=== PATIENT | female | born 1940 | race Caucasian/White ===

== ENCOUNTER 2021-05-27 11:37 | Outpatient (REF) | payer MEDICARE, SELFPAY ==
[2021-05-27 13:51] LABS: MANUAL DIFF FLAG NO
[2021-05-27 14:07] LABS: Basophils Absolute Auto 0.1 X10*3/uL (0.0-0.2); Basophils Percent Auto 0.6 % (0-2); Eosinophils Absolute Auto 0.8 X10*3/uL (0.0-0.4); Hematocrit 38.9 % (37-47); Hemoglobin 12.8 g/dl (12.0-16.0); Imm Gran Abs Auto 0.03 X10*3/uL (0.00-0.03); Imm Gran Pct Auto 0.4 % (0.0-0.4); Lymphocytes Absolute Auto 1.3 X10*3/uL (1.2-4.9); Lymphocytes Percent Auto 15.3 % (20-40); Mean Corpuscular HGB Conc 32.9 g/dl (31.0-35.0); Mean Corpuscular Hemoglobin 31.1 pg (27.0-33.0); Mean Corpuscular Volume 94.6 fL (80-98); Mean Platelet Volume 9.4 fL (9.4-12.3); Monocytes Absolute Auto 0.6 X10*3/uL (0.1-1.2); Monocytes Percent Auto 7.5 % (2-11); Neutrophils Absolute Auto 5.6 X10*3/uL (2.0-8.3); Neutrophils Percent Auto 66.2 % (45-73); Platelet Count 299 X10*3/uL (160-400); Red Blood Count 4.11 X10*6/uL (4.20-5.50); Red Cell Distribution Width 13.6 % (11.0-16.0); White Blood Count 8.4 X10*3/uL (4.8-10.8)
[2021-05-27 14:23] LABS: Anion Gap 17 (12-20); Blood Urea Nitrogen 15 mg/dL (9-16); Calcium 9.6 mg/dL (8.4-10.2); Carbon Dioxide 24 mmol/L (22-29); Chloride 104 mmol/L (96-108); Estimated Glomerular Filt Rate > 60; Glucose Random 114 mg/dL (60-115); Potassium 4.5 mmol/L (3.3-5.1); Sodium 140 mmol/L (135-145)
== END 2021-05-27 11:38 | disposition home or self-care (01) ==
LOC: HO.HMGCLDS 11:37
PROVIDERS: PCP Internal Medicine; Visit Provider Internal Medicine
DX: R60.9 Edema, unspecified (principal); I10 Essential (primary) hypertension
CPT/HCPCS: 36415; 80048; 85025

== ENCOUNTER 2021-07-28 11:17 | Outpatient (REF) | payer MEDICARE, SELFPAY ==
--- NOTE | ~2021-07-28 | MM_ITS ---
EXAMINATION: MM SCREENING DIGITAL BREAST TOMOSYNTHESIS, BILATERAL CLINICAL INFORMATION: Screening. Asymptomatic. The lifetime risk of breast cancer based on the Tyrer-Cuzick Model is under 2%. COMPARISON: Mammography: 07/22/2020, 04/04/2019, 02/02/2010 TECHNIQUE: Digital breast tomosynthesis is performed in both the craniocaudal and mediolateral oblique views along with computer-aided detection (CAD). Synthesized 2D images are generated from the tomosynthesis. FINDINGS: There are scattered areas of fibroglandular density (ACR BI-RADS breast composition Category b). There are no significant masses, abnormal calcifications, or other abnormalities. Parenchymal pattern is similar to prior studies. The axillary nodes are stable. Again, there are bilateral vascular calcifications and mild bilateral chronic nipple retraction. No significant changes from prior exams. MM/MM tomosynthesis screening BI IMPRESSION: No significant changes from prior studies. ASSESSMENT: BI-RADS 2: Benign RECOMMENDATION: Routine annual mammography screening. This patient's information was entered into a reminder system with a target due date for their next mammogram.
== END 2021-07-28 11:18 | disposition home or self-care (01) ==
LOC: HO.MAMMO 11:17
PROVIDERS: Visit Provider Internal Medicine
DX: Z12.31 Encounter for screening mammogram for malignant neoplasm of breast (principal)
CPT/HCPCS: 77063; 77067

== ENCOUNTER 2022-01-26 11:27 | Outpatient (REF) | payer MEDICARE, SELFPAY ==
[2022-01-26 13:39] LABS: MANUAL DIFF FLAG NO
[2022-01-26 13:47] LABS: Basophils Absolute Auto 0.1 X10*3/uL (0.0-0.2); Basophils Percent Auto 0.7 % (0-2); Eosinophils Absolute Auto 0.5 X10*3/uL (0.0-0.4); Eosinophils Percent Auto 6.1 % (0-4); Hematocrit 39.9 % (37.0-47.0); Imm Gran Abs Auto 0.03 X10*3/uL (0.00-0.03); Imm Gran Pct Auto 0.3 % (0.0-0.4); Lymphocytes Absolute Auto 1.4 X10*3/uL (1.2-4.9); Lymphocytes Percent Auto 15.4 % (20-40); Mean Corpuscular HGB Conc 32.6 g/dl (31.0-35.0); Mean Corpuscular Hemoglobin 30.5 pg (27.0-33.0); Mean Corpuscular Volume 93.7 fL (80.0-98.0); Mean Platelet Volume 9.7 fL (9.4-12.3); Monocytes Absolute Auto 0.6 X10*3/uL (0.1-1.2); Monocytes Percent Auto 7.1 % (2-11); Neutrophils Absolute Auto 6.3 x10*3/uL (2.0-8.3); Neutrophils Percent Auto 70.4 % (45-73); Platelet Count 329 X10*3/uL (160-400); Red Blood Count 4.26 X10*6/uL (4.20-5.50); Red Cell Distribution Width 13.4 % (11.0-16.0); White Blood Count 8.9 X10*3/uL (4.8-10.8)
[2022-01-26 13:59] LABS: Alanine Aminotransferase 27 U/L (0-31); Albumin Level 4.6 g/dL (3.5-5.0); Alkaline Phosphatase 65 U/L (39-117); Anion Gap 15 (12-20); Aspartate Amino Transferase 26 U/L (5-31); Bilirubin Total 2.2 mg/dL (0.0-1.0); Blood Urea Nitrogen 16 mg/dL (9-16); C Reactive Protein 0.12 mg/dL (< or = 0.50); Calcium 9.8 mg/dL (8.4-10.2); Carbon Dioxide 26 mmol/L (22-29); Chloride 105 mmol/L (96-108); Estimated Glomerular Filt Rate > 60; Glucose Random 111 mg/dL (60-115); Potassium 4.5 mmol/L (3.3-5.1); Sodium 141 mmol/L (135-145); Total Protein 7.5 g/dL (6.5-8.0)
[2022-01-26 14:20] LABS: Free T4 (Free Thyroxine) 0.94 ng/dL (0.71-1.85); Thyroid Stimulating Hormone 1.94 uIU/mL (0.32-4.0); Vitamin D 25-OH Total 20.9 ng/mL (>30)
[2022-01-26 14:24] LABS: Vitamin B12 437 pg/mL (200-900)
== END 2022-01-26 11:28 | disposition home or self-care (01) ==
LOC: HO.10HDL 11:27
PROVIDERS: Visit Provider Internal Medicine
DX: R53.83 Other fatigue (principal); I10 Essential (primary) hypertension; M19.90 Unspecified osteoarthritis, unspecified site; E78.00 Pure hypercholesterolemia, unspecified
CPT/HCPCS: 36415; 80053; 82306; 82607; 84439; 84443; 85025; 86140

== ENCOUNTER → 2022-03-11 09:22 | Outpatient (REF) | payer MEDICARE, SELFPAY ==
--- NOTE | 2022-03-11 09:27 | CA_ITS ---
Transthoracic Echocardiogram Patient (Last, First, Middle): Julita Pimentel, Gender: Female Date of : 1940 Age: 81 Procedure Date: 03/11/2022 Procedure Type: Transthoracic Echocardiogram Location: OP Height: 152.4 cm Weight: 81.65 kg BSA: 1.78 m2 Heart Rate: bpm BP: 144 / 76 mmHg Mirror Framer: SUSAN Referring MD: Maximo Vines MD Symptoms: R53.83 FATIGUE Study Quality: Fair Conclusions: - Normal left ventricular size and systolic function. There is mildly increased left ventricular wall thickness. The visually estimated ejection fraction is between 55-60%. - The basal inferior segment is akinetic. - Normal right ventricular cavity size and systolic function. - There is mild dilatation of the ascending aorta measuring 3.40 cm. Findings Left Ventricle Normal left ventricular size and systolic function. There is mildly increased left ventricular wall thickness. The visually estimated ejection fraction is between 55-60%. There is evidence of regional wall motion abnormalities. Abnormal diastolic function is noted. Spectral Doppler is indicative of an impaired relaxation filling pattern. E/E prime ratio is between 8 and 15 consistent with indeterminate filling pressures. Evidence suggests grade III (severe) diastolic dysfunction. Wall Motion Rest Echo Findings The basal inferior segment is akinetic. Right Ventricle Normal right ventricular cavity size and systolic function. Atria The left atrium is mildly dilated. Aortic Valve There is mild calcification of the aortic valve. There is moderate thickening of the aortic valve. There is no aortic valve stenosis. There is no aortic valve regurgitation. Mitral Valve There is moderate mitral annular calcification. There is mild to moderate mitral valve regurgitation. There is no mitral valve stenosis. Pulmonic Valve The pulmonic valve is likely normal. Tricuspid Valve Normal tricuspid valve structure and function. There is no tricuspid valve regurgitation. Normal right atrial pressure. There is no evidence of pulmonary hypertension. Great Vessels There is mild dilatation of the ascending aorta measuring 3.40 cm. The visualized portions of the pulmonary artery and branches are normal. Venous The inferior vena cava is normal in size and collapses greater than 50% with inspiration. Pericardium/Pleural There is no evidence of pericardial effusion. Measurements 2D Linear Measurements IVSd: 1.37 0.6-0.9/0.6-1.0 cm LVIDd: 4.03 3.9-5.3/4.2-5.9 cm LVIDd Index: 2.26 2.4-3.2/2.2-3.1 cm/m2 LVIDs: 2.91 2.0-3.6 cm LVPWd: 1.13 0.7-1.1 cm LA Diam: 4.10 2.7-3.8/3.0-4.0 cm LAIDs Index: 2.30 1.5-2.3 cm/m2 LV Mass: 221.51 67-162/88-224 g LV Mass Index: 124.45 43-95/49-115 g/m2 LVOT Diam: 1.90 3.0+(-)1.3 cm 2D Systolic Function EF 4C: 53.60 >55% EF 2C: 59.60 >55% EF BiP: 56.40 >55% Mitral Valve MV Pk E: 0.93 MV PK A: 1.00 MV Decel Time: 268.00 E/A: 0.90 E'Lateral: 9.25 E'Medial: 7.62 E/E' Med: 12.20 E/E' Lat: 10.10 PHT: 78.00 MVA PHT: 2.82 Decel Cotton: 3.48 Aortic Valve AoV Pk Henri: 1.30 AoV Mn Henri: 0.92 AoV VTI: 0.32 AoV Pk Grad: 7.00 Aov Mn Grad: 4.00 NELDA Cont.VTI: 2.08 LVOT LVOT Pk Ehnri: 1.10 LVOT Mn Henri: 0.73 LVOT VTI: 0.23 LVOT Pk Grad: 5.00 LVOT Mn Grad: 2.00 LVOT Diam: 1.90 LVOT Area: 2.84 Diastolic Function MV Pk E: 0.93 MV Pk A: 1.00 E/A: 0.90 E'Medial: 7.62 E/E' Med: 12.20 E' Laterial: 9.25 E/E' Lat: 10.10 Right Ventricle TAPSE (mm): 24.30 TVS' Henri: 13.30 Tricuspid Valve TR Pk Henri: 2.13 TR Pk Grad: 18.00 RA Press: 3.00 RVSP: 21.00 Great Vessels Aorta Sinus of Valsalva: 3.32 2.0-3.[address] Ridge: 2.66 1.7-3.4 cm Ao Asc: 3.40 2.1-3.4 cm Ao Arch: 3.00 Updated in Other Vendor System with Status of Final Norman Coffman MD electronically signed on 03/12/2022 11:03:56 PM with status of Final
== END ==
LOC: HO.CARD 09:22
PROVIDERS: PCP Internal Medicine; Visit Provider Internal Medicine
DX: R53.83 Other fatigue (principal)
CPT/HCPCS: 93306

== ENCOUNTER 2022-05-12 13:37 | Outpatient (REF) | payer MEDICARE, SELFPAY ==
[2022-05-12 16:52] LABS: MANUAL DIFF FLAG NO
[2022-05-12 16:54] LABS: Basophils Absolute Auto 0.1 X10*3/uL (0.0-0.2); Basophils Percent Auto 0.8 % (0-2); Eosinophils Absolute Auto 0.4 X10*3/uL (0.0-0.4); Eosinophils Percent Auto 5.9 % (0-4); Hematocrit 38.2 % (37.0-47.0); Hemoglobin 12.5 g/dl (12.0-16.0); Imm Gran Abs Auto 0.03 X10*3/uL (0.00-0.03); Imm Gran Pct Auto 0.4 % (0.0-0.4); Lymphocytes Absolute Auto 1.7 X10*3/uL (1.2-4.9); Lymphocytes Percent Auto 23.2 % (20-40); Mean Corpuscular HGB Conc 32.7 g/dl (31.0-35.0); Mean Corpuscular Hemoglobin 30.8 pg (27.0-33.0); Mean Corpuscular Volume 94.1 fL (80.0-98.0); Mean Platelet Volume 10.1 fL (9.4-12.3); Monocytes Absolute Auto 0.5 X10*3/uL (0.1-1.2); Monocytes Percent Auto 7.2 % (2-11); Neutrophils Absolute Auto 4.6 x10*3/uL (2.0-8.3); Neutrophils Percent Auto 62.5 % (45-73); Platelet Count 310 X10*3/uL (160-400); Red Blood Count 4.06 X10*6/uL (4.20-5.50); Red Cell Distribution Width 13.4 % (11.0-16.0); White Blood Count 7.3 X10*3/uL (4.8-10.8)
[2022-05-12 16:59] LABS: INTERNATIONAL NORM RATIO 1.1 (0.9-1.1); Prothrombin Time 12.4 SEC (9.9-13.0)
[2022-05-12 17:03] LABS: Anion Gap 12 (12-20); Blood Urea Nitrogen 17 mg/dL (9-16); Calcium 9.2 mg/dL (8.4-10.2); Carbon Dioxide 27 mmol/L (22-29); Chloride 104 mmol/L (96-108); Estimated Glomerular Filt Rate > 60; Glucose Random 158 mg/dL (60-115); Potassium 4.2 mmol/L (3.3-5.1); Sodium 139 mmol/L (135-145)
== END 2022-05-12 13:38 | disposition home or self-care (01) ==
LOC: HO.HMGCLDS 13:37
PROVIDERS: Visit Provider Internal Medicine Cardiovascular Disease
DX: I21.19 ST elevation (STEMI) myocardial infarction involving other coronary artery of inferior wall (principal)
CPT/HCPCS: 36415; 80048; 85025; 85610

== ENCOUNTER 2022-06-01 10:02 | Outpatient (REF) | payer MEDICARE, SELFPAY ==
--- NOTE | 2022-06-01 11:31 | MHC.AU.ANO ---
Adult Audiological Evaluation Date of Visit: 06/01/22 Reason for Appointment: Patient reports that her family has been expressing concerns about her hearing. She feels she hears well one-on-one and in quiet settings. When she is in a large group setting or in background noise, she needs to ask for repetition. Does patient feel they have a hearing loss?: Yes If Yes, Which Ear?: Both Ears Has hearing been tested previously?: No Hearing Handicap Inventory: HHIE SCORE: 16 Based on HHIE score, patient has: Mild to moderate perceived hearing handicap Ear History: Ear Deformity: None Reported Recent Ear Drainage: None Reported Recent Ear Pain: None Reported Recent Ear Infections: None Reported Ear Infections in Childhood: None Reported History of Ear Wax Buildup: None Reported Previous Ear Surgery: None Reported Bothersome Tinnitus/Ringing/Noises in Ears: None Reported Ear used on the phone: Right Ear Blocked/Full Sensation in Ear(s): None Reported History of occupational noise exposure?: No History: No Medical History: Medical History: Heart Problems, High Blood Pressure Medication List: Aspirin, Losartan, Atorvastatin, Metoprolol, Isosorbide mononitrate Otoscopy: Right Ear: Unremarkable Left Ear: Unremarkable Tympanometry: Tympanometry performed due to: To assess integrity of the middle ear system Right Ear: Normal Middle Ear System (Type A) Left Ear: Normal Middle Ear System (Type A) Hearing Evaluation: Transducer(s) Used: Insert Earphones Method: Conventional Audiometry Stimuli Used: Pure Tones Right Ear: Description of Hearing: Overall mild sensorineural hearing loss Left Ear: Description of Hearing: Overall mild sensorineural hearing loss Speech Recognition Threshold (SRT): Method Used: Monitored Live Voice Stimuli Used: Spondee Words Right Ear: 35 dBHL Left Ear: 30 dBHL Word Discrimination: Method: Monitored Live Voice Word Lists Used: W-22 Right Ear: 84% at 65 dBHL Left Ear: 100% at 65 dBHL Most Comfortable Level (MCL): Right Ear: 65 dBHL Left Ear: 65 dBHL Interpretation of Results: Patient presents with mild sensorineural hearing loss. With this degree of hearing loss, she is likely still hearing well in quiet settings. Difficulty hearing in noisier places can be expected, as well as difficulty if the person talking is not [id number] or close by. Recommendations: Audiological re-evaluation in one year. Patient does not feel the hearing loss is significantly impacting day-to-day life at this time. Hearing aids may not yet be warranted. If she was interested in trying hearing aids, she would be a candidate for [id number] (OTC) hearing aids, such as the [employer] Sound[employer]. Diagnosis: Primary Diagnosis: H90.3 Bilateral Sensorineural Hearing Loss Signature: Provider: Vasiliy Lawton, CCC-A
== END 2022-06-01 10:03 | disposition home or self-care (01) ==
LOC: HO.SH 10:02
PROVIDERS: Visit Provider Internal Medicine
DX: Z01.118 Encounter for examination of ears and hearing with other abnormal findings (principal); H90.3 Sensorineural hearing loss, bilateral
CPT/HCPCS: 92557; 92567

== ENCOUNTER 2022-06-22 08:47 | Outpatient (REF) | payer MEDICARE, SELFPAY ==
[2022-06-22 11:48] LABS: Cholesterol 198 mg/dL; HDL Cholesterol 36 mg/dL; LDL Cholesterol Calculated 114 mg/dl; Triglycerides 244 mg/dL
== END 2022-06-22 08:48 | disposition home or self-care (01) ==
LOC: HO.HMGCLDS 08:47
PROVIDERS: PCP Internal Medicine; Visit Provider Nurse Practitioner
DX: I25.10 Atherosclerotic heart disease of native coronary artery without angina pectoris (principal)
CPT/HCPCS: 36415; 80061

== ENCOUNTER 2022-10-27 10:58 | Outpatient (REF) | payer MEDICARE, SELFPAY ==
--- NOTE | ~2022-10-27 | MM_ITS ---
EXAMINATION: MM SCREENING DIGITAL BREAST TOMOSYNTHESIS, BILATERAL CLINICAL INFORMATION: Screening. Asymptomatic. The lifetime risk of breast cancer based on the Tyrer-Cuzick Model is 1.2%. COMPARISON: Mammography: December 28, 2020 and studies dating back to February 02, 2010 TECHNIQUE: Digital breast tomosynthesis is performed in both the craniocaudal and mediolateral oblique views along with computer-aided detection (CAD). Synthesized 2D images are generated from the tomosynthesis. Right breast exaggerated craniocaudal view also performed FINDINGS: There are scattered areas of fibroglandular density (ACR BI-RADS breast composition Category b). There are no significant masses, abnormal calcifications, or other abnormalities. MM/MM tomosynthesis screening BI IMPRESSION: No significant change from ASSESSMENT: BI-RADS 1: Negative RECOMMENDATION: Routine annual mammography screening. This patient's information was entered into a reminder system with a target due date for their next mammogram.
== END 2022-10-27 10:59 | disposition home or self-care (01) ==
LOC: HO.MAMMO 10:58
PROVIDERS: PCP Internal Medicine; Visit Provider Internal Medicine
DX: Z12.31 Encounter for screening mammogram for malignant neoplasm of breast (principal)
CPT/HCPCS: 77063; 77067

== ENCOUNTER 2023-01-11 08:36 | Outpatient (REF) | payer MEDICARE, SELFPAY ==
[2023-01-11 12:10] LABS: Alanine Aminotransferase 24 U/L (0-31); Albumin Level 4.4 g/dL (3.5-5.0); Alkaline Phosphatase 65 U/L (39-117); Anion Gap 15 (12-20); Aspartate Amino Transferase 22 U/L (5-31); Bilirubin Total 2.2 mg/dL (0.0-1.0); Blood Urea Nitrogen 14 mg/dL (9-16); Calcium 9.5 mg/dL (8.4-10.2); Carbon Dioxide 25 mmol/L (22-29); Chloride 107 mmol/L (96-108); Cholesterol 204 mg/dL; Estimated Glomerular Filt Rate > 60; Glucose Random 123 mg/dL (60-115); HDL Cholesterol 41 mg/dL; LDL Cholesterol Calculated 121 mg/dl; Potassium 4.5 mmol/L (3.3-5.1); Sodium 142 mmol/L (135-145); Total Protein 7.1 g/dL (6.5-8.0); Triglycerides 213 mg/dL
== END 2023-01-11 08:37 | disposition home or self-care (01) ==
LOC: HO.HMGCLDS 08:36
PROVIDERS: Visit Provider Nurse Practitioner
DX: I25.10 Atherosclerotic heart disease of native coronary artery without angina pectoris (principal)
CPT/HCPCS: 36415; 80053; 80061; 83735

== ENCOUNTER 2023-06-07 15:18 | Outpatient (REF) | payer MEDICARE, SELFPAY ==
--- NOTE | ~2023-06-07 | XR_ITS ---
EXAMINATION: XR CHEST CLINICAL INFORMATION: Cough COMPARISON: 09/27/2019 TECHNIQUE: 2 views of the chest were obtained. FINDINGS: No significant abnormality is noted involving the heart, lungs, mediastinum, bony thorax or soft tissues. XR/XR chest 2V IMPRESSION: Unremarkable examination.
[2023-06-07 15:54] LABS: Basophils Absolute Auto 0.1 X10*3/uL (0.0-0.2); Basophils Percent Auto 0.8 % (0-2); Eosinophils Absolute Auto 0.4 X10*3/uL (0.0-0.4); Hematocrit 39.5 % (37.0-47.0); Hemoglobin 13.1 g/dl (12.0-16.0); Imm Gran Abs Auto 0.03 X10*3/uL (0.00-0.03); Imm Gran Pct Auto 0.3 % (0.0-0.4); Lymphocytes Absolute Auto 2.1 X10*3/uL (1.2-4.9); Lymphocytes Percent Auto 19.9 % (20-40); MANUAL DIFF FLAG NO; Mean Corpuscular HGB Conc 33.2 g/dl (31.0-35.0); Mean Corpuscular Hemoglobin 30.4 pg (27.0-33.0); Mean Corpuscular Volume 91.6 fL (80.0-98.0); Mean Platelet Volume 8.7 fL (9.4-12.3); Monocytes Absolute Auto 0.7 X10*3/uL (0.1-1.2); Monocytes Percent Auto 6.5 % (2-11); Neutrophils Absolute Auto 7.2 x10*3/uL (2.0-8.3); Neutrophils Percent Auto 68.5 % (45-73); Platelet Count 311 X10*3/uL (160-400); Red Blood Count 4.31 X10*6/uL (4.20-5.50); Red Cell Distribution Width 13.2 % (11.0-16.0); White Blood Count 10.5 X10*3/uL (4.8-10.8)
[2023-06-07 17:35] LABS: D Dimer High Sensitivity 443 NG/ML
[2023-06-07 21:36] LABS: Alanine Aminotransferase 18 U/L (0-31); Albumin Level 4.6 g/dL (3.5-5.0); Alkaline Phosphatase 72 U/L (39-117); Anion Gap 17 (12-20); Aspartate Amino Transferase 18 U/L (5-31); Bilirubin Total 2.7 mg/dL (0.0-1.0); Blood Urea Nitrogen 13 mg/dL (9-16); C Reactive Protein 0.84 mg/dL (< or = 0.50); Calcium 10.3 mg/dL (8.4-10.2); Carbon Dioxide 24 mmol/L (22-29); Chloride 103 mmol/L (96-108); Estimated Glomerular Filt Rate > 60; Glucose Random 108 mg/dL (60-115); Potassium 4.3 mmol/L (3.3-5.1); Sodium 140 mmol/L (135-145); Total Protein 7.8 g/dL (6.5-8.0)
== END 2023-06-07 15:19 | disposition home or self-care (01) ==
LOC: HO.LAB 15:18
PROVIDERS: PCP Internal Medicine; Visit Provider Internal Medicine
DX: Z13.89 Encounter for screening for other disorder (principal)
CPT/HCPCS: 36415; 71046; 80053; 85025; 85379; 86140

== ENCOUNTER 2023-06-07 18:14 | Emergency (ER) | payer MEDICARE, SELFPAY ==
--- NOTE | ~2023-06-07 | CT_ITS ---
EXAMINATION: CT ANGIOGRAM OF THE CHEST WITH AND WITHOUT CONTRAST (CT PULMONARY ANGIOGRAM FOR PE) CLINICAL INFORMATION: Reason for Exam elevated d dimer COMPARISON: Chest x-ray from the same day TECHNIQUE: Prior to contrast administration, noncontrast localization images were obtained. Subsequently, multidetector volumetric imaging was performed from the thoracic inlet to below the diaphragms following the administration of 65 mL Omnipaque 350 intravenous contrast. No contrast reaction reported Sagittal, coronal, and MIP oblique sagittal reformatted images were obtained on the CT workstation, uploaded to PACS, and reviewed. This CT examination was performed using dose optimization techniques as appropriate, variously including the following: *Automated exposure control *Adjustment of mA and/or kV according to patient size (this includes techniques or standardized protocols for targeted exams where dose is matched to indication/reason for exam; i.e. extremities or head) *Use of iterative reconstruction technique Total exam dose-length product 378 mGy-cm FINDINGS: QUALITY OF STUDY/CONTRAST BOLUS: Satisfactory. PULMONARY ARTERIES: No central or proximal segmental pulmonary embolus is seen. However, there is significantly limited evaluation of the more distal vasculature due to respiratory motion artifact. THORACIC AORTA: No aneurysm. Moderate atherosclerotic calcification. LUNG: Limited detailed evaluation due to respiratory motion artifact. No regions of consolidation. There is a 4 mm superior left lower lobe nodule on image 119/509. PLEURA: No pneumothorax or pleural effusion. MEDIASTINUM: Visualized thyroid gland is grossly unremarkable. Small hiatal hernia is present. There are subcentimeter mediastinal lymph nodes within the range of normal variation. Cardiac size is within normal limits; no pericardial effusion. CORONARY ARTERY CALCIFICATION: Present CHEST WALL/AXILLA: No axillary or internal mammary lymphadenopathy. OSSEOUS STRUCTURES: Degenerative changes are noted in the spine. UPPER ABDOMEN: Unremarkable. No reflux of contrast into the hepatic veins to suggest elevated right heart pressures. CT/CT angio chest PE protocol IMPRESSION: 1. No central or proximal segmental pulmonary embolus identified. However, evaluation of the more distal vasculature is significantly limited due to respiratory motion artifact. 2. Left lower lobe 4 mm lung nodule, nonspecific. According to the UPDATED 2017 Fleischner Society recommendations, the advised follow-up imaging for solid nodules < 6 mm is: LOW RISK PATIENT: No routine follow-up. HIGH RISK PATIENT: Optional CT at 12 months. VTE: negative.
[2023-06-07 19:17] VITALS: BP 175/83; PULSE 88; RESP 18; TEMP 36.6; O2SAT 95; BMI 36.2
--- NOTE | 2023-06-07 19:18 | ED_ITS ---
[facility] - General Adult General Chief complaint: Upper Respiratory Symptoms Stated complaint: Sent by Dr. Vines for a procedure? Time Seen by Provider: 06/07/23 21:47 Source: patient Mode of arrival: ambulatory History of Present Illness [facility] narrative: 83-year-old female who is had 3-4 months of dry cough without fever, chills, chest pain/palpitations, increase shortness of breath from baseline. Patient states that she was initially instructed to try Benadryl which she has used intermittently and then states that her cough last night increased significantly and she followed up with her primary care provider today who performed a chest x-ray as well as a D-dimer. Patient herself denies any lower extremity swelling or edema, she denies any remote history of smoking and no history of asthma but states that she has been congested. Related Data Home Medications Medication Instructions Recorded Confirmed aspirin 81 mg tablet,delayed 81 mg PO DAILY 02/01/23 release isosorbide mononitrate 60 mg 60 mg PO DAILY 02/01/23 tablet,extended release 24 hr losartan 50 mg tablet 50 mg PO DAILY 02/01/23 metoprolol tartrate 25 mg tablet 25 mg PO BID 02/01/23 atorvastatin 20 mg tablet 40 mg PO DAILY 05/31/23 Previous Rx's Medication Instructions Recorded cephalexin 250 mg capsule 250 mg PO Q12H 7 days #14 caps 02/01/23 azithromycin 250 mg tablet See Rx Instructions PO .COMPLEX #6 05/31/23 tabs Allergies Allergy/AdvReac Type Severity Reaction Status Date / Time latex [LATEX] Allergy Unknown UNSURE Verified 06/07/23 19:22 Review of Systems Review of Systems: Pertinent positives and negatives as stated in [facility] Past Medical History Source: nursing notes reviewed Social History Social History Patient Tobacco Use Status: Never used Tobacco Smoked in Last 30 Days: No Use of substances other than those prescribed or required for medical reasons: No Advance Directives: No Advance Directives Information Provided: Yes Physical Exam ED Vital Signs: Vital Signs - 24 hr 06/07/23 19:17 06/07/23 21:58 06/07/23 22:17 Temperature 97.8 F 98.9 F Pulse Rate 88 86 Respiratory Rate 18 17 Blood Pressure 175/83 H 174/85 H Pulse Oximetry 95 96 97 Oxygen Delivery Method Room Air Room Air Room Air 06/07/23 22:17 06/07/23 22:29 Temperature 98.7 F Pulse Rate 88 84 Respiratory Rate 22 H 16 Blood Pressure 174/85 H 148/83 H Pulse Oximetry 97 98 Oxygen Delivery Method Room Air Room Air BMI result Body Mass Index 36.2 VITAL SIGNS: Reviewed. GENERAL: Well developed, well nourished, in no acute distress. HEAD: Normocephalic/atraumatic EYES: PERRLA, EOMI EARS: Ext canals without abnormality NOSE: Nares patent bilateral OROPHARYNX: no oral lesions noted, posterior pharynx clear but has noted cobblestoning NECK: Supple, no adenopathy LUNGS: Normal breath sounds. No adventitious sounds or accessory muscle use. SpO2<98> CARDIOVASCULAR: Regular rate and rhythm without noted murmurs, no JVD or lower extremity edema. ABDOMEN: Soft, non-tender, non-distended with bowel sounds. MUSCULOSKELETAL: No tenderness, deformities, or effusions noted on gross inspection. EXTREMITIES: No cyanosis, clubbing or edema. SKIN: Inspection of the skin reveals no rashes NEUROLOGIC: Alert and oriented x 4. Strength and sensation to light touch were grossly intact x 4. Course Course Course Narrative: This is a rapid medical exam: Additional HPI, ROS, PE not included below will be deferred to primary provider. Patient sent to ED by Dr. Miranda for rule out PE, as she had elevated D-dimer on labs drawn this afternoon. Patient reports cough for the past 3 months. States cough is occasionally productive of clear or yellow sputum. Denies fevers. Denies chest pain. Plan: CTA chest Medications Administered Discontinued Medications Generic Name Dose Route Start Last Admin Trade Name Freq PRN Reason Stop Dose Admin Fluticasone Propionate 2 spray 06/07/23 22:42 06/07/23 23:37 Fluticasone Propionate Nasal 16 Gm [place] NOSTRIL-B 06/07/23 22:43 Not Given ONCE ONE Iohexol 100 ml 06/07/23 22:47 06/07/23 22:48 Iohexol 350 Mg/Ml 100 Ml Infus..Btl IV 06/07/23 22:48 65 ml ONCE ONE Administration Loratadine 10 mg 06/07/23 22:42 06/07/23 23:37 Loratadine 10 Mg Tablet PO 06/07/23 22:43 10 mg ONCE ONE Administration Medical Decision Making Medical Decision Making [facility] Narrative: 83-year-old female with history and clinical presentation not consistent with pneumonia/COPD/asthma, DDX: CHF, Seasonal allergies given congestion/cobblestoning/dry cough, acid reflux, less likely felt to be VTE, brief overview of chest x-ray is negative for evidence to suggest a pneumonia, although the D-dimer is elevated when age adjusted it is only a mild elevation as age adjusted value is 405. However, patient was referred into the emergency room for the elevated D-dimer and will proceed with CT angio with PE protocol. Patient is hemodynamically stable with good oxygenation and no tachypnea. There is no evidence of lower extremity swelling erythema. I reviewed all investigations, BNP is within normal limits, CT angio does not demonstrate any VTE. She is otherwise discharged home in stable condition. Hematology and chemistry indices are without gross abnormalities. Differential Diagnosis Differential Diagnoses: The differential diagnosis associated with the presentation includes Please see the discussion above Admission/Observation Consideration of admission/observation: Escalation of care including admission/observation considered Lab Data [facility] Lab Attestation statement: I reviewed the patient's lab results. Please see the discussion above Labs: Lab Results 06/07/23 Range/Units 22:24 B-Natriuretic Peptide 57 (<100) pg/mL Radiology Impression Radiologist Impression: No VTE, otherwise my interpretation is in agreement with radiology's impression. External Record Review External record reviewed: Outpatient record and Prior outpatient labs Discharge Plan Discharge Clinical Impression: Seasonal allergic rhinitis Patient Disposition: Home, Self-Care Instructions: Loratadine (By mouth), Fluticasone (Into the nose), Allergic Rhinitis (ED), Allergies (ED), How to Use Nasal [place] (ED) Additional Instructions: 1. Recommend initiation of loratadine (Claritin) and fluticasone (Flonase) to help reduce the allergen load that you are experiencing currently. 2. Please follow-up with your primary care doctor, you do not have any demonstrated clot within your lung. Return to the ER for any worsening symptoms. Prescriptions: No Action aspirin 81 mg tablet,delayed release (DR/EC) 81 mg PO DAILY metoprolol tartrate 25 mg tablet 25 mg PO BID isosorbide mononitrate 60 mg tablet extended release 24 hr 60 mg PO DAILY losartan 50 mg tablet 50 mg PO DAILY cephalexin 250 mg capsule 250 mg PO Q12H 7 Days Qty: 14 0RF atorvastatin 20 mg tablet 40 mg PO DAILY azithromycin 250 mg tablet See Rx Instructions PO .COMPLEX Qty: 6 0RF Rx Instructions: For 250 mg dose pack: take 500 mg today (day 1), then 250 mg for 4 days (days 2-5) PO Referrals: Maximo Vines MD [Primary Care Provider] -
[2023-06-07 21:58] VITALS: BP 174/85; PULSE 86; RESP 17; TEMP 37.2; O2SAT 96
[2023-06-07 22:17] VITALS: BP 174/85; PULSE 87; PULSE 88; RESP 22; O2SAT 97
[2023-06-07 22:29] VITALS: BP 148/83; PULSE 84; RESP 16; TEMP 37.1; O2SAT 98
--- NOTE | 2023-06-07 22:30 | PC.NURSE ---
20g piv to right ac placed. md mendez at bedside. pt to ct scan. talking w/o issue. cough, dry. bp down to 148/83. no cp. reports french baseline due to uri sx.
[2023-06-07] MEDS: iohexoL 350 MG/ML 100 ML INFUS..BTL IV (22:48)
[2023-06-07 23:24] LABS: B Type Natriuretic Peptide 57 pg/mL (<100)
[2023-06-07] MEDS: Loratadine 10 MG TABLET PO (23:37)
--- NOTE | 2023-06-08 00:26 | PC.NURSE ---
Reviewed discharge instructions with pt, pt verbalized understanding. no sign of distress. Will continue to monitor.
== END 2023-06-08 00:27 | disposition home or self-care (01) ==
PROVIDERS: Emergency Provider Student in an Organized Health Care Education/Training Program; PCP Internal Medicine
DX: J30.2 Other seasonal allergic rhinitis (principal); R06.02 Shortness of breath; Z79.82 Long term (current) use of aspirin; Z79.899 Other long term (current) drug therapy
CPT/HCPCS: 36415; 71046; 71275; 80053; 83880; 85025; 85379; 86140; 99284; 99285; Q9967

== ENCOUNTER 2023-06-21 08:55 | Outpatient (REF) | payer MEDICARE, SELFPAY ==
[2023-06-21 11:16] LABS: MANUAL DIFF FLAG NO
[2023-06-21 11:37] LABS: Basophils Absolute Auto 0.1 X10*3/uL (0.0-0.2); Basophils Percent Auto 1.1 % (0-2); Eosinophils Absolute Auto 0.4 X10*3/uL (0.0-0.4); Eosinophils Percent Auto 5.8 % (0-4); Hematocrit 39.3 % (37.0-47.0); Hemoglobin 12.6 g/dl (12.0-16.0); Imm Gran Abs Auto 0.03 X10*3/uL (0.00-0.03); Imm Gran Pct Auto 0.5 % (0.0-0.4); Lymphocytes Absolute Auto 1.5 X10*3/uL (1.2-4.9); Lymphocytes Percent Auto 22.9 % (20-40); Mean Corpuscular HGB Conc 32.1 g/dl (31.0-35.0); Mean Corpuscular Hemoglobin 30.6 pg (27.0-33.0); Mean Corpuscular Volume 95.4 fL (80.0-98.0); Mean Platelet Volume 9.6 fL (9.4-12.3); Monocytes Absolute Auto 0.4 X10*3/uL (0.1-1.2); Monocytes Percent Auto 6.6 % (2-11); Neutrophils Absolute Auto 4.1 x10*3/uL (2.0-8.3); Neutrophils Percent Auto 63.1 % (45-73); Platelet Count 296 X10*3/uL (160-400); Red Blood Count 4.12 X10*6/uL (4.20-5.50); Red Cell Distribution Width 13.4 % (11.0-16.0); White Blood Count 6.5 X10*3/uL (4.8-10.8)
[2023-06-21 11:57] LABS: Magnesium 2.2 mg/dL (1.6-2.6)
[2023-06-21 12:00] LABS: Alanine Aminotransferase 32 U/L (0-31); Albumin Level 4.2 g/dL (3.5-5.0); Alkaline Phosphatase 61 U/L (39-117); Anion Gap 10 (12-20); Aspartate Amino Transferase 22 U/L (5-31); Bilirubin Total 1.7 mg/dL (0.0-1.0); Blood Urea Nitrogen 15 mg/dL (9-16); Calcium 9.5 mg/dL (8.4-10.2); Carbon Dioxide 29 mmol/L (22-29); Chloride 105 mmol/L (96-108); Cholesterol 178 mg/dL; Estimated Glomerular Filt Rate > 60; Glucose Fasting 117 mg/dL (60-99); HDL Cholesterol 37 mg/dL; LDL Cholesterol Calculated 93 mg/dl; Potassium 4.3 mmol/L (3.3-5.1); Sodium 140 mmol/L (135-145); Total Protein 7.1 g/dL (6.5-8.0); Triglycerides 240 mg/dL
[2023-06-21 12:20] LABS: Vitamin D 25-OH Total 43.1 ng/mL (>30)
== END 2023-06-21 08:56 | disposition home or self-care (01) ==
LOC: HO.HMGCLDS 08:55
PROVIDERS: Nurse Practitioner; PCP Internal Medicine; Visit Provider Internal Medicine
DX: I25.10 Atherosclerotic heart disease of native coronary artery without angina pectoris (principal); I10 Essential (primary) hypertension; E78.00 Pure hypercholesterolemia, unspecified; E55.9 Vitamin D deficiency, unspecified
CPT/HCPCS: 36415; 80053; 80061; 82306; 83735; 85025

== ENCOUNTER 2023-10-06 10:32 | Outpatient (REF) | payer MEDICARE, SELFPAY ==
[2023-10-06 11:47] LABS: MANUAL DIFF FLAG NO
[2023-10-06 12:05] LABS: Basophils Absolute Auto 0.1 X10*3/uL (0.0-0.2); Eosinophils Absolute Auto 0.6 X10*3/uL (0.0-0.4); Eosinophils Percent Auto 8.2 % (0-4); Hematocrit 38.1 % (37.0-47.0); Hemoglobin 12.8 g/dl (12.0-16.0); Imm Gran Abs Auto 0.03 X10*3/uL (0.00-0.03); Imm Gran Pct Auto 0.4 % (0.0-0.4); Lymphocytes Absolute Auto 1.5 X10*3/uL (1.2-4.9); Lymphocytes Percent Auto 19.6 % (20-40); Mean Corpuscular HGB Conc 33.6 g/dl (31.0-35.0); Mean Corpuscular Hemoglobin 31.4 pg (27.0-33.0); Mean Corpuscular Volume 93.4 fL (80.0-98.0); Mean Platelet Volume 9.2 fL (9.4-12.3); Monocytes Absolute Auto 0.6 X10*3/uL (0.1-1.2); Monocytes Percent Auto 7.6 % (2-11); Neutrophils Absolute Auto 4.9 x10*3/uL (2.0-8.3); Neutrophils Percent Auto 63.2 % (45-73); Platelet Count 314 X10*3/uL (160-400); Red Blood Count 4.08 X10*6/uL (4.20-5.50); Red Cell Distribution Width 13.4 % (11.0-16.0); White Blood Count 7.8 X10*3/uL (4.8-10.8)
[2023-10-06 12:34] LABS: Anion Gap 11 (12-20); Blood Urea Nitrogen 13 mg/dL (9-16); Calcium 9.6 mg/dL (8.4-10.2); Carbon Dioxide 29 mmol/L (22-29); Chloride 107 mmol/L (96-108); Estimated Glomerular Filt Rate > 60; Glucose Random 113 mg/dL (60-115); Sodium 143 mmol/L (135-145)
[2023-10-06 12:56] LABS: Erythrocyte Sedimentation Rate 14 MM/HR (0-20)
[2023-10-09 16:19] LABS: Immunoglobulin E 3246 kU/L (<OR=114)
== END 2023-10-06 10:33 | disposition home or self-care (01) ==
LOC: HO.LAB 10:32
PROVIDERS: PCP Internal Medicine; Visit Provider Hospitalist
DX: L30.9 Dermatitis, unspecified (principal); T78.40XA Allergy, unspecified, initial encounter; R05.3 Chronic cough; K44.9 Diaphragmatic hernia without obstruction or gangrene; J45.40 Moderate persistent asthma, uncomplicated; R91.1 Solitary pulmonary nodule
CPT/HCPCS: 36415; 80048; 82785; 85025; 85652; 86003; 99202

== ENCOUNTER 2023-10-06 10:32 | Outpatient (AMB) | payer MEDICARE, SELFPAY ==
[2023-10-06 10:56] VITALS: PULSE 78; O2SAT 98; BMI 35.2
--- NOTE | 2023-10-06 10:56 | A.OFFVIS_ITS ---
Intake Vital Signs 10/06/23 10:56 Height 5 ft Weight 180 lb BMI 35.2 Pulse 78 Pulse Source Pulse Oximeter Pulse Oximetry (%) 98 Oxygen Delivery Method Room Air Intake Visit Reasons: Pulm Nodule Bread Panner Required: No Allergies latex [LATEX] Allergy (Unknown, Verified 10/06/23 10:57) UNSURE HPI HPI Comments History of Present Illness Details The patient is here for a pulmonary evaluation. The patient is an 83 year woman with unremarkable past medical history until back in the spring when she was exposed to sick contacts. After that she started having a cough. She has been evaluated for the cough since then. The cough varies usually nonproductive in nature. Moderate severity. She did take a course of prednisone that partially helped the symptoms. In addition to that she has been on albuterol with again partial resolution of the symptoms. As far as her sym ptoms she had blood work done her D-dimer was elevated back in May and the patient did undergo a CTA. I personally reviewed the CT scan with the patient. She has evidence of bronchitis and also mosaic pattern suggesting air trapping in small airways disease. The patient also had a small pulmonary nodule which of does not appear to be concerning but will need follow-up. In addition to that the patient did have a small to moderate-sized hiatal hernia. On examination the patient does have a prolonged expiratory phase and also post exhalation cough. Definitely has a component of obstructive airway disease. She does have an elevation in the eosinophils suggesting an allergic component as well. Therefore she has multiple reasons to have a cough including a component of asthmatic bronchitis and also has the hiatal hernia. We did talk about reflux diet and will perform a barium swallow. The patient will also get allergy testing and we will optimize her respiratory therapy. COUNT INCLUDES THE [facility] Medical History (Updated 10/06/23 @ 13:14 by Indra Joseph MD) Pulmonary nodule Eczema Allergies Asthma Hiatal hernia Chronic cough Social History Patient Tobacco Use Status: Never used Tobacco Physical Exam Vital Signs: Last Vital Signs Pulse 78 10/06/23 10:56 Pulse Ox 98 10/06/23 10:56 Oxygen Delivery Method Room Air 10/06/23 10:56 BMI result Body Mass Index 35.2 Assessment & Plan Assessment & Plan (1) Chronic cough: Code(s): R05.3 - Chronic cough (2) Hiatal hernia: Code(s): K44.9 - Diaphragmatic hernia without obstruction or gangrene (3) Asthma: Code(s): J45.909 - Unspecified asthma, uncomplicated Qualifiers: Asthma complication type: uncomplicated Asthma persistence: persistent Asthma severity: moderate Qualified Code(s): J45.40 - Moderate persistent asthma, uncomplicated (4) Pulmonary nodule: Code(s): R91.1 - Solitary pulmonary nodule Plan start Trelegy stop Flovenet SERGIO as needed Allergy/bloodwork PFTs Barium swallow reflux diet sleep elevated CT chest 05/2024 F/U 8-10 weeks Orders: Orders Rast Allergen Today J45.909 - Unspecified asthma, uncomplicated, L30.9 - Dermatitis, unspecified, T78.40XA - Allergy, unspecified, initial encounter Complete Blood Count Auto Diff Today J.90 - Unspecified asthma, uncomplicated, L30.9 - Dermatitis, unspecified, T78.40XA - Allergy, unspecified, initial encounter Basic Metabolic Panel Today [facility].90 - Unspecified asthma, uncomplicated, L30.9 - Dermatitis, unspecified, T78.40XA - Allergy, unspecified, initial encounter Immunoglobulin E Today J.909 - Unspecified asthma, uncomplicated, L30.9 - Dermatitis, unspecified, T78.40XA - Allergy, unspecified, initial encounter Erythrocyte Sedimentation Rate Today [facility].909 - Unspecified asthma, uncomplica bennett, L30.9 - Dermatitis, unspecified, T78.40XA - Allergy, unspecified, initial encounter [place] barium swallow Today J.909 - Unspecified asthma, uncomplicated, K21.9 - Gastro-esophageal reflux disease without esophagitis, L30.9 - Dermatitis, unspecified, T78.40XA - Allergy, unspecified, initial encounter PFT pulmonary function test Today J45.909 - Unspecified asthma, uncomplicated Medications: New azithromycin 500 mg PO DAILY 5 days 5 tabs 0RF gizcbxxhvwy-ebfvqoetw-lhiedslf 200-62.5-25 mcg (Trelegy Ellipta) 1 inh inhalation DAILY 30 days 60 ea 12RF albuterol sulfate 90 mcg/actuation 2 inhalations inhalation Q6H 30 days PRN 18 grams 12RF shortness of breath or wheezing J44.9 - Chronic obstructive pulmonary disease, unspecified Coding Level of Care Code New Pt Level 4 (53426) Diagnoses Chronic cough R05.3 Hiatal hernia K44.9 Moderate persistent asthma without complication J45.40 Asthma complication type: uncomplicated Asthma persistence: persistent Asthma severity: moderate Pulmonary nodule R91.1 Time Spent (min) 45
== END 2023-10-06 11:33 | disposition home or self-care (01) ==
PROVIDERS: PCP Internal Medicine; Visit Provider Hospitalist
DX: R05.3 Chronic cough (principal); K44.9 Diaphragmatic hernia without obstruction or gangrene; J45.40 Moderate persistent asthma, uncomplicated; R91.1 Solitary pulmonary nodule
CPT/HCPCS: 99204

== ENCOUNTER 2023-11-01 10:47 | Outpatient (REF) | payer MEDICARE, SELFPAY | END 2023-11-01 10:48 | disposition home or self-care (01) | LOC: HO.MAMMO 10:47 | PROVIDERS: PCP Internal Medicine; Visit Provider Internal Medicine | DX: Z12.31 Encounter for screening mammogram for malignant neoplasm of breast (principal) | CPT/HCPCS: 77063; 77067 ==

== ENCOUNTER → 2023-11-01 11:00 | Outpatient (BNV) | payer MEDICARE, SELFPAY | PROVIDERS: PCP Internal Medicine; Visit Provider Radiology Diagnostic Radiology | DX: Z12.31 Encounter for screening mammogram for malignant neoplasm of breast (principal) | CPT/HCPCS: 77063; 77067 ==

== ENCOUNTER 2023-11-16 12:53 | Outpatient (REF) | payer MEDICARE, SELFPAY ==
--- NOTE | 2023-11-16 13:21 | PFT_ITS ---
Spirometry [] FVC 91 %, FEV1 94%, FEV1/FVC RATIO 79 [id number] 104% , AND MVV IS 65% POST BRONCHODILATOR THERAPY NO SIGNIFICANT CHANGES NOTED Lung Volumes [] TOTAL LUNG CAPACITY 93% RESIDUAL VOLUME 104% Diffusion Capacity [] DLCO 60% DL/VA IS 93% Methacholine Challenge [] Flow Volume Loops [] NORMAL PATTERN MVV [] MIP/MEP(Max inspiratory pressure/Max expiratory pressure) [] 6 Minute Walk Test [] ABG [] Interpretation [] NORMAL PULMONARY FUNCTION TEST, NO EVIDENCE OF OBSTRUCTIVE OR RESTRICTIVE PULMONARY DISORDER. MILD TO MODERATE DECREASE IN DLCO IS NOTED BUT DL/VA IS NORMAL . MTDD
== END 2023-11-16 12:54 | disposition home or self-care (01) ==
LOC: HO.RESP 12:53
PROVIDERS: PCP Internal Medicine; Visit Provider Hospitalist
DX: J45.909 Unspecified asthma, uncomplicated (principal)
CPT/HCPCS: 94010; 94727; 94729

== ENCOUNTER → 2023-11-16 13:21 | Outpatient (BNV) | payer MEDICARE, SELFPAY | PROVIDERS: PCP Internal Medicine; Visit Provider Internal Medicine | DX: J45.909 Unspecified asthma, uncomplicated (principal) | CPT/HCPCS: 94060; 94727; 94729 ==

== ENCOUNTER 2023-12-12 10:29 | Outpatient (AMB) | payer MEDICARE, SELFPAY ==
--- NOTE | 2023-12-12 10:35 | A.OFFVIS_ITS ---
Intake Vital Signs 12/12/23 10:37 Height 5 ft Weight 194 lb 0.108 oz BMI 37.9 BP 142/74 H Blood Pressure Location Lt brachial Position Sitting Pulse 67 Pulse Source Pulse Oximeter Pulse Oximetry (%) 97 Oxygen Delivery Method Room Air Intake Visit Reasons: Pulm Nodule Allergies latex [LATEX] Allergy (Unknown, Verified 12/12/23 10:41) UNSURE HPI HPI Comments History of Present Illness Details The patient is an 83 year woman with unremarkable past medical history until back in the spring when she was exposed to sick contacts. After that she started having a cough. She has been evaluated for the cough since . The cough varies usually nonproductive in nature. Moderate severity. She did take a course of prednisone that partially helped the symptoms. In addition to that she has been on albuterol with again partial resolution of the symptoms. As far as her symptoms she had blood work done her D-dimer was elevated back in May and the patient did undergo a CTA. I personally reviewed the CT scan with the patient. She has evidence of bronchitis and also mosaic pattern suggesting air trapping in small airways disease. The patient also had a small pulmonary nodule which of does not appear to be concerning but will need follow-up. In addition to that the patient did have a small to moderate-sized hiatal hernia. On examination the patient does have a prolonged expiratory phase and also post exhalation cough. Definitely has a component of obstructive airway disease. She does have an elevation in the eosinophils suggesting an allergic component as well. Therefore she has multiple reasons to have a cough including a component of asthmatic bronchitis and also has the hiatal hernia. We did talk about reflux diet and will perform a barium swallow. The patient will also get allergy testing and we will optimize her respiratory therapy. 12/12/2023 the patient is here for pulmon nia follow-up visit. Overall the patient is feeling better. She responded very well to the Trelegy inhaler. Although now is about 6 dollars because of her deductible. The patient is waiting to paid off her deductible before she renew use it. She is using her albuterol right now twice a day to help her with her symptoms. She does have episodes of chest tightness and wheezing. Bptz-hd-lvaejtph severity. In addition to that she does have nasal congestion and eczema. The patient did have pulmonary function studies. We personally review the PFTs together. She has no evidence of any obstruction or restriction. Her diffusing capacity slightly decreased. In addition to that she had blood work. 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 The patient also has significant allergies to mold which I am worried about. In addition to that 2 dogs. She has allergies to everything else but just less in degree. She is going to work on minimizing exposures in order to minimize symptoms. In addition to that while she can not afford the Trelegy she can go ahead and start AirDuo through the good Rx program. She knows that she needs to have an inhaled steroid at all times. The patient also complains of the runny nose therefore will send her prescription for ipratropium nasal spray. We did talk about biologic therapy. She was offered Dupixent by her head bookkeeper in the past for her eczema. All those very expensive for her. Will hold off on biologics at this time specially since she is doing better. Will consider biologics if her symptoms worsen and she does not respond to optimal therapy. [facility] Medical History (Updated 10/06/23 @ 13:14 by Indra Joseph MD) Pulmonary nodule Eczema Allergies Asthma Hiatal hernia Chronic cough Social History Patient Tobacco Use Status: Never used Tobacco Review of Systems Const Denies fever(s) Eyes Reports no additional complaints ENT Reports nasal congestion, Reports nasal discharge and Reports post nasal drip Card Reports chest pain Resp Reports cough and Reports wheezing GI Reports no additional complaints Musc Reports no additional complaints Skin/Breast Reports rash Neuro Reports no additional complaints Mike/Lymph Denies easy bruising Aller/Immun Reports wheezing Physical Exam Vital Signs: Last Vital Signs Pulse 67 12/12/23 10:37 BP 142/74 H 12/12/23 10:37 Pulse Ox 97 12/12/23 10:37 Oxygen Delivery Method Room Air 12/12/23 10:37 BMI result Body Mass Index 37.9 Const General: comfortable HEENT Head: Yes normocephalic Neck Neck: Yes supple Chest Chest palpation & inspection: normal inspection of the chest Resp Effort & Inspection: normal respiratory effort Cardio Heart sounds: S1 normal heart sound present and S2 normal heart sound present GI Palpation (GI): Soft to palpation Skin General skin exam: no rashes or lesions noted Extrem General: Yes no clubbing, cyanosis or edema Assessment & Plan Assessment & Plan (1) Chronic cough: Code(s): R05.3 - Chronic cough (2) Hiatal hernia: Code(s): K44.9 - Diaphragmatic hernia without obstruction or gangrene (3) Asthma: Code(s): J45.909 - Unspecified asthma, uncomplicated Qualifiers: Asthma complication type: uncomplicated Asthma persistence: persistent Asthma severity: moderate Qualified Code(s): J45.40 - Moderate persistent asthma, uncomplicated (4) Pulmonary nodule: Code(s): R91.1 - Solitary pulmonary nodule Plan continue [facility], hi to use Airduo in the meantime SERGIO as needed Avoidance of allergens (mold, dogs) Barium swallow reflux diet sleep elevated ipratropium nasal spray as needed CT chest 05/2024 F/U 6 months Medications: New fluticasone propion-salmeterol 232-14 mcg/actuation (AirDuo RespiClick) 1 inh inhalation Q12H 30 days 1 ea 11RF ipratropium bromide administer into each nostril 2 sprays intranasal TID PRN 15 mL 6RF allergy symptoms Coding Level of Care Code Est Pt Level 4 (36218) Diagnoses Chronic cough R05.3 Hiatal hernia K44.9 Moderate persistent asthma without complication J45.40 Asthma complication type: uncomplicated Asthma persistence: persistent Asthma severity: moderate Pulmonary nodule R91.1 Time Spent (min) 18
[2023-12-12 10:37] VITALS: BP 142/74; PULSE 67; O2SAT 97; BMI 37.9
== END 2023-12-12 11:09 | disposition home or self-care (01) ==
PROVIDERS: PCP Internal Medicine; Visit Provider Hospitalist
DX: R05.3 Chronic cough (principal); K44.9 Diaphragmatic hernia without obstruction or gangrene; J45.40 Moderate persistent asthma, uncomplicated; R91.1 Solitary pulmonary nodule
CPT/HCPCS: 99214

== ENCOUNTER → 2023-12-12 10:29 | Outpatient (BNVA) | payer MEDICARE, SELFPAY | PROVIDERS: PCP Internal Medicine; Visit Provider Hospitalist | DX: R91.1 Solitary pulmonary nodule (principal); J45.40 Moderate persistent asthma, uncomplicated; R05.3 Chronic cough; K44.9 Diaphragmatic hernia without obstruction or gangrene; Z79.899 Other long term (current) drug therapy | CPT/HCPCS: 99212 ==

== ENCOUNTER 2024-02-07 09:00 | Outpatient (REF) | payer MEDICARE, SELFPAY ==
[2024-02-07 11:25] LABS: MANUAL DIFF FLAG NO
[2024-02-07 11:36] LABS: Basophils Absolute Auto 0.1 X10*3/uL (0.0-0.2); Basophils Percent Auto 0.8 % (0-2); Eosinophils Absolute Auto 0.4 X10*3/uL (0.0-0.4); Eosinophils Percent Auto 5.9 % (0-4); Hematocrit 35.4 % (37.0-47.0); Hemoglobin 11.6 g/dl (12.0-16.0); Imm Gran Abs Auto 0.05 X10*3/uL (0.00-0.03); Imm Gran Pct Auto 0.8 % (0.0-0.4); Lymphocytes Absolute Auto 1.9 X10*3/uL (1.2-4.9); Lymphocytes Percent Auto 29.1 % (20-40); Mean Corpuscular HGB Conc 32.8 g/dl (31.0-35.0); Mean Corpuscular Hemoglobin 30.1 pg (27.0-33.0); Mean Corpuscular Volume 91.7 fL (80.0-98.0); Mean Platelet Volume 9.6 fL (9.4-12.3); Monocytes Absolute Auto 0.5 X10*3/uL (0.1-1.2); Monocytes Percent Auto 6.8 % (2-11); Neutrophils Absolute Auto 3.8 x10*3/uL (2.0-8.3); Neutrophils Percent Auto 56.6 % (45-73); Platelet Count 296 X10*3/uL (160-400); Red Blood Count 3.86 X10*6/uL (4.20-5.50); Red Cell Distribution Width 14.3 % (11.0-16.0); White Blood Count 6.6 X10*3/uL (4.8-10.8)
[2024-02-07 11:49] LABS: Cholesterol 120 mg/dL (<200); HDL Cholesterol 27 mg/dL (>40); LDL Cholesterol Calculated 63 mg/dL (<100); Triglycerides 153 mg/dL (<150)
[2024-02-07 11:50] LABS: Alanine Aminotransferase 21 U/L (0-31); Albumin Level 4.1 g/dL (3.5-5.0); Alkaline Phosphatase 65 U/L (39-117); Anion Gap 11 (12-20); Aspartate Amino Transferase 23 U/L (5-31); Bilirubin Total 1.1 mg/dL (0.0-1.0); Blood Urea Nitrogen 12 mg/dL (9-16); Carbon Dioxide 25 mmol/L (22-29); Chloride 111 mmol/L (96-108); Estimated Glomerular Filt Rate > 60; Glucose Random 128 mg/dL (60-115); Sodium 143 mmol/L (135-145); Total Protein 6.8 g/dL (6.5-8.0)
== END 2024-02-07 09:01 | disposition home or self-care (01) ==
LOC: HO.HMGCLDS 09:00
PROVIDERS: PCP Internal Medicine; Referring Provider Nurse Practitioner; Visit Provider Internal Medicine
DX: I10 Essential (primary) hypertension (principal); K21.9 Gastro-esophageal reflux disease without esophagitis; R79.89 Other specified abnormal findings of blood chemistry
CPT/HCPCS: 36415; 80053; 80061; 85025

== ENCOUNTER 2024-03-01 10:29 | Outpatient (REF) | payer MEDICARE, SELFPAY ==
[2024-03-01 14:09] LABS: Anion Gap 13 (12-20); Blood Urea Nitrogen 16 mg/dL (9-16); Calcium 9.5 mg/dL (8.4-10.2); Carbon Dioxide 26 mmol/L (22-29); Chloride 107 mmol/L (96-108); Estimated Glomerular Filt Rate > 60; Glucose Random 121 mg/dL (60-115); Potassium 4.1 mmol/L (3.3-5.1); Sodium 142 mmol/L (135-145)
== END 2024-03-01 10:30 | disposition home or self-care (01) ==
LOC: HO.HMGCLDS 10:29
PROVIDERS: PCP Internal Medicine; Visit Provider Nurse Practitioner
DX: I25.10 Atherosclerotic heart disease of native coronary artery without angina pectoris (principal)
CPT/HCPCS: 36415; 80048

== ENCOUNTER 2024-06-12 11:12 | Outpatient (AMB) | payer MEDICARE, SELFPAY ==
--- NOTE | 2024-06-12 11:32 | A.OFFVIS_ITS ---
Vital Signs 06/12/24 11:33 Height 5 ft Weight 194 lb 0.108 oz BMI 37.9 Pulse 78 Pulse Source Pulse Oximeter Pulse Oximetry (%) 98 Oxygen Delivery Method Room Air Intake Visit Reasons: Pulm Nodule Equipment Operator Warehouse Required: No Allergies latex [LATEX] Allergy (Unknown, Verified 06/12/24 11:35) UNSURE HPI Comments Details: The patient is an 84 year woman with unremarkable past medical history until back in the spring when she was exposed to sick contacts. After that she started having a cough. She has been evaluated for the cough since then. The cough varies usually nonproductive in nature. Moderate severity. She did take a course of prednisone that partially helped the symptoms. In addition to that she has been on albuterol with again partial resolution of the symptoms. As far as her symptoms she had blood work done her D-dimer was elevated back in May and the patient did undergo a CTA. I personally reviewed the CT scan with the patient. She has evidence of bronchitis and also mosaic pattern suggesting air trapping in small airways disease. The patient also had a small pulmonary nodule which of does not appear to be concerning but will need follow-up. In addition to that the patient did have a small to moderate-sized hiatal hernia. On examination the patient does have a prolonged expiratory phase and also post exhalation cough. Definitely has a component of obstructive airway disease. She does have an elevation in the eosinophils suggesting an allergic component as well. Therefore she has multiple reasons to have a cough including a comp onent of asthmatic bronchitis and also has the hiatal hernia. We did talk about reflux diet and will perform a barium swallow. The patient will also get allergy testing and we will optimize her respiratory therapy. 12/12/2023 the patient is here for pulmonary follow-up visit. Overall the patient is feeling better. She responded very well to the Trelegy inhaler. Although now is about 6 dollars because of her deductible. The patient is waiting to paid off her deductible before she renew use it. She is using her albuterol right now twice a day to help her with her symptoms. She does have episodes of chest tightness and wheezing. Owcy-hf-nfkpolbx severity. In addition to that she does have nasal congestion and eczema. The patient did have pulmonary function studies. We personally review the PFTs together. She has no evidence of any obstruction or restriction. Her diffusing capacity slightly decreased. In addition to that she had blood work. 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 The patient also has significant allergies to mold which I am worried about. In addition to that 2 dogs. She has allergies to everything else but just less in degree. She is going to work on minimizing exposures in order to minimize symptoms. In addition to that while she can not afford the Trelegy she can go ahead and start AirDuo through the good Rx program. She knows that she needs to have an inhaled steroid at all times. The patient also complains of the runny nose therefore will send her prescription for ipratropium nasal spray. We did talk about biologic therapy. She was offered Dupixent by her sheep sticker in the past for her eczema. All those very expensive for her. Will hold off on biologics at this time specially since she is doing better. Will consider biologics if her symptoms worsen and she does not respond to optimal therapy. 06/12/2024 the patient is here for a pulmonary follow-up visit. Overall the patient has not feeling better. She is using the AirDuo as prescribed. It is a lot more financially reasonable for her and is also affecting beneficial. She does use it twice a day. She knows to rinse her mouth. She has not had to use her rescue inhaler. She is monitoring closely her diet. The patient needs to continue reflux diet. We did review her CT scan of the chest demonstrating a moderate large hiatal hernia. She was call to have a barium swallow she has not had it as of yet. She understands that barium swallow helpful least to look at the mucosa make sure no abnormalities. Otherwise she can talk to her primary care doctor about a GI referral. The patient also had a pulmonary nodule. 4 mm in size. She should have a follow-up CT scan. Although currently she is reluctant to have any test. The patient does have a knee surgery in the near future. Therefore, will postpone her CT scan till next year. If however she develops any worsening respiratory symptoms or any concerning constitutional symptoms she can always call and we can readdress this at earlier time. [facility] Medical History (Updated 10/06/23 @ 13:14 by Indra Joseph MD) Pulmonary nodule Eczema Allergies Asthma Hiatal hernia Chronic cough Social History Patient Tobacco Use Status: Never used Tobacco Review of Systems Const Denies fever(s) Eyes Reports no additional complaints ENT Reports nasal congestion, Reports nasal discharge and Reports post nasal drip Card Denies chest pain Resp Reports cough and Reports wheezing GI Reports dyspepsia and Reports heartburn Musc Reports no additional complaints Skin/Breast Reports rash Neuro Reports no additional complaints Mike/Lymph Denies easy bruising Aller/Immun Reports wheezing Physical Exam Vital Signs: Last Vital Signs Pulse 78 06/12/24 11:33 Pulse Ox 98 06/12/24 11:33 Oxygen Delivery Method Room Air 06/12/24 11:33 BMI result Body Mass Index 37.9 Const General: comfortable HEENT Head: Yes normocephalic Neck Neck: Yes supple Chest Chest palpation & inspection: normal inspection of the chest Resp Effort & Inspection: normal respiratory effort Auscultation: diminished lung sounds Cardio Heart sounds: S1 normal heart sound present and S2 normal heart sound present GI Palpation (GI): Soft to palpation Skin General skin exam: no rashes or lesions noted Extrem General: Yes no clubbing, cyanosis or edema Results Reviewed Results Reviewed: [address] [address] [address] Scan Report Signed Patient: Julita Pimentel MR#: [id number] : 1940 Acct:[id number] Age/Sex: 83 / F ADM Date: 06/07/23 Loc: .ED Attending Dr: Ordering Physician: Iliana Hall NP Date of Service: 06/07/23 Procedure(s): CT angio chest PE protocol Accession Number(s): [id number] cc: Iliana Hall NP~ EXAMINATION: CT ANGIOGRAM OF THE CHEST WITH AND WITHOUT CONTRAST (CT PULMONARY ANGIOGRAM FOR PE) CLINICAL INFORMATION: Reason for Exam elevated d dimer COMPARISON: Chest x-ray from the same day TECHNIQUE: Prior to contrast administration, noncontrast localization images were obtained. Subsequently, multidetector volumetric imaging was performed from the thoracic inlet to below the diaphragms following the administration of 65 mL Omnipaque 350 intravenous contrast. No contrast reaction reported Sagittal, coronal, and MIP oblique sagittal reformatted images were obtained on the CT workstation, uploaded to PACS, and reviewed. This CT examination was performed using dose optimization techniques as appropriate, variously including the following: *Automated exposure control *Adjustment of mA and/or kV according to patient size (this includes techniques or standardized protocols for targeted exams where dose is matched to indication/reason for exam; i.e. extremities or head) *Use of iterative reconstruction technique Total exam dose-length product 378 mGy-cm FINDINGS: QUALITY OF STUDY/CONTRAST BOLUS: Satisfactory. PULMONARY ARTERIES: No central or proximal segmental pulmonary embolus is seen. However, there is significantly limited evaluation of the more distal vasculature due to respiratory motion artifact. THORACIC AORTA: No aneurysm. Moderate atherosclerotic calcification. LUNG: Limited detailed evaluation due to respiratory motion artifact. No regions of consolidation. There is a 4 mm superior left lower lobe nodule on image 119/509. PLEURA: No pneumothorax or pleural effusion. MEDIASTINUM: Visualized thyroid gland is grossly unremarkable. Small hiatal hernia is present. There are subcentimeter mediastinal lymph nodes within the range of normal variation. Cardiac size is within normal limits; no pericardial effusion. CORONARY ARTERY CALCIFICATION: Present CHEST WALL/AXILLA: No axillary or internal mammary lymphadenopathy. OSSEOUS STRUCTURES: Degenerative changes are noted in the spine. UPPER ABDOMEN: Unremarkable. No reflux of contrast into the hepatic veins to suggest elevated right heart pressures. CT/CT angio chest PE protocol IMPRESSION: 1. No central or proximal segmental pulmonary embolus identified. However, evaluation of the more distal vasculature is significantly limited due to respiratory motion artifact. 2. Left lower lobe 4 mm lung nodule, nonspecific. According to the UPDATED 2017 Fleischner Society recommendations, the advised follow-up imaging for solid nodules < 6 mm is: LOW RISK PATIENT: No routine follow-up. HIGH RISK PATIENT: Optional CT at 12 months. VTE: negative. Dictated By: Trae Gordon MD Signed By: <Electronically signed by Trae Gordon MD in OV> 06/07/23 4762 DD/ 283 TD/TT: Cloth Piecer: JOSE Assessment & Plan Assessment & Plan (1) Asthma: Code(s): J45.909 - Unspecified asthma, uncomplicated Category: Medical Qualifiers: Asthma complication type: uncomplicated Asthma persistence: persistent Asthma severity: moderate Qualified Code(s): J45.40 - Moderate persistent asthma, uncomplicated (2) Chronic cough: Code(s): R05.3 - Chronic cough Category: Medical (3) Hiatal hernia: Code(s): K44.9 - Diaphragmatic hernia without obstruction or gangrene Category: Medical (4) Pulmonary nodule: Code(s): R91.1 - Solitary pulmonary nodule Category: Medical Plan continue Trelegy, ok to use Airduo in the meantime SERGIO as needed Avoidance of allergens (mold, dogs) Barium swallow reflux diet sleep elevated ipratropium nasal spray as needed CT chest 04/2025 F/U 10-12 months Orders: Orders CT chest wo IV con 04/28/25 R91.1 - Solitary pulmonary nodule Coding Level of Care Code Est Pt Level 4 (20793) Diagnoses Moderate persistent asthma without complication J45.40 Asthma complication type: uncomplicated Asthma persistence: persistent Asthma severity: moderate Chronic cough R05.3 Hiatal hernia K44.9 Pulmonary nodule R91.1 Time Spent (min) 17
[2024-06-12 11:33] VITALS: PULSE 78; O2SAT 98; BMI 37.9
== END 2024-06-12 11:52 | disposition home or self-care (01) ==
PROVIDERS: PCP Internal Medicine; Visit Provider Hospitalist
DX: J45.40 Moderate persistent asthma, uncomplicated (principal); R05.3 Chronic cough; K44.9 Diaphragmatic hernia without obstruction or gangrene; R91.1 Solitary pulmonary nodule
CPT/HCPCS: 99214

== ENCOUNTER → 2024-06-12 11:12 | Outpatient (BNVA) | payer MEDICARE, SELFPAY | PROVIDERS: PCP Internal Medicine; Visit Provider Hospitalist | DX: J45.40 Moderate persistent asthma, uncomplicated (principal); R05.3 Chronic cough; K44.9 Diaphragmatic hernia without obstruction or gangrene; R91.1 Solitary pulmonary nodule | CPT/HCPCS: 99212 ==

== ENCOUNTER 2024-08-30 08:56 | Outpatient (AMB) | payer MEDICARE, SELFPAY ==
[2024-08-30 09:09] VITALS: BP 142/70; PULSE 87; O2SAT 98; BMI 37.2
--- NOTE | 2024-08-30 09:09 | A.OFFVIS_ITS ---
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 After that she started having a cough. She has been evaluated for the cough since then. The cough varies usually nonproductive in nature. Moderate severity. She did take a course of prednisone that partially helped the symptoms. In addition to that she has been on albuterol with again partial resolution of the symptoms. As far as her symptoms she had blood work done her D-dimer was elevated back in May and the patient did undergo a CTA. I personally reviewed the CT scan with the patient. She has evidence of bronchitis and also mosaic pattern suggesting air trapping in small airways disease. The patient also had a small pulmonary nodule which of does not appear to be concerning but will need follow-up. In addition to that the patient did have a small to moderate-sized hiatal hernia. On examination the patient does have a prolonged expiratory phase and also post exhalation cough. Definitely has a component of obstructive airway disease. S he does have an elevation in the eosinophils suggesting an allergic component as well. Therefore she has multiple reasons to have a cough including a component of asthmatic bronchitis and also has the hiatal hernia. We did talk about reflux diet and will perform a barium swallow. The patient will also get allergy testing and we will optimize her respiratory therapy. 12/12/2023 the patient is here for pulmonary follow-up visit. Overall the patient is feeling better. She responded very well to the Trelegy inhaler. Although now is about 6 dollars because of her deductible. The patient is w aiting to paid off her deductible before she renew use it. She is using her albuterol right now twice a day to help her with her symptoms. She does have episodes of chest tightness and wheezing. Sxcu-ek-hcdwxyzj severity. In addition to that she does have nasal congestion and eczema. The patient did have pulmonary function studies. We personally review the PFTs together. She has no evidence of any obstruction or restriction. Her diffusing capacity slightly decreased. In addition to that she had blood work. 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 The patient also has significant allergies to mold which I am worried about. In addition to that 2 dogs. She has allergies to everything else but just less in degree. She is going to work on minimizing exposures in order to minimize symptoms. In addition to that while she can not afford the Trelegy she can go ahead and start AirDuo through the good Rx program. She knows that she needs to have an inhaled steroid at all times. The patient also complains of the runny nose therefore will send her prescription for ipratropium nasal spray. We did talk about biologic therapy. She was offered Dupixent by her belt maker in the past for her eczema. All those very expensive for her. Will hold off on biologics at this time specially since she is doing better. Will consider biologics if her symptoms worsen and she does not respond to optimal therapy. 06/12/2024 the patient is here for a pulmonary follow-up visit. Overall the patient has not feeling better. She is using the AirDuo as prescribed. It is a lot more financially reasonable for her and is also affecting beneficial. She does use it twice a day. She knows to rinse her mouth. She has not had to use her rescue inhaler. She is monitoring closely her diet. The patient needs to continue reflux diet. We did review her CT scan of the chest demonstrating a moderate large hiatal hernia. She was call to have a barium swallow she has not had it as of yet. She understands that barium swallow helpful least to look at the mucosa make sure no abnormalities. Otherwise she can talk to her primary care doctor about a GI referral. The patient also had a pulmonary nodule. 4 mm in size. She should have a follow-up CT scan. Although currently she is reluctant to have any test. The patient does have a knee surgery in the near future. Therefore, will postpone her CT scan till next year. If however she develops any worsening respiratory symptoms or any concerning constitutional symptoms she can always call and we can readdress this at earlier time. 08/30/2024 the patient is here for sick visit. The patient has had worsening respiratory symptoms. She has had chest congestion and wheezing now for about 3-4 weeks. She tested negative for COVID. She has not seen significant improvement with her inhaler therapy. In addition to that we did look at her blood work. She has significant allergies with an elevated IgE level and an elevated eosinophil level. The patient likely has severe persistent asthmatic bronchitis. Therefore, based on the fact that she has failed maximum respiratory therapy she will benefit from biologic therapy with Dupixent. We will give her some information start the process to see about getting it approved. In the meantime we are going to treat her for an asthma exacerbation with antibiotics. She does have some crackles at the left base therefore, need to consider bronchopneumonia. [facility] Medical History (Updated 08/30/24 @ 09:24 by Indra Joseph MD) Bronchopneumonia Pulmonary nodule Eczema Allergies Asthma Hiatal hernia Chronic cough Social History Patient Tobacco Use Status: Never used Tobacco Review of Systems Const Denies fever(s) Eyes Reports no additional complaints ENT Reports nasal congestion, Reports nasal discharge and Reports post nasal drip Card Denies chest pain Resp Reports cough and Reports wheezing GI Reports dyspepsia and Reports heartburn Musc Reports no additional complaints Skin/Breast Reports rash Neuro Reports no additional complaints Mike/Lymph Denies easy bruising Aller/Immun Reports wheezing Physical Exam Vital Signs: Last Vital Signs Pulse 87 08/30/24 09:09 BP 142/70 H 08/30/24 09:09 Pulse Ox 98 08/30/24 09:09 Oxygen Delivery Method Room Air 08/30/24 09:09 BMI result Body Mass Index 37.2 Const General: comfortable HEENT Head: Yes normocephalic Neck Neck: Yes supple Chest Chest palpation & inspection: normal inspection of the chest Resp Effort & Inspection: normal respiratory effort Auscultation: diminished lung sounds Cardio Heart sounds: S1 normal heart sound present and S2 normal heart sound present GI Palpation (GI): Soft to palpation Skin General skin exam: no rashes or lesions noted Extrem General: Yes no clubbing, cyanosis or edema Assessment & Plan Assessment & Plan (1) Asthma: Code(s): J45.909 - Unspecified asthma, uncomplicated Category: Medical Qualifiers: Asthma complication type: uncomplicated Asthma persistence: persistent Asthma severity: moderate Qualified Code(s): J45.40 - Moderate persistent asthma, uncomplicated (2) Chronic cough: Code(s): R05.3 - Chronic cough Category: Medical (3) Hiatal hernia: Code(s): K44.9 - Diaphragmatic hernia without obstruction or gangrene Category: Medical (4) Pulmonary nodule: Code(s): R91.1 - Solitary pulmonary nodule Category: Medical (5) Bronchopneumonia: Code(s): J18.0 - Bronchopneumonia, unspecified organism Category: Medical Plan start Prednisone taper start Augmentin continue Trelegy SERGIO as needed Avoidance of allergens (mold, dogs) start Dupixent for severe asthma Barium swallow reflux diet sleep elevated ipratropium nasal spray as needed CT chest 04/2025 F/U 2-3 months, should call if worsens Medications: New qxxyurtlyto-zbklkfmtm-pqxsxwgj 200-62.5-25 mcg (Trelegy Ellipta) 1 inh inhalation DAILY 60 ea 12RF 30 days amoxicillin-pot clavulanate 875-125 mg 1 tab PO BID 20 tabs 0RF 10 days prednisone PO daily; Take 3 tabs x 3 days, then 2 tabs daily x 3 days, then 1 tab x 3 days to complete. 18 tabs 0RF 9 days codeine-guaifenesin 10-100 mg/5 mL 10 mL PO Q6H PRN 300 mL 0RF cough 10 days Coding Level of Care Code Est Pt Level 4 (43110) Diagnoses Moderate persistent asthma without complication J45.40 Asthma complication type: uncomplicated Asthma persistence: persistent Asthma severity: moderate Chronic cough R05.3 Hiatal hernia K44.9 Pulmonary nodule R91.1 Bronchopneumonia J18.0 Time Spent (min) 17
== END 2024-08-30 09:55 | disposition home or self-care (01) ==
PROVIDERS: PCP Internal Medicine; Visit Provider Hospitalist
DX: J45.40 Moderate persistent asthma, uncomplicated (principal); R05.3 Chronic cough; K44.9 Diaphragmatic hernia without obstruction or gangrene; R91.1 Solitary pulmonary nodule; J18.0 Bronchopneumonia, unspecified organism
CPT/HCPCS: 99214

== ENCOUNTER → 2024-08-30 08:56 | Outpatient (BNVA) | payer MEDICARE, SELFPAY | PROVIDERS: PCP Internal Medicine; Visit Provider Hospitalist | DX: J45.40 Moderate persistent asthma, uncomplicated (principal); J18.0 Bronchopneumonia, unspecified organism; R05.3 Chronic cough; K44.9 Diaphragmatic hernia without obstruction or gangrene; R91.1 Solitary pulmonary nodule | CPT/HCPCS: 99212 ==

== ENCOUNTER 2024-10-16 09:55 | Outpatient (REF) | payer MEDICARE, SELFPAY ==
[2024-10-16 13:17] LABS: Appearance Urine Clear; Color Urine Yellow; Glucose Urine UA Negative (Negative); Leukocyte Esterase Urine Moderate (2+) (Negative); MANUAL DIFF FLAG NO; Nitrite Urine Negative (Negative); PH 5.5 (5.0-9.0); UMIC TRIGGER UA YES; Urine Blood Negative (Negative); Urine Ketones Negative (Negative); Urine Protein Negative (Neg-Trace)
[2024-10-16 13:29] LABS: Basophils Absolute Auto 0.1 X10*3/uL (0.0-0.2); Basophils Percent Auto 1.2 % (0-2); Eosinophils Absolute Auto 1.1 X10*3/uL (0.0-0.4); Eosinophils Percent Auto 14.2 % (0-4); Hematocrit 36.6 % (37.0-47.0); Hemoglobin 12.1 g/dl (12.0-16.0); Imm Gran Abs Auto 0.02 X10*3/uL (0.00-0.03); Imm Gran Pct Auto 0.3 % (0.0-0.4); Lymphocytes Absolute Auto 1.7 X10*3/uL (1.2-4.9); Lymphocytes Percent Auto 22.6 % (20-40); Mean Corpuscular HGB Conc 33.1 g/dl (31.0-35.0); Mean Corpuscular Hemoglobin 30.2 pg (27.0-33.0); Mean Corpuscular Volume 91.3 fL (80.0-98.0); Mean Platelet Volume 9.4 fL (9.4-12.3); Monocytes Absolute Auto 0.5 X10*3/uL (0.1-1.2); Monocytes Percent Auto 6.8 % (2-11); Neutrophils Absolute Auto 4.1 x10*3/uL (2.0-8.3); Neutrophils Percent Auto 54.9 % (45-73); Platelet Count 293 X10*3/uL (160-400); Red Blood Count 4.01 X10*6/uL (4.20-5.50); Red Cell Distribution Width 13.5 % (11.0-16.0); White Blood Count 7.4 X10*3/uL (4.8-10.8)
[2024-10-16 13:33] LABS: Bacteria Urine Trace (None Seen); Hyaline Casts Urine 0-2 /LPF (0-2); RBC Urine 0-2 /HPF (0-2)
[2024-10-16 13:41] LABS: Estimated Average Glucose 137 mg/dL; Hemoglobin A1C 150.8574 umol/L; Hemoglobin A1c % 6.4 % (<6.0); Total Hemoglobin (HGBA1C) 3262.5765 umol/L
[2024-10-16 13:57] LABS: Creatinine Urine 67.56 mg/dL; Microalbum/Creatinine Ratio Ur 17.7 ug/mg cr (<30)
[2024-10-16 13:58] LABS: Alanine Aminotransferase 29 U/L (0-31); Albumin Level 4.4 g/dL (3.5-5.0); Alkaline Phosphatase 68 U/L (39-117); Anion Gap 10 (12-20); Aspartate Amino Transferase 32 U/L (5-31); Bilirubin Total 1.8 mg/dL (0.0-1.0); Blood Urea Nitrogen 14 mg/dL (9-16); Calcium 9.2 mg/dL (8.4-10.2); Carbon Dioxide 27 mmol/L (22-29); Chloride 108 mmol/L (96-108); Cholesterol 166 mg/dL (<200); Estimated Glomerular Filt Rate > 60; Glucose Fasting 123 mg/dL (60-99); HDL Cholesterol 40 mg/dL (>40); Iron 69 mcg/dL (30-160); LDL Cholesterol Calculated 90 mg/dL (<100); Percent Iron Saturation 17 % (15-50); Sodium 141 mmol/L (135-145); Total Iron Binding Capacity 407 mcg/dL (228-428); Total Protein 7.2 g/dL (6.5-8.0); Triglycerides 180 mg/dL (<150); Unsaturated Iron Binding 338 ug/dL
[2024-10-16 14:27] LABS: Vitamin D 25-OH Total 29.1 ng/mL (>30)
== END 2024-10-16 09:56 | disposition home or self-care (01) ==
LOC: HO.HMGCLDS 09:55
PROVIDERS: PCP Internal Medicine; Visit Provider Internal Medicine
DX: Z13.89 Encounter for screening for other disorder (principal)
CPT/HCPCS: 36415; 80053; 80061; 81001; 82043; 82306; 82570; 83036; 83540; 85025

== ENCOUNTER 2024-12-10 10:43 | Outpatient (AMB) | payer MEDICARE, SELFPAY ==
[2024-12-10 10:46] VITALS: BP 148/72; PULSE 83; O2SAT 98; BMI 37.7
--- NOTE | 2024-12-10 10:46 | A.OFFVIS_ITS ---
Vital Signs 12/10/24 10:46 Height 5 ft Weight 192 lb 14.472 oz BMI 37.7 BP 148/72 H Blood Pressure Location Rt brachial Position Sitting Pulse 83 Pulse Source Pulse Oximeter Pulse Oximetry (%) 98 Oxygen Delivery Method Room Air Intake Visit Reasons: Asthma Allergies latex [LATEX] Allergy (Unknown, Verified 12/10/24 10:51) UNSURE HPI Comments Details: The patient is an 84 year woman with unremarkable past medical history until back in the spring when she was exposed to sick contacts. After that she started having a cough. She has been evaluated for the cough since then. The cough varies usually nonproductive in nature. Moderate severity. She did take a course of prednisone that partially helped the symptoms. In addition to that she has been on albuterol with again partial resolution of the symptoms. As far as her symptoms she had blood work done her D-dimer was elevated back in May and the patient did undergo a CTA. I personally reviewed the CT scan with the patient. She has evidence of bronchitis and also mosaic pattern suggesting air trapping in small airways disease. The patient also had a small pulmonary nodule which of does not appear to be concerning but will need follow-up. In addition to that the patient did have a small to moderate-sized hiatal hernia. On examination the patient does have a prolonged expiratory phase and also post exhalation cough. Definitely has a component of obstructive airway disease. She does have an elevation in the eosinophils suggesting an allergic component as well. Therefore she has multiple reasons to have a cough including a component of asthmatic bronchitis and also has the hiatal hernia. We did talk about reflux diet and will perform a barium swallow. The patient will also get allergy testing and we will optimize her respiratory therapy. 12/12/2023 the patient is here for pulmonary follow-up visit. Overall the patient is feeling better. She responded very well to the Trelegy inhaler. Although now is about 6 dollars because of her deductible. The patient is waiting to paid off her deductible before she renew use it. She is using her albuterol right now twice a day to help her with her symptoms. She does have episodes of chest tightness and wheezing. Nrze-cn-noayrlza severity. In addition to that she does have nasal congestion and eczema. The patient did have pulmonary function studies. We personally review the PFTs together. She has no evidence of any obstruction or restriction. Her diffusing capacity slightly decreased. In addition to that she had blood work. 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 The patient also has significant allergies to mold which I am worried about. In addition to that 2 dogs. She has allergies to everything else but just less in degree. She is going to work on minimizing exposures in order to minimize symptoms. In addition to that while she can not afford the Trelegy she can go ahead and start AirDuo through the good Rx program. She knows that she needs to have an inhaled steroid at all times. The patient also complains of the runny nose therefore will send her prescription for ipratropium nasal spray. We did talk about biologic therapy. 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 All those very expensive for her. Will hold off on biologics at this time specially since she is doing better. Will consider biologics if her symptoms worsen and she does not respond to optimal therapy. 06/12/2024 the patient is here for a pulmonary follow-up visit. Overall the patient has not feeling better. She is using the AirDuo as prescribed. It is a lot more financially reasonable for her and is also affecting beneficial. She does use it twice a day. She knows to rinse her mouth. She has not had to use her rescue inhaler. She is monitoring closely her diet. The patient needs to continue reflux diet. We did review her CT scan of the chest demonstrating a moderate large hiatal hernia. She was call to have a barium swallow she has not had it as of yet. She understands that barium swallow helpful least to look at the mucosa make sure no abnormalities. Otherwise she can talk to her primary care doctor about a GI referral. The patient also had a pulmonary nodule. 4 mm in size. She should have a follow-up CT scan. Although currently she is reluctant to have any test. The patient does have a knee surgery in the near future. Therefore, will postpone her CT scan till next year. If however she develops any worsening respiratory symptoms or any concerning constitutional symptoms she can always call and we can readdress this at earlier time. 08/30/2024 the patient is here for sick visit. The patient has had worsening respiratory symptoms. She has had chest congestion and wheezing now for about 3-4 weeks. She tested negative for COVID. She has not seen significant improvement with her inhaler therapy. In addition to that we did look at her blood work. She has significant allergies with an elevated IgE level and an elevated eosinophil level. The patient likely has severe persistent asthmatic bronchitis. Therefore, based on the fact that she has failed maximum respiratory therapy she will benefit from biologic therapy with Dupixent. We will give her some information start the process to see about getting it approved. In the meantime we are going to treat her for an asthma exacerbation with antibiotics. She does have some crackles at the left base therefore, need to consider bronchopneumonia. 12/10/2024 the patient is here for pulmonary follow-up visit. Overall she is better. She was sick back in August. She did get prednisone Augmentin. Her symptoms improved after 3 days. She has significant allergies. We did review imaging study. She did have a CT scan back in 2022 demonstrating a 4 mm pulmonary nodule. Positive family history of lung cancer in the family. Will go ahead and request a repeat CT scan to make sure the nodule is not progressing size. The patient does have significant allergies. Specially to mold. Right now clinically she is doing well we can hold off on biologics. I did give her the allergy testing that she had in the past so she can try to avoid her s ignificant allergies. She will follow-up in the fall. She has not issues prior to that she will call for an earlier assessment. [facility] Medical History (Updated 12/10/24 @ 22:24 by Indra Joseph MD) Bronchopneumonia Pulmonary nodule Eczema Allergies Asthma Hiatal hernia Chronic cough Social History Patient Tobacco Use Status: Never used Tobacco Review of Systems Const Denies fever(s) Eyes Reports no additional complaints ENT Reports nasal congestion, Reports nasal discharge and Reports post nasal drip Card Denies chest pain Resp Reports cough and Reports wheezing GI Reports dyspepsia and Reports heartburn Musc Reports no additional complaints Skin/Breast Reports rash Neuro Reports no additional complaints Mike/Lymph Denies easy bruising Aller/Immun Reports wheezing Physical Exam Vital Signs: Last Vital Signs Pulse 83 12/10/24 10:46 BP 148/72 H 12/10/24 10:46 Pulse Ox 98 12/10/24 10:46 Oxygen Delivery Method Room Air 12/10/24 10:46 BMI result Body Mass Index 37.7 Const General: comfortable HEENT Head: Yes normocephalic Neck Neck: Yes supple Chest Chest palpation & inspection: normal inspection of the chest Resp Effort & Inspection: normal respiratory effort Auscultation: diminished lung sounds Cardio Heart sounds: S1 normal heart sound present and S2 normal heart sound present GI Palpation (GI): Soft to palpation Skin General skin exam: no rashes or lesions noted Extrem General: Yes no clubbing, cyanosis or edema Assessment & Plan Assessment & Plan (1) Asthma: Code(s): J45.909 - Unspecified asthma, uncomplicated Category: Medical Qualifiers: Asthma complication type: uncomplicated Asthma persistence: persistent Asthma severity: severe Qualified Code(s): J45.50 - Severe persistent asthma, uncomplicated (2) Chronic cough: Code(s): R05.3 - Chronic cough Category: Medical (3) Hiatal hernia: Code(s): K44.9 - Diaphragmatic hernia without obstruction or gangrene Category: Medical (4) Pulmonary nodule: Code(s): R91.1 - Solitary pulmonary nodule Category: Medical Plan continue Trelegy SERGIO as needed Avoidance of allergens (mold, dogs) Dupixent for severe asthma Barium swallow reflux diet sleep elevated ipratropium nasal spray as needed CT chest F/U 6-8 months, should call if worsens Orders: Orders CT chest wo IV con Today R91.1 - Solitary pulmonary nodule Coding Level of Care Code Est Pt Level 4 (77150) Diagnoses Severe persistent asthma without complication J45.50 Asthma complication type: uncomplicated Asthma persistence: persistent Asthma severity: severe Chronic cough R05.3 Hiatal hernia K44.9 Pulmonary nodule R91.1 Time Spent (min) 16
--- OUTSIDE RECORDS SUMMARY | 2024-12-10 12:32 | XMS_ITS ---
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 Name Role Phone Maximo Vines MD Primary Care Provider Yanely Dyer [phone] REASON FOR VISIT Red, painful toe Medications Medication SIG (Take, Route, Fr equency, Duration) Notes Start Date End Date Status Augmentin 500-125 MG 1 tablet Orally Twi ce a day for 7 days 02/12/2019 Active Encounters Encounter Location Date Provider Diagnosis [facility] [address] [address] 09/20/2024 Yanely Saúlfausto Cellulitis of right toe L03.031 Assessments Encounter Date Diagnosis (ICD Code) Assessment Notes Treatment Notes Treatment Clinical Notes Section Notes 09/20/2024 Cellulitis of right toe (ICD-10 - L03.031) Plan Of Treatment Medication Medication Name Sig Start Date Stop Date Notes Augmentin 500-125 MG 1 tablet Orally Twi ce a day for 7 days 02/12/2019 Next Appt Details Provider Name:Yanely Castillo Peric a, 01/24/2025 10:00:00 AM, [address] [place] [address], [phone], Provider Name:Yanely Castillo Peric a, 04/01/2025 11:30:00 AM, [address] [place] [address], [phone], Progress Notes * Julita PIMENTEL MDOB:[birth year] (84 yo F)Acc No.[id number]:09/20/2024 Patient:?Julita Pimentel :1940???Age:84 Y???Sex:Female Address:[address] [place] [address], [place] [address] * Refills? Refill Augmentin Tablet, 500-125 MG, Orally, 14 Tablet, 1 tablet, Twice a day, 7 days, Refills=0 * true * Date:? Generated for Terry garcia/Mini/eTransmitting on:?12/10/2024 12:31 PM EST
--- OUTSIDE RECORDS SUMMARY | 2024-12-10 12:32 | XMS_ITS | Data Portability ---
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 She was scheduled for total knee arthroplasty. Surgery was canceled I believe associated with elevated blood pressure. Reports she has been back to cardiology. They did not alter her medications. Patient apparently has some fairly profound whitecoat hypertension. Patient has had a positive stress test in the past. She was not stented at that time. She has not been stented in the last year. There was some discussion about her undergoing a repeat nuclear stress test. Previous corticosteroid has not been helpful. She is not walking with a cane or assistive device. She reports increased functional limitation. She is dissatisfied with her overall level of pain control. Past family, medical, social history and review of systems has been reviewed, updated and is located in the patient's chart. Examination: Patient has mild valgus deformity. She has no evidence of steroid atrophy. No significant effusion. Left knee range of motion 0 to 110 degrees. Imaging: Previously obtained X-rays reviewed in the office today on [facility] PACS: Weight bearing AP of Both knees, Steinberg view of Both Knees, Coolidge View of Both Knees, and Lateral of the Left knee; demonstrate Severe end-stage osteoarthritis of the Left knee. There is [id number] articulation laterally, subchondral sclerosis, osteophyte formation. There is valgus deformity and there is Moderate patellofemoral involvement. There is Kellgren Gage grade 4 osteoarthritis. There is appropriate position of the contralateral knee replacement Impression: Left knee end-stage osteoarthritis and cardiac issues Plan: The patient returns the office today requesting total knee arthroplasty. We attempted to review the medical record and I am unsure exactly why patient's surgery was canceled for cardiac issues. Although I I am suspicious of hypertension on the date of surgery. Because the patient surgery was previously canceled I recommended that she follow-up with her body component engineer at [facility] cardiology she obtained provisional medical clearance. Once she has been medically cleared for surgical intervention she will call us and we will proceed with skin doing for total knee arthroplasty. I attempted to answer all of her questions today in the office. [email or web address] Not available 06/21/2024 16:48:49 Plan of Treatment Reminders Order Date Submit Date Provider Last Modified By Organization Details Last Modified Time Details Appointments None recorde d. Lab None recorde d. Referral None recorde d. Procedures None recorde d. Surgeries None recorde d. Imaging XR, knee, 4 or more view - rm 206 R knee pain, wants sx 024 06/21/20 24 [email or web address] [facility] Office, [address] [facility], [facility] [address], [place], [address], 4 09:37:34 Medication Orders None recorde d. Patient TargetsNo targets recorded. Patient InstructionsNo instructions recorded. Reason for Referral None Reported. Problems Name Problem SNOMED Code Status Onset Date Resolution Date Notes Provider Name and Address Organization Details Recorded Time No complaints [id number] Active Status : 'I'; Not Available [facility] 4 09:12:53 Problem Notes None recorded. Medical Equipment None Reported. Allergies Allergen ID Allergen Name Allergen Category Reaction Reaction Severity Criticality Documentation Date Start Date Code Code System Note Provider Name and Address Organization Details Recorded Time 79892 latex environme nt,medica tion Not available Not available Not available 01/29/20242016 60218 91 RxNorm Not Available [facility] 4 13:10:48 Medications Name Sig Start Date Stop Date Status Note LastModified by Organization Details LastModified Time losartan 50 mg tablet TAKE 1 TABLET BY MOUTH EVERY DAY active Not Available Not Available No t Available amoxicillin 500 mg capsule TAKE 4 CAPSULES BY MOUTH ONE HOUR PRIOR TO DENTAL WORK active Not Available Not Available No t Available atorvastatin 40 mg tablet TAKE 1 TABLET BY MOUTH EVERY DAY active Not Available Not Available No t Available amlodipine 2.5 mg tablet TAKE 1 TABLET BY MOUTH EVERY DAY active Not Available Not Available No t Available aspirin 81 mg tablet,delaye d release TAKE 1 TABLET BY MOUTH EVERY DAY active Not Available Not Available No t Available triamcinolone acetonide 0.1 % topical cream APPLY TOPICALLY TO ECZEMA ON BODY TWICE DAILY NEEDED UNTIL CLEAR. active Not Available Not Available No t Available isosorbide mononitrate ER 60 mg tablet,extend ed release 24 hr TAKE 1 TABLET BY MOUTH EVERY DAY active Not Available Not Available No t Available metronidazole 0.75 % topical cream APPLY TO FACE 1-2 TIMES DAILY FOR ROSACEA active Not Available Not Available No t Available mupirocin 2 % topical ointment APPLY TO SURGICAL SITE TWICE A DAY FOR 10-14 DAYS DAYS OR UNTIL FULLY HEALED active Not Available Not Available No t Available albuterol sulfate HFA 90 mcg/actuation aerosol inhaler INHALE 2 PUFFS EVERY 6 HOURS NEEDED FOR SHORTNESS OF BREATH OR WHEEZING FOR 30 DAYS active Not Available Not Available No t Available ipratropium bromide 42 mcg (0.06 %) nasal spray INSTILL 2 SPRAYS INTO EACH NOSTRIL 3 TIMES A DAY NEEDED FOR ALLERGY SYMPTOMS active Not Available Not Available No t Available losartan 100 mg tablet TAKE 1 TABLET BY MOUTH EVERY DAY active Not Available Not Available No t Available azithromycin 500 mg tablet TAKE 1 TABLET BY MOUTH EVERY DAY FOR 5 DAYS active Not Available Not Available N ot Available metoprolol tartrate 25 mg tablet TAKE 1 TABLET BY MOUTH TWICE A DAY active Not Available Not Available No t Available Flovent HFA 110 mcg/actuation aerosol inhaler INHALE 1 PUFF INTO THE LUNGS TWICE A DAY active Not Available Not Available No t Available calcium Calcium 1500MG Tablet 2012 active Statu s: 'Curr ent'; Not Available Not Available Not Available fluticasone 232 mcg-salmetero l 14 mcg/actuation breath activated powdr INHALE 1 PUFF EVERY 12 HOURS active Not Available Not Available No t Available Trelegy Ellipta 200 mcg-62.5 mcg-25 mcg powder for inhalation INHALE 1 PUFF BY MOUTH DAILY active Not Available Not Available No t Available Vitals Date Recorded Body height Body mass index (BMI) Body weight Provider Name and Address Organization Details Last Updated DateTime 06/21/2024 152.4 cm 37.1 kg/m2 00769.55 g NANCY HILLIARD [place] - [facility] 06/21/2024 13:50:15 Social History None recorded. Functional Status None recorded. Mental Status None recorded. Family History Nothing Reported. Medical History No medical history recorded. Gynecological HistoryNo gynecological history recorded. Obstetrics History GPAL:G 0 P 0 0 0 0 Past Encounters Encounter ID Performer Location Encounter Start Date Encounter Closed Date Diagnosis/Indication Diagnosis SNOMED-CT Code Diagnosis ICD10 Code Diagnosis Note [id number] [facility] [address] [place] [address] 06/21/2024 13:35:03 07/11/2024 09:37:33 Pain of right knee joint [id number] 54657 M25.561 Health Concerns Section Related Observation LastModified by Organization Detai ls LastModified Time None Recorded Concern Status LastModified by Organization Details LastModified Time None Recorded Advance Directives Directive None Recorded Payers Encounter Date Sequence Insurance Name Policy Number Policy Negron Covered Member ID Negron Member ID Guarantor Name 06/21/2024 1 [place] [employer] Julita Pimentel [id number] Julita Pimentel 06/21/2024 2 [place] [id number] Julita Pimentel [id number] Julita Pimentel OBGyn Episode No OBEpisode recorded.
--- OUTSIDE RECORDS SUMMARY | 2024-12-10 12:32 | XMS_ITS | Patient Health Record ---
Author Organization [facility] Address [address] [place] [address] Care Team Providers Care Australian Rules Footballer Name Role Phone Maximo Vines MD Primary Care Provider Yanely Dyer Unavailable [phone] Allergies No Known Allergies Reason For Referral No Information Medications Medication SIG (Take, Route, Frequency, Duration) Notes Start Date End Date Status Metoprolol Tartrate 25 MG 1 tablet with food Orally Twice a day Active Losartan Potassium 50 MG 1 tablet Orally Once a day Active Ammonium Lactate 12 % 1 application Externally Twice a day for 30 days Active Augmentin 500-125 MG 1 tablet Orally Twi ce a day for 7 days 02/12/2019 Active Physical Therapy . . . 2-3x/week for 3- 4 weeks 09/27/2023 Not-Taking Feldene 20 MG 1 capsule with food Orally Once a day for 14 days 09/22/2021 Not-Taking Crestor 10 MG 1 tablet Orally Once a day for 30 day(s) Not-Taking amLODIPine Besylate 2.5 MG 1 tablet Orally Once a day Active Cephalexin 500 MG 1 tablet Orally Twic e a day for 5 days Not-Taking Isosorbide Mononitrate Active Gabapentin 300 MG 1 capsule Orally Twi ce a day Not-Taking Atorvastatin Calcium 40 MG 1 tablet Orally Once a day for 30 days Active Aspir-81 81 MG 1 tablet Orally Once a day for 30 day(s) Active Immunizations Vaccine Route Administration Date Status Comme nts COVID-19 Pfizer BioNTech Vaccine Unknown 09/01/2021 Administered First Dose: 12/27/20 Second Dose: 01/17/2021 Social History Tobacco Use: Social History Observation Description Date Details (start date - stop date) Never Smoker NA - NA Tobacco Use/Smoking Question Answer Notes Are you a: nonsmoker Additional Findings: Tobacco Non-User Current no n-smoker Alcohol Screen Question Answer Notes Did you have a drink containing alcohol in the p ast year? No Points 0 Interpretation Negative Tobacco use other than smoking: Question Answer Notes Are you an other tobacco user? No Problems Problem Type SNOMED Code ICD Code Onset Dates Problem Status W/U Status Risk Notes Problem Ulcer of toe of right foot (disorder) (864697352454237 01) Skin ulcer of toe of right foot, limited to breakdown of skin (L97.511) Active confirmed Problem Essential hypertension (91341457) Essential hypertension (I10) Active confirmed Vital Signs Blood pressure diastolic 70 mm Hg 11/13/2024 Height 5 ft1in in 11/13/2024 Blood pressure systolic 130 mm Hg 11/13/2024 Weight 180 lbs 11/13/2024 BMI 34.01 kg/m2 11/13/2024 Encounters Encounter Location Date Provider Diagnosis [address] [address] 01/31/2024 Yanely Perica Tinea unguium B35.1 ; Pain in right toe(s) M79.674 and Pain in left toe(s) M79.[address] [address] 04/09/2024 Yanely Perica Tinea unguium B35.1 ; Pain in right toe(s) M79.674 and Pain in left toe(s) M79.[address] [address] 06/26/2024 Yanely Perica Tinea unguium B35.1 ; Pain in right toe(s) M79.674 and Pain in left toe(s) M79.[address] [address] 09/06/2024 Yanely Perica Tinea unguium B35.1 ; Pain in right toe(s) M79.674 and Pain in left toe(s) M79.[address] [place] [address] 09/24/2024 Yanely Perica Ingrown nail L60.0 and Cellulitis of toe of left foot L03.[address] [address] 11/13/2024 Yanely Perica Tinea unguium B35.1 ; Xerosis of skin L85.3 ; Pain in right toe(s) M79.674 and Pain in left toe(s) M79.[address] [address] 04/10/2024 Yanely Perica [facility] [address] [address] 09/20/2024 Yanely Perica Cellulitis of right toe L03.031 Assessments Encounter Date Diagnosis (ICD Code) Assessment Notes Treatment Notes Treatment Clinical Notes Section Notes 01/31/2024 Tinea unguium (ICD-10 - B35.1) 01/31/2024 Pain in right toe(s) (ICD-10 - M79.674) 04/09/2024 Tinea unguium (ICD-10 - B35.1) 06/26/2024 Tinea unguium (ICD-10 - B35.1) 09/06/2024 Tinea unguium (ICD-10 - B35.1) 09/20/2024 Cellulitis of right toe (ICD-10 - L03.031) 09/24/2024 Ingrown nail (ICD-10 - L60.0) 09/24/2024 Cellulitis of toe of left foot (ICD-10 - L03.032) 11/13/2024 Tinea unguium (ICD-10 - B35.1) 11/13/2024 Xerosis of skin (ICD-10 - L85.3) 11/13/2024 Pain in right toe(s) (ICD-10 - M79.674) 09/06/2024 Pain in right toe(s) (ICD-10 - M79.674) 06/26/2024 Pain in right toe(s) (ICD-10 - M79.674) 04/09/2024 Pain in right toe(s) (ICD-10 - M79.674) 01/31/2024 Pain in left toe(s) (ICD-10 - M79.675) 04/09/2024 Pain in left toe(s) (ICD-10 - M79.675) 06/26/2024 Pain in left toe(s) (ICD-10 - M79.675) 09/06/2024 Pain in left toe(s) (ICD-10 - M79.675) 11/13/2024 Pain in left toe(s) (ICD-10 - M79.675) Plan Of Treatment Pending Test Test Name Order Date X ray : Foot, right 3V 09/22/2021 X ray : Foot, right 3V 09/27/2023 Next Appt Details Provider Name:Yanely lambert, 01/24/2025 10:00:00 AM, [address] [place] [address], [phone], Provider Name:Yanely lambert, 04/01/2025 11:30:00 AM, [address] [place] [address], [phone], Insurance Providers Payer Name Payer Address Payer Phone Subscriber Number Group Number Insured Name Patient Relationship to Insured Coverage Start Date Coverage End Date Medicare National [employer] [address] [facility] [place] [address] [id number] Julita Pimentel Self - patient is the insured [employer] [facility] [address] [place] [address] [id number] Julita Pimentel Self - patient is the insured Medical (General) History Medical History History ICD Code Arthritis Back,Hip,and Knee pain CAD (Cholesterol) High blood pressure Psoriasis/eczema Joint implants/screws Surgical History Surgery Date(Month/Year) 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
--- OUTSIDE RECORDS SUMMARY | 2024-12-10 12:32 | XMS_ITS ---
Author Organization [facility] Address [address] [facility] [place] [address] Care Team Providers Care Cardiothoracic Surgeon Name Role Phone Maximo Vines MD Primary Care Provider Yanely Dyer Unavailable [phone] Allergies No Known Allergies REASON FOR VISIT Ingrown nail, Skin problem(s) Medications Medication SIG (Take, Route, Frequency, Duration) Notes Start Date End Date Status Gabapentin 300 MG 1 capsule Orally Twi ce a day Not-Taking Cephalexin 500 MG 1 tablet Orally Twic e a day for 5 days Not-Taking Crestor 10 MG 1 tablet Orally Once a day for 30 day(s) Not-Taking Feldene 20 MG 1 capsule with food Orally Once a day for 14 days 09/22/2021 Not-Taking Physical Therapy . . . 2-3x/week for 3- 4 weeks 09/27/2023 Not-Taking Ammonium Lactate 12 % 1 application Externally Twice a day for 30 days Active Losartan Potassium 50 MG 1 tablet Orally Once a day Active Metoprolol Tartrate 25 MG 1 tablet with food Orally Twice a day Active Aspir-81 81 MG 1 tablet Orally Once a day for 30 day(s) Active Augmentin 500-125 MG 1 tablet Orally Twi ce a day for 7 days 02/12/2019 Active Atorvastatin Calcium 40 MG 1 tablet Orally Once a day for 30 days Active Isosorbide Mononitrate Active amLODIPine Besylate 2.5 MG 1 tablet Orally Once a day Active Social History Tobacco Use: Social History Observation Description Date Details (start date - stop date) Never Smoker NA - NA Tobacco Use/Smoking Question Answer Notes Are you a: nonsmoker Additional Findings: Tobacco Non-User Current no n-smoker Tobacco use other than smoking: Question Answer Notes Are you an other tobacco user? No Vital Signs Height 5 ft1in in 09/24/2024 Weight 180 lbs 09/24/2024 BMI 34.01 kg/m2 09/24/2024 Blood pressure systolic 140 mm Hg 09/24/20 24 Blood pressure diastolic 82 mm Hg 024 Encounters Encounter Location Date Provider Diagnosis [facility] [address] [address] 09/24/2024 Yanely Otero Ingrown nail L60.0 and Cellulitis of toe of left foot L03.032 Assessments Encounter Date Diagnosis (ICD Code) Assessment Notes Treatment Notes Treatment Clinical Notes Section Notes 09/24/2024 Ingrown nail (ICD-10 - L60.0) 09/24/2024 Cellulitis of toe of left foot (ICD-10 - L03.032) Plan Of Treatment Next Appt Details Follow Up: as scheduled, Mary Beth son: Provider Name:Yanely lambert, 01/24/2025 10:00:00 AM, [address] [place] [address], [phone], Provider Name:Yanely lambert, 04/01/2025 11:30:00 AM, [address] [place] [address], [phone], Procedure Notes * Category Sub-Category Detail Notes Matricectomy (OP NOTE) Consent The patie nt was brought to the examination room and placed on the table in a supine position. The pre/kishan/postoperative course, risks, complications and alternatives were discussed, understood and accepted by the patient. No guarantees were given regarding the surgical outcome Procedure A digital prep with alcohol or betadine was performed. 3cc of 1 percent Xylocaine Plain local anesthetic was administered to the toe via digital block utilizing aseptic technique. A digital touriquet was applied. The affected toenail portion was undermined, incised and resected to the eponychium and matrix. It was noted to be significantly incurvated and hypertrophied. The nailbed and matrix were curetted and the nail groove, bed and matrix were cauterized with Phenol, 3 applications of 30 seconds each from a cotton tip applicator, no underling bone was identified. The surrounding skin was protected from the Phenol with Bacitracin ointment. The tourniquet was released and capillary fill time was intact to the digit. A sterile Bacitracin dressing was applied Disposition Disposition: The pat ient tolerated the procedure and anesthesia well and left in good condition, alert, oriented and stable in no acute distress. Local wound care instructions were discussed and dispensed. There were no complications and the prognosis is favorable, Recommended alternating/staggering Tylenol XS 2 tabs and Motrin 600mg q 6 hrs ea for discomfort, Rx narcotic postop pain meds were deferred Location Medial nail border , TA Progress Notes * Julita PIMENTEL MDOB:[birth year] (84 yo F)Acc No.[id number]:09/24/2024 Progress Note Patient:?PimentelJulita espinosa Jorge Provider:?Yanely Otero DPM :1940???Age:84 Y???Sex:Female D ate:09/24/2024 Address:[address] [place], [place] [id number] Pcp:Maximo Vines MD Subjective: * Chief Complaints: * ???Ingrown nailSkin problem( s) * HPI: ???Skin problems:?Nature:?redness, swelling , tender.?Location:?Left , 1st , Toe(s).?Duration:?, several days.?Course:?improved.?Treatments:?Augmentin.? * ROS:?General/Constitutional:?Nausea?denies.?Vomiting?denies.?Hunger Thirst?denies.?Loss appetite?denies.?Chills?denies.?Fatigue?denies.?Fever?denies.?Night Sweats?denies.?Unexplained weight loss?denies.?Unexplained weight gain?denies.?HEENTM:?Dentures?denies.?Dizziness?denies.?Glasses/contacts?admits.?Retinopathy?de nies.?Blurred/double vision?denies.?TMJ?denies.?Discharge/drainage?denies.?Implants?denies.?Sore throat?denies.?Dental implants?denies.?Hard of hearing ?denies.?Difficulty chewing/swallowing/speaking?denies.?Nose bleeds?denies.?Sore mouth?denies.?Respiratory:?On Oxygen?denies.?Pneumonia/pleurisy?denies.?Bronchitis?denies.?Emphysema?denies.?C oughing?denies.?Cough blood?denies.?Shortness of breath?denies.?Wheezing?denies.?Cardiovascular:?Pacemaker?denies.?MVP?denies.?WPW?denies.?CHF?denies.?Heart attack?denies.?Septal defect?denies.?Rapid beat?denies.?Chest pain ?denies.?Atrial Fib.?denies.?Murmur/Palpitations?denies.?Gastrointestinal:?Hemorrhoids?denies.?Stomach/Abdominal pain?denies.?Dark blood stool?denies.?Irritable bowel ?denies.?Constipation?denies.?Diarrhea?denies.?Hematology:?Swelling?admits.?Clots?denies.?Varicose Veins?denies.?Bruising?denies.?Bleeding problem?denies.?Genitourinary:?Blood urine?denies.?Frequent/Painfu/urination/bladder control?denies.?Kidney stones?denies.?Infection (UTI)?denies.?Nephropathy?denies.?sex trans dis (STD)?denies.?Prostate?denies.?Musculoskeletal:?Hammertoes?denies.?Bunions?denies.?Back Pain?denies.?Muscle Cramps/ Resting?denies.?Muscle cramps / walking?denies.?Generalized aches and pains?denies.?Weakness?denies.?Integ.:?[place]?denies.?Scars?denies.?Corns/calluses?denies.?Ingrown nails?denies.?Painful nails?admits.?Open Sores?denies.?Rashes?denies.?Neurologic:?Difficulty sleeping?denies.?Brain disorder?denies.?Numbness?denies.?Balance trouble?denies.?Confusion?denies.?Fainting/blackouts?denies.?Tingling?denies.?Tr emors?denies.? * Medical History:? * Surgical History:?right totfausto l knee replacement 12/06/2018 * Hospitalization/Major Diagno stic Procedure:?Denies Past Hospitalization * Family History:?Mother: dece ased, diagnosed with Family history of arthritis.?Father: , diagnosed with Family history of arthritis.? * Social History:?Tobacco Use:?Tobacco Use/Smoking?Are you a:?nonsmoker ?Additional Findings: Tobacco Non-User?Current non-smoker ?Tobacco use other than smoking?Are you an other tobacco user??No ???Miscellaneous:?Caffeine: yes, 1 cup a day. ?Children: yes, 5. ?Exercise: yes, bike sometimes. ?Marital status: . 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 * Medications:?TakingamLODIPin e Besylate 2.5 MG Tablet 1 tablet Orally Once a dayIsosorbide Mononitrate Atorvastatin Calcium 40 MG Tablet 1 tablet Orally Once a dayAspir-81 81 MG Tablet Delayed Release 1 tablet Orally Once a dayMetoprolol Tartrate 25 MG Tablet 1 tablet with food Orally Twice a dayLosartan Potassium 50 MG Tablet 1 tablet Orally Once a dayAmmonium Lactate 12 % Cream 1 application Externally Twice a dayAugmentin 500-125 MG Tablet 1 tablet Orally Twice a dayTaking amLODIPine Besylate 2.5 MG Tablet 1 tablet Orally Once a dayTaking Isosorbide Mononitrate Taking Atorvastatin Calcium 40 MG Tablet 1 tablet Orally Once a dayTaking Aspir-81 81 MG Tablet Delayed Release 1 tablet Orally Once a dayTaking Metoprolol Tartrate 25 MG Tablet 1 tablet with food Orally Twice a dayTaking Losartan Potassium 50 MG Tablet 1 tablet Orally Once a dayTaking Ammonium Lactate 12 % Cream 1 application Externally Twice a dayTaking Augmentin 500-125 MG Tablet 1 tablet Orally Twice a dayNot-Taking/PRNPhysical Therapy . . . . 2-3x/weekFeldene 20 MG Capsule 1 capsule with food Orally Once a dayCrestor 10 MG Tablet 1 tablet Orally Once a dayCephalexin 500 MG Tablet 1 tablet Orally Twice a dayGabapentin 300 MG Capsule 1 capsule Orally Twice a dayMedication List reviewed and reconciled with the patientNot- Taking/PRN Physical Therapy . . . . 2-3x/weekNot-Taking/PRN Feldene 20 MG Capsule 1 capsule with food Orally Once a dayNot-Taking/PRN Crestor 10 MG Tablet 1 tablet Orally Once a dayNot-Taking/PRN Cephalexin 500 MG Tablet 1 tablet Orally Twice a dayNot- Taking/PRN Gabapentin 300 MG Capsule 1 capsule Orally Twice a dayMedication List reviewed and reconciled with the patient * Allergies:?N.K.D.A.yes[Aller gies Verified] Objective: * Vitals:?Ht: 5 ft1in, Wt: 180 , BMI: 34.01, Shoe size: 8, BP: 140/82 mm Hg, Ht-cm: 154.94 cm, Wt-k.65 kg. * Examination: ???Ingrown Nail: ?INSPECTION:?Reveals incurvation, pain on palpation, groove hypertrophy , There is evidence of surrounding periungual tissue erythema , Medial nail border , TA.?Dermatologic: ?SKIN FINDINGS:? Skin shows sign(s) of, mild?localized cellulitis TA without lymphangitis.?General Examination: ?GENERAL APPEARANCE:?Reveals a pleasant, alert, well nourished, well- developed, well hydrated individual, who demonstrates proper attention to hygiene/body habitus, and is in no acute distress, Pt serves as own historian for office visit today.?ORIENTED:?person, place, and time.?Vascular: ?DP PULSES(B):?3/4, B/L.?PT PULSES(B):?3/4, B/L.?CAPILLARY FILL TIME:?immediate, all digits, B/L.?TROPHIC CONDITION-TEXTURE/ELASTICITY/TURGOR/HAIR GROWTH(B):?normal, B/L.?TEMPERTURE GRADIENT(C):?normal, warm to cool, proximal to distal, B/L, B/L.?Neurological: ?SENSORY:?Neurological exam reveals intact sensorium, pain sensation normal, vibration sensation intact, pinprick sensation is normal in the lower extremities, Pt denies, anesthesia, burning, paresthesia, tingling, B/L.? Assessment: * Assessment: 1.?Ingrown nail - L60.0 (Xenia beavers)?2.?Cellulitis of toe of left foot - L03.032, Acute problem, Complicated w/ Multiple Tx Options(4),Dx New problem, Prognosis Uncertain (4),Rx Management (4)? Plan: * Treatment: * Procedures:?Matricectomy (OP NOTE):?Location?Medial nail border , TA.?Consent?The patient was brought to the examination room and placed on the table in a supine position. The pre/kishan/postoperative course, risks, complications and alternatives were discussed, understood and accepted by the patient. No guarantees were given regarding the surgical outcome.?Procedure?A digital prep with alcohol or betadine was performed. 3cc of 1 percent ?Xylocaine Plain local anesthetic was administered to the toe via digital block utilizing aseptic technique. A digital touriquet was applied. The affected toenail portion was undermined, incised and resected to the eponychium and matrix. It was noted to be significantly incurvated and hypertrophied. The nailbed and matrix were curetted and the nail groove, bed and matrix were cauterized with Phenol, 3 applications of 30 seconds each from a cotton tip applicator, no underling bone was identified. The surrounding skin was protected from the Phenol with Bacitracin ointment. The tourniquet was released and capillary fill time was intact to the digit. A sterile Bacitracin dressing was applied .?Disposition?Disposition: The patient tolerated the procedure and anesthesia well and left in good condition, alert, oriented and stable in no acute distress. Local wound care instructions were discussed and dispensed. There were no complications and the prognosis is favorable, Recommended alternating/staggering Tylenol XS 2 tabs and Motrin 600mg q 6 hrs ea for discomfort, Rx narcotic postop pain meds were deferred.? * Procedure Codes:?64532 REMOV AL OF NAIL BED * Preventive Medicine:? ??Counseling:?Discussion:?-13: Office or other outpatient visit for the evaluation and management of an established patient, which required a medically appropriate history and/or examination and LOW level of DECISION MAKING for: 1 STABLE ACUTE UNCOMPLICATED PROBLEM, 2 OR MORE MINOR PROBLEMS, OR 1 STABLE CHRONIC PROBLEM, THAT POSE(S) A LOW RISK FOR MORBIDITY/MORTALITY. The visit on the day of the encounter encompassed interpreting the data and educating the patient as to the nature of their condition, treatment options available according to their individual PMH, meds, allergies, and overall health/living conditions, as well as any potential risks or complications that may occur from a failure to adhere to, and participate in, the recommended course of therapy. The discussion included a complete verbal, and/or written explanation of the examination results, any x-rays taken, the proposed diagnosis, and outline of the treatment plan. A schedule for future care needs was also explained. The patient verbalized an understanding of the instructions at this time and agreed to be an active participant in their treatment. If the patient should think of any questions or concerns after the visit, I have encouraged the patient to call the office.?Abscess/Paraonychia/Ingrown Nails:?We discussed the possible etiologies (genetic, improper nail care, shoe gear, nail trauma) which may lead to ingrown nails and/or paronychial infections. We discussed and reviewed palliative/nonsurgical/deferring definitive treatment (vs) undergoing the treatment procedures of nail avulsion(s) or PNA, which may prevent recurrence and give more lasting results. The possible risks/complications such as worsened condition/delayed healing/nonhealing/failure/recurrence/infection, the potential benefits/advantages of decreased pain/deformity, as well as alterative treatment options including applying nail softening agents/nail groove packing were discussed. No guarantees were given regarding any outcome for any procedure. The patient was educated in the length of time for the affected nail to regrow once completely healed from a nail avulsion procedure. Once the condition has completely healed, the patient was consulted on proper nail care. Patient questions such as details of each procedure, varying time to heal, activity post procedure, and shoe gear were discussed and the answers were verbally confirmed fully understood.?Cellulitis/Lymphangitis?The patient was counseled on the diagnosis, etiology, treatment options, and importance for adherence to recommendations regarding the treatment for Cellulitis. Abx were Rxed to address the cellulitis. The advantages and disadvantages of an antibiotic medication, along with its side effects, were discussed with the patient to their comprehended satisfaction. Patient questions re: use, dosage, and possible pharmacutical interactions were reviewed and the answers clearly understood. If the condition should worsen while taking the antibiotics as directed, it was recommeded that the patient call the office immediately or seek emergency medical care. The patient verbally confirmed a full understanding of the above information, Complete, Rxed Abx.? * Follow Up:?as scheduled * Images: * Sign off status: Completed true * Provider:?Yanely Otero DPM Date:? Generated for Terry garcia/Mini/Namita on:?12/10/2024 12:31 PM EST History and Physical Notes * HPI (History of Present Illness) Category Sub-Category Detail Notes Category Not es Skin problems Nature: redness , swelling , tender Location: Left , 1st , Toe(s) Duration: , several days Course: improved Treatments: Augmentin Examination Category Sub-Category Detail Notes Category Not es Ingrown Nail INSPECTION: Reveals incurvat ion, pain on palpation, groove hypertrophy , There is evidence of surrounding periungual tissue erythema , Medial nail border , TA Neurological SENSORY: Neurological exa m reveals intact sensorium, pain sensation normal, vibration sensation intact, pinprick sensation is normal in the lower extremities, Pt denies, anesthesia, burning, paresthesia, tingling, B/L Dermatologic SKIN FINDINGS: Skin shows sign( s) of, mild localized cellulitis TA without lymphangitis General Examination GENERAL APPEARANCE: Reveals a pleasant, alert, well nourished, well-developed, well hydrated individual, who demonstrates proper attention to hygiene/body habitus, and is in no acute distress, Pt serves as own historian for office visit today ORIENTED: person, place, and t ana cristina Vascular DP PULSES (B): 3/4, B/L PT PULSES (B): 3/4, B/L CAPILLARY FILL TIME: immediate, all digi ts, B/L TEMPERTURE GRADIENT (C): normal, warm to cool, proximal to distal, B/L, B/L TROPHIC CONDITION-TEXTURE/ELASTICITY/TURGOR/HAIR GROWTH (B): normal, B/L
== END 2024-12-10 11:19 | disposition home or self-care (01) ==
PROVIDERS: PCP Internal Medicine; Visit Provider Hospitalist
DX: J45.50 Severe persistent asthma, uncomplicated (principal); R05.3 Chronic cough; K44.9 Diaphragmatic hernia without obstruction or gangrene; R91.1 Solitary pulmonary nodule
CPT/HCPCS: 99214

== ENCOUNTER → 2024-12-10 10:43 | Outpatient (BNVA) | payer MEDICARE, SELFPAY | PROVIDERS: PCP Internal Medicine; Visit Provider Hospitalist | DX: J45.50 Severe persistent asthma, uncomplicated (principal); R91.1 Solitary pulmonary nodule; R05.3 Chronic cough; K44.9 Diaphragmatic hernia without obstruction or gangrene | CPT/HCPCS: 99212 ==

== ENCOUNTER 2025-01-17 14:19 | Outpatient (REF) | payer MEDICARE, SELFPAY ==
--- NOTE | ~2025-01-17 | CT_ITS ---
CLINICAL HISTORY: R91.1 - Solitary pulmonary nodule CT chest without contrast Comparison: None Findings: There is severe coronary artery disease. There is a small hiatal hernia. There are multiple bilateral pulmonary nodules. Right upper lobe: 4.8 mm perivascular nodule image number 42 of series number 5. Right lower lobe: two 4 mm pleural-based nodules image number 49 series number 5. 4.4 mm nodule superior segment right lower lobe image number 40 of series 5. Elongated 7 mm nodule image number 108 Right middle lobe: 4 mm nodule image number 83 series number 5. 3 mm nodule image number 86 series number 5. Left upper lobe: calcified granuloma image number 66 series number Left lower lobe: 3 mm nodule Image number 72 series number 5. The visualized upper abdomen is unremarkable. The bones are intact. Elongated 7 mm nodule image number 108 of series number 5. 4 mm nodule image number 93 series 5. IMPRESSION: 1. Multiple bilateral pulmonary nodules largest of which measures up to 7 mm in diameter. According to the Fleischner criteria: 6-8 mm nodules need 3-[address] follow-up followed by an optional 18-[address] follow-up regardless of patient risk. This document has been electronically signed by: Wilfredo Parsons MD on 01/20/2025 08:47:05
--- OUTSIDE RECORDS SUMMARY | 2025-01-17 14:41 | XMS_ITS | Data Portability ---
Author Organization FERNIE Selvin Bowman Devictor [facility], [facility] Address [address] [place] [address] Care Team Providers Care Job Superintendent Name Role Phone RAMON HERNANDEZ Primary Care Provider [phone] Assessment Encounter Date Assessment Date Assessment LastModified [...] X-rays reviewed in the office today on [employer] PACS: Weight bearing AP of Both knees, Steinberg view of Both Knees, [place] View of Both Knees, and Lateral of the Left knee; demonstrate Severe end-stage osteoarthritis of the Left knee. There is [id number] articulation laterally, subchondral sclerosis, osteophyte formation. 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 Once she has been medically cleared for surgical intervention she will call us and we will proceed with skin doing for total knee arthroplasty. I attempted to answer all of her questions today in the office. [email or web address] Not available 06/21/2024 16:48:49 Plan of Treatment Reminders Order Date Submit Date Provider Last Modified By Organization Details Last Modified Time Details Appointments None recorde d. Lab None recorde d. Referral None recorde d. Procedures None recorde d. Surgeries None recorde d. Imaging XR, knee, 4 or more view - rm 206 R knee pain, wants sx 024 06/21/20 24 [facility] Office, [address] [facility], [facility] [address], [place], [address], 4 09:37:34 Medication Orders None recorde d. Patient TargetsNo targets recorded. Patient InstructionsNo instructions recorded. Reason for Referral None Reported. Problems Name Problem SNOMED Code Status Onset Date Resolution Date Notes Provider Name and Address Organization Details Recorded Time No complaints [id number] Active Status : 'I'; Not Available [facility] 4 09:12:53 Problem Notes None recorded. Medical Equipment None Reported. Allergies Allergen ID Allergen Name Allergen Category Reaction Reaction Severity Criticality Documentation Date Start Date Code Code System Note Provider Name and Address Organization Details Recorded Time 40785 latex environme nt,medica tion Not available Not available Not available 01/29/20242016 75525 91 RxNorm Not Available [facility] 4 13:10:48 Medications Name Sig Start [...] Updated DateTime 06/21/2024 152.4 cm 37.1 kg/m2 32330.55 g NANCY HILLIARD [place] - [facility] 06/21/2024 13:50:15 Social History None recorded. Functional Status None recorded. Mental Status None recorded. Family History Nothing Reported. Medical History No medical history recorded. Gynecological HistoryNo gynecological history recorded. Obstetrics History GPAL:G 0 P 0 0 0 0 Past Encounters Encounter ID Performer Location Encounter Start Date Encounter Closed Date Diagnosis/Indication Diagnosis SNOMED-CT Code Diagnosis ICD10 Code Diagnosis Note [id number] [facility] [address] [place] [address] 06/21/2024 13:35:03 07/11/2024 09:37:33 Pain of right knee joint [id number] 71260 M25.561 Health Concerns Section Related Observation LastModified by Organization Detai ls LastModified Time None Recorded Concern Status LastModified by Organization Details LastModified Time None Recorded Advance Directives Directive None Recorded Payers Encounter Date Sequence Insurance Name Policy Number Policy Negron Covered Member ID Negron Member ID Guarantor Name 06/21/2024 1 [place] [employer] Julita Pimentel [id number] Julita Pimentel 06/21/2024 2 [place] [id number] Julita Pimentel [id number] Julita Pimentel OBGyn Episode No OBEpisode recorded.
--- OUTSIDE RECORDS SUMMARY | 2025-01-17 14:41 | XMS_ITS ---
Author Organization [facility] Address [address] [place] [address] Care Team Providers Care Mushroom Sorter Grader Name Role Phone Maximo Vines MD Primary Care Provider Yanely Dyer [phone] REASON FOR VISIT Red, painful toe Medications Medication SIG (Take, Route, Fr equency, Duration) Notes Start Date End Date Status Augmentin 500-125 MG 1 tablet Orally Twi ce a day for 7 days 02/12/2019 Active Encounters Encounter Location Date Provider Diagnosis [facility] [address] [address] 09/20/2024 Yanely Saúlfausto Cellulitis of right toe [...] Name:Yanely Castillo Peric a, 01/24/2025 10:00:00 AM, [address] [place] [address], [phone], Provider Name:Yanely Castillo Peric a, 04/01/2025 11:30:00 AM, [address] [place] [address], [phone], Progress Notes * Julita PIMENTEL MDOB:[birth year] (84 yo F)Acc No.[id number]:09/20/2024 Patient:?Julita Pimentel :1940???Age:84 Y???Sex:Female Address:[address] [place] [address], [place] [address] * Refills? Refill Augmentin Tablet, 500-125 MG, Orally, 14 Tablet, 1 tablet, Twice a day, 7 days, Refills=0 * true * Date:? Generated for Terry garcia/Mini/eTransmitting on:?01/17/2025 02:40 PM EST
--- OUTSIDE RECORDS SUMMARY | 2025-01-17 14:41 | XMS_ITS | Patient Health Record ---
Author Organization [facility] Address [address] [place] [address] Care Team Providers Care Home Assessment Nurse Name Role Phone Maximo Vines MD Primary Care Provider Yanely Dyer Unavailable [phone] Allergies No Known Allergies Reason For Referral [...] Ulcer of toe of right foot (disorder) (543564968805061 01) Skin ulcer of toe of right foot, limited to breakdown of skin (L97.511) Active confirmed Problem Essential hypertension (96062603) Essential hypertension (I10) Active confirmed Vital Signs Blood pressure diastolic 70 mm Hg 11/13/2024 Height 5 ft1in in 11/13/2024 Blood pressure systolic 130 mm Hg 11/13/2024 Weight 180 lbs 11/13/2024 BMI 34.01 kg/m2 11/13/2024 Encounters Encounter Location Date Provider Diagnosis [address] [address] 01/31/2024 Yanely Perica Tinea unguium B35.1 ; Pain in right toe(s) M79.674 and Pain in left toe(s) M79.[address] [address] 04/09/2024 Yanely Perica Tinea unguium B35.1 ; Pain in right toe(s) M79.674 and Pain in left toe(s) M79.[address] [address] 06/26/2024 Yanely Perica Tinea unguium B35.1 ; Pain in right toe(s) M79.674 and Pain in left toe(s) M79.[address] [address] 09/06/2024 Yanely Perica Tinea unguium B35.1 ; Pain in right toe(s) M79.674 and Pain in left toe(s) M79.[address] [place] [address] 09/24/2024 Yanely Perica Ingrown nail L60.0 and Cellulitis of toe of left foot L03.[address] [address] 11/13/2024 Yanely Perica Tinea unguium B35.1 ; Xerosis of skin L85.3 ; Pain in right toe(s) M79.674 and Pain in left toe(s) M79.[address] [address] 04/10/2024 Yanely Perica [facility] [address] [address] 09/20/2024 Yanely Perica Cellulitis of right toe [...] Details Provider Name:Yanely lambert, 01/24/2025 10:00:00 AM, [address] [place] [address], [phone], Provider Name:Yanely lambert, 04/01/2025 11:30:00 AM, [address] [place] [address], [phone], Insurance Providers Payer Name Payer Address Payer Phone Subscriber Number Group Number Insured Name Patient Relationship to Insured Coverage Start Date Coverage End Date Medicare National [employer] [address] [place] [address] [id number] Julita Pimentel Self - patient is the insured [facility] [address] [place] [address] [id number] Julita Pimentel Self - patient is the insured Medical (General) History Medical History History ICD Code Arthritis Back,Hip,and Knee pain CAD (Cholesterol) High blood pressure Psoriasis/eczema Joint implants/screws Surgical History Surgery Date(Month/Year) 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
--- OUTSIDE RECORDS SUMMARY | 2025-01-17 14:41 | XMS_ITS | Clinical Summary ---
Author Organization [facility] Address [address] [place] [address] Care Team Providers Care Crime Scene Analyst Name Role Phone Maximo Vines MD Primary Care Provider [phone] Allergies No known active allergies Medications metoprolol tartrate (LOPRESSOR) 25 mg tablet Take 1 tablet (25 mg total) by mouth 2 (two) times a day. 08/19/2024 Active isosorbide mononitrate (IMDUR) 60 mg 24 hr tablet Take 1 tablet (60 mg total) by mouth 1 (one) time each day. 08/01/2024 Active losartan (COZAAR) 50 mg tablet Take 1 Tablet by mouth at bedtime. Active amLODIPine (NORVASC) 2.5 mg tablet Take 1 tablet (2.5 mg total) by mouth 1 (one) time each day. 05/23/2024 Active aspirin 81 mg EC tablet Take 81 mg by mouth daily. Active acetaminophen (TYLENOL) 500 mg tablet Take 1 tablet (500 mg total) by mouth every 6 (six) hours if needed. Active atorvastatin (LIPITOR) 40 mg tablet TAKE 1 TABLET BY MOUTH EVERY DAY 90 tablet 3 11/25/2024 Active Active Problems Problem Noted Date Diagnosed Date Coronary artery disease 06/17/2022 Overview (11/01/2024): Last Assessment & Plan: Patient has history of GA in the past as noted on previous EKG and myocardial perfusion imaging from 04/2022. She underwent further evaluation with a coronary angiogram but had a nuclear stress test due to complaints of exertional dyspnea and this showed moderate size severe intensity perfusion defect of the basal to mid inferior and inferolateral rod with stress. This was suggestive of prior infarct with kishan-infarct ischemia. She underwent further evaluation with a coronary angiogram which showed a chronic total occlusion of the proximal left circumflex with left to left collaterals. No PCI was indicated. She has remained on cardioprotective medical therapy with aspirin, isosorbide, metoprolol and atorvastatin as prescribed. I have reviewed with the patient the importance of a heart healthy lifestyle which includes eating a low-fat low-salt diet, getting regular exercise, maintaining a healthy weight, not smoking, and following up with routine medical care. She may need to repeat stress testing if she decides to move forward with knee replacement surgery. For now we will hold off on any additional testing. Hyperlipidemia 06/17/2022 Overview (11/01/2024): Last Assessment & Plan: His last LDL cholesterol was 63. This is at goal. Continue with atorvastatin as prescribed. 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 I suspect her dyspnea is more to do with diastolic heart failure or an obesity and inactivity and anything else. Could also be secondary to her hypertension with increased afterload affecting LV systolic function. We will tainting the stress test we will increase her medical management bring her back and see how she is doing if she has a negative stress test and this is all diastolic failure. Abnormal echocardiogram 04/28/2022 HTN (hypertension) 04/28/2022 Overview (11/01/2024): Last Assessment & Plan: Patient's blood pressure is acceptable with a reading today of 122/72. She will continue on losartan and amlodipine as prescribed. Medical History Medical History Date Comments Fatigue DX:Fatigue Social History Tobacco Use Types Packs/Day Years Used Date Smoking Tobacco: Never Smokeless Tobacco: Never Alcohol Use Standard Drinks/Week Comments Never 0 (1 standard drink = 0.6 oz pur e alcohol) Comments Unknown Sex and Gender Information Value Date Recorded Sex Assigned at Not on file Legal Sex Female 7:47 AM EST Gender Identity Not on file Sexual Orientation Not on file Obstetrics History Last Filed Vital Signs Vital Sign Reading Time Taken Comments Blood Pressure 122/72 05/23/2024 10:20 AM EDT Pulse 80 05/23/2024 9:43 AM EDT Temperature - - Respiratory Rate - - Oxygen Saturation - - Inhaled Oxygen Concentration - - Weight 86.6 kg (191 lb) 05/23/2024 9:43 AM EDT Height 152.4 cm (5') 05/23/2024 9:43 AM EDT Body Mass Index 37.3 05/23/2024 9:43 AM EDT Plan of Treatment Upcoming Encounters Date Type Department Care Team (Late st Contact Info) Description 01/29/2025 10:50 AM EST Office Visit [facility] Cardiology [address] [place] [address] Corey Nelson MD [address] [place] [address] [address] [place] [address] Health Maintenance Due Date Last Done Comments DTaP,Tdap,and Td Vaccines (1 - Tdap) 1961 Zoster Vaccines (1 of 2) 1992 RSV Immunization Patients 60+ Years Old (1 - 1-dose 75+ series) 2017 Cholesterol Screening (Lipid Panel) 11/06/2022 Depression Screening 11/06/2022 Falls Risk Assessment 11/06/2022 Hypertension/CHF/CAD Annual BMP Blood Test 11/06/2022 Osteoporosis Screening (Bone Density Screening) 11/06/2022 Social Influencers of Health Screening 11/06/2022 Medicare Annual Wellness Visit 05/03/2024 05/03/2023 COVID-19 Vaccine ( season) 2024 Influenza Vaccine (#1) 2024 3, 09/19/2022, 09/02/2021, Additional history exists Pneumococcal Vaccine: 50+ Years Completed 06/25/2020, 05/10/2019 HIB Vaccines Aged Out No longer eligi ble based on patient's age to complete this topic HPV Vaccines Aged Out No longer eligi ble based on patient's age to complete this topic Hepatitis A Vaccines Aged Out No long er eligible based on patient's age to complete this topic Hepatitis B Vaccines Aged Out No long er eligible based on patient's age to complete this topic IPV Vaccines Aged Out No longer eligi ble based on patient's age to complete this topic MMR Vaccines Aged Out No longer eligi ble based on patient's age to complete this topic Meningococcal ACWY Vaccine Aged Out N o longer eligible based on patient's age to complete this topic Meningococcal B Vacine Aged Out No lo nger eligible based on patient's age to complete this topic RSV Immunization Patients Under 20 months Aged Out No longer eligible based on patient's age to complete this topic Varicella Vaccines Aged Out No longer eligible based on patient's age to complete this topic Insurance MEDICARE [facility] Care Teams Crime Scene Analyst Relationship Specialty Start Date End Date Maximo Vines MD [address] [place] [address] Dr Wilmer [place] PCP - General Internal Medicine 03/21/22
--- OUTSIDE RECORDS SUMMARY | 2025-01-17 14:41 | XMS_ITS ---
Author Organization [facility] [place] Address [address] [place] [address] Care Team Providers Care Consulting Business Developer Name Role Phone Maximo Vines MD Primary Care Provider Yanely Dyer Unavailable [phone] Allergies No Known Allergies REASON FOR VISIT [...] 024 Encounters Encounter Location Date Provider Diagnosis [facility] [address] [address] 09/24/2024 Yanely Otero Ingrown nail L60.0 and [...] son: Provider Name:Yanely lambert, 01/24/2025 10:00:00 AM, [address] [place] [address], [phone], Provider Name:Yanely lambert, 04/01/2025 11:30:00 AM, [address] [place] [address], [phone], Procedure Notes * Category Sub-Category Detail Notes [...] Julita PIMENTEL MDOB:[birth year] (84 yo F)Acc No.[id number]:09/24/2024 Progress Note Patient:?PimentelJulita espinosa Jorge Provider:?Yanely Otero DPM :1940???Age:84 Y???Sex:Female D ate:09/24/2024 Address:[address] [place] [address] Pcp:Maximo Vines MD Subjective: * Chief Complaints: [...] postop pain meds were deferred.? * Procedure Codes:?52049 REMOV AL OF NAIL BED * Preventive [...] Otero DPM Date:? Generated for Terry garcia/Mini/Namita on:?01/17/2025 02:41 PM EST History and Physical Notes * [...]
--- OUTSIDE RECORDS SUMMARY | 2025-01-17 14:41 | XMS_ITS ---
Author Organization [facility] Address [address] [facility] [place] [address] Care Team Providers Care Lead Engineer Name Role Phone Maximo Vines MD Primary Care Provider Yanely Dyer Unavailable [phone] Allergies No Known Allergies REASON FOR VISIT Painful nail(s) aggravated by shoes causing difficulty standing/walking, Skin problem(s) Medications Medication SIG (Take, Route, Frequency, Duration) Notes Start Date End Date Status Metoprolol Tartrate 25 MG 1 tablet with food Orally Twice a day Active amLODIPine Besylate 2.5 MG 1 tablet Orally Once a day Active Isosorbide Mononitrate Active Atorvastatin Calcium 40 MG 1 tablet Orally Once a day for 30 days Active Aspir-81 81 MG 1 tablet Orally Once a day for 30 day(s) Active Physical Therapy . . . 2-3x/week for 3- 4 weeks 09/27/2023 Not-Taking Feldene 20 MG 1 capsule with food Orally Once a day for 14 days 09/22/2021 Not-Taking Crestor 10 MG 1 tablet Orally Once a day for 30 day(s) Not-Taking Cephalexin 500 MG 1 tablet Orally Twic e a day for 5 days Not-Taking Gabapentin 300 MG 1 capsule Orally Twi ce a day Not-Taking Losartan Potassium 50 MG 1 tablet Orally Once a day Active Ammonium Lactate 12 % 1 application Externally Twice a day for 30 days Active Augmentin 500-125 MG 1 tablet Orally Twi ce a day for 7 days 02/12/2019 Active Social History Tobacco Use: Social History [...] Problem Status W/U Status Risk Notes Problem Essential hypertension (14981724) Essential hypertension (I10) Active confirmed Vital Signs Height 5 ft1in in 11/13/2024 Weight 180 lbs 11/13/2024 BMI 34.01 kg/m2 11/13/2024 Blood pressure systolic 130 mm Hg 11/13/20 24 Blood pressure diastolic 70 mm Hg 024 Encounters Encounter Location Date Provider Diagnosis [facility] [address] [address] 11/13/2024 Yanely Branden Tinea unguium B35.1 ; Xerosis of skin L85.3 ; Pain in right toe(s) M79.674 and Pain in left toe(s) M79.675 Assessments Encounter Date Diagnosis (ICD Code) Assessment Notes Treatment Notes Treatment Clinical Notes Section Notes 11/13/2024 Tinea unguium (ICD-10 - B35.1) 11/13/2024 Xerosis of skin (ICD-10 - L85.3) 11/13/2024 Pain in right toe(s) (ICD-10 - M79.674) 11/13/2024 Pain in left toe(s) (ICD-10 - M79.675) Plan Of Treatment Next Appt Details Follow Up: 2 Months, Reason: Provider Name:Yanely lambert, 01/24/2025 10:00:00 AM, [address] [place] [address], [phone], Provider Name:Yanely lambert, 04/01/2025 11:30:00 AM, [address] [place] [address], [phone], Procedure Notes * Category Sub-Category Detail Notes Debride Nail 6-10 Nail debridement Due to the cl inical pathology outlined in the exam findings, performance of this nail treatment is medically necessary as its management by an unskilled/untrained nonprofessional would put this patients foot and overall health at risk. Therefore, debridement to affected nail(s), as described in exam ( TA, T1, T2, T3, T4, T5, T6, T7, T8, T9), was performed exclusively by the physician of record to reduce/remove overall nail length, girth, thickness, subungual debris, and necrotic tissue, by manual and/or electrical means through the use of a nail nipper and/or dremel-type cork grinder, to a more viable healthy nail plate or bed tissue 6-10 nails in total. Silver nitrate was used for any petechial bleeding as necessary. Definitive antifungal treatment options, both pharmaceutical and surgical, have been reviewed and discussed with the patient. The patient solely prefers the use of intermittent/as needed professional debridement services for their nail condition and understands the need for additional periodic treatments to maintain effectiveness in symptomatic relief - [address] Progress Notes * Julita PIMENTEL MDOB:[birth year] (84 yo F)Acc No.[id number]:11/13/2024 Progress Note Patient:?Julita PIMENTEL Provider:?Yanely Otero DPM :1940???Age:84 Y???Sex:Female D ate:11/13/2024 Address:[address] [place], [place] [address] Pcp:Maximo Vines MD Subjective: * Chief Complaints: * ???Painful nail(s) aggravate d by shoes causing difficulty standing/walkingSkin problem(s) * HPI: ???Painful Nails:?Pt States Last PCP Visit:?Date:?08/13/2024 ???Skin problems:?Nature:?dryness , scaling.?Location:?B/L .?Duration:?several days.?Course:?worse.? * ROS:?General/Constitutional:?Nausea?denies.?Vomiting?denies.?Hunger Thirst?denies.?Loss appetite?denies.?Chills?denies.?Fatigue?denies.?Fever?denies.?Night Sweats?denies.?Unexplained weight loss?denies.?Unexplained [...] emors?denies.? * Medical History:? * Surgical History:?right tota l knee replacement 12/06/2018 * Hospitalization/Major Diagno stic Procedure:?Denies Past Hospitalization * Family History:?Mother: dece ased, diagnosed with Family history of arthritis.?Father: , diagnosed with Family history of arthritis.? * Social History:?Tobacco Use:?Tobacco Use/Smoking?Are you a:?nonsmoker ?Additional Findings: Tobacco Non-User?Current non-smoker ?Tobacco use other than smoking?Are you an other tobacco user??No * Medications:?TakingamLODIPin e Besylate 2.5 MG Tablet 1 tablet Orally Once a day Isosorbide Mononitrate Atorvastatin Calcium 40 MG Tablet 1 tablet Orally Once a day Aspir-81 81 MG Tablet Delayed Release 1 tablet Orally Once a day Metoprolol Tartrate 25 MG Tablet 1 tablet with food Orally Twice a day Losartan Potassium 50 MG Tablet 1 tablet Orally Once a day Ammonium Lactate 12 % Cream 1 application Externally Twice a day Augmentin 500-125 MG Tablet 1 tablet Orally Twice a day Taking amLODIPine Besylate 2.5 MG Tablet 1 tablet Orally Once a day Taking Isosorbide Mononitrate Taking Atorvastatin Calcium 40 MG Tablet 1 tablet Orally Once a day Taking Aspir-81 81 MG Tablet Delayed Release 1 tablet Orally Once a day Taking Metoprolol Tartrate 25 MG Tablet 1 tablet with food Orally Twice a day Taking Losartan Potassium 50 MG Tablet 1 tablet Orally Once a day Taking Ammonium Lactate 12 % Cream 1 application Externally Twice a day Taking Augmentin 500-125 MG Tablet 1 tablet Orally Twice a day Not-Taking/PRNPhysical Therapy . . . . 2-3x/week Feldene 20 MG Capsule 1 capsule with food Orally Once a day Crestor 10 MG Tablet 1 tablet Orally Once a day Cephalexin 500 MG Tablet 1 tablet Orally Twice a day Gabapentin 300 MG Capsule 1 capsule Orally Twice a day Medication List reviewed and reconciled with the patientNot- Taking/PRN Physical Therapy . . . . 2-3x/week Not-Taking/PRN Feldene 20 MG Capsule 1 capsule with food Orally Once a day Not-Taking/PRN Crestor 10 MG Tablet 1 tablet Orally Once a day Not-Taking/PRN Cephalexin 500 MG Tablet 1 tablet Orally Twice a day Not-Taking/PRN Gabapentin 300 MG Capsule 1 capsule Orally Twice a day Medication List reviewed and reconciled with the patient * Allergies:?N.K.D.A.yes[Aller gies Verified] Objective: * Vitals:?Ht: 5 ft1in, Wt: 180 , BMI: 34.01, Shoe size: 8, BP: 130/70 mm Hg, Ht-cm: 154.94 cm, Wt-k.65 kg. * Examination: ???Nails: ?NAILS are:?Continued Elongated, overgrown, dystrophic, lytic, greater than 3mm thick, discolored and friable with crumbly malodorous subungual debris, with pain on palpation, TA, T1, T2, T3, T4, T5, T6, T7, T8, T9.?Dermatologic: ?SKIN FINDINGS:?Skin shows sign(s) of, dryness, scaling, in a stocking fashion, no fissure(s) present, B/L.?Vascular: ?DP PULSES (B):?3/4, B/L.?PT PULSES (B):?3/4, B/L.?CAPILLARY FILL TIME:?immediate, all digits, B/L.?TROPHIC CONDITION-TEXTURE/ELASTICITY/TURGOR/HAIR GROWTH (B):?normal, B/L.?Neurological: ?SENSORY:?Neurological exam reveals intact sensorium, pain sensation normal, vibration sensation intact, pinprick sensation is normal in the lower extremities, Pt denies, anesthesia, burning, paresthesia, tingling, B/L.? Assessment: * Assessment: 1.?Tinea unguium - B35.1???2 .?Xerosis of skin - L85.3 (Primary)???Specify :Acute problem, Uncomplicated (3),Rx Management (4)???3.?Pain in right toe(s) - M79.674???4.?Pain in left toe(s) - M79.675??? Plan: * Treatment: * Procedures:?Debride Nail 6-10:?Nail debridement?Due to the clinical pathology outlined in the exam findings, performance of this nail treatment is medically necessary as its management by an unskilled/untrained nonprofessional would put this patients foot and overall health at risk. Therefore, debridement to affected nail(s), as described in exam ( TA, T1, T2, T3, T4, T5, T6, T7, T8, T9), was performed exclusively by the physician of record to reduce/remove overall nail length, girth, thickness, subungual debris, and necrotic tissue, by manual and/or electrical means through the use of a nail nipper and/or dremel-type cork grinder, to a more viable healthy nail plate or bed tissue 6- 10 nails in total. Silver nitrate was used for any petechial bleeding as necessary. Definitive antifungal treatment options, both pharmaceutical and surgical, have been reviewed and discussed with the patient. The patient solely prefers the use of intermittent/as needed professional debridement services for their nail condition and understands the need for additional periodic treatments to maintain effectiveness in symptomatic relief - 10800.? * Procedure Codes:?20906 DEBRI DE NAIL, 6 OR MORE, Modifiers: XS * Preventive Medicine:? ??Counseling:?Discussion:?-13: Office or other [...] have encouraged the patient to call the office.?Xerosis:?The patient was counseled on the diagnosis, potential etiologies, and treatment options for their skin condition. We discussed the risks and benefits of each option from performing no treatment, to utilizing OTC topical skin creams/ointments, to utilizing prescription topical creams/ointments, to utilizing customized compounded topical medications and use of nocturnal occlusion with any/all previously detailed therapies. We discussed the advantages and disadvantages of each possible treatment and importance for adherence to all the recommended therapies for optimum success and avoid potential complications such as open sore/infection/possible hospitalization. We discussed the potential effectiveness of each topical preparation as well as each ones possible side effects and/or patient medication interactions. Patient questions re: use, dosage, successful outcomes, and application consistency were reviewed and the patient verbalized that all answers were clearly understood. , Recom Eucerin or Cerave OTC as directed twice daily.? ??Screening/Special Tests:?Fall Risk?Screening:?No falls in the past year * Follow Up:?2 Months * Images: * Sign off status: Completed true * Provider:Salima Otero DPM Date:? Generated for Terry garcia/Mini/Namita on:?01/17/2025 02:40 PM EST History and Physical Notes * HPI (History of Present Illness) Category Sub-Category Detail Notes Category Not es Painful Nails Pt States Last PCP Visit: Date:: 08/13/2024 Skin problems Nature: dryness , scaling Location: B/L Duration: several days Course: worse Examination Category Sub-Category Detail Notes Category Not es Neurological SENSORY: Neurological exa m reveals intact sensorium, pain sensation normal, vibration sensation intact, pinprick sensation is normal in the lower extremities, Pt denies, anesthesia, burning, paresthesia, tingling, B/L Dermatologic SKIN FINDINGS: Skin shows sign( s) of, dryness, scaling, in a stocking fashion, no fissure(s) present, B/L Vascular DP PULSES (B): 3/4, B/L PT PULSES (B): 3/4, B/L CAPILLARY FILL TIME: immediate, all digi ts, B/L TROPHIC CONDITION-TEXTURE/EL ASTICITY/TURGOR/HAIR GROWTH (B): normal, B/L Nails NAILS are: Continued Elonga bennett, overgrown, dystrophic, lytic, greater than 3mm thick, discolored and friable with crumbly malodorous subungual debris, with pain on palpation, TA, T1, T2, T3, T4, T5, T6, T7, T8, T9
== END 2025-01-17 14:20 | disposition home or self-care (01) ==
LOC: HO.CT 14:19
PROVIDERS: PCP Internal Medicine; Visit Provider Hospitalist
DX: R91.1 Solitary pulmonary nodule (principal)
CPT/HCPCS: 71250

== ENCOUNTER → 2025-01-17 14:20 | Outpatient (BNV) | payer MEDICARE, SELFPAY | PROVIDERS: PCP Internal Medicine; Visit Provider Radiology Diagnostic Radiology | DX: R91.8 Other nonspecific abnormal finding of lung field (principal) | CPT/HCPCS: 71250 ==

== ENCOUNTER 2025-05-22 10:40 | Outpatient (AMB) | payer MEDICARE, SELFPAY ==
--- NOTE | 2025-05-22 09:29 | MHC.PC.OV ---
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 Accompanied by: Self / Same As Patient Allergies latex (LATEX) Allergy (Unknown, Verified 05/22/25 10:59) UNSURE Fall risk assessment: No Falls in past year Last assessed Fall Risk: 05/22/25 Dental Screening Dental Screen Date: 05/22/25 Did you have a dental visit in the last 12 months?: Yes Did you have a dental problem in the last 6 months where you did not have access to dental care?: No HPI HPI Comments History of Present Illness Details The patient is an 85 year old female with a past medical history of CAD, prediabetes, hypertension, hyperlipidemia, GERD, asthma/bronchitis, anemia presenting for follow up. Last visit Dec CV: on amlodipine,losartan, asa, lipitor, imdur, lopressor. Cath with LAD disease with collaterals. Blood pressure is good today. Saw Dr Alicia SWAN in January. Medical optimization. No chest pain. Rsp: Follows with pulm. On trelegy. Follows with Dr Taylor. Pulm nodule Sees Dr Wu. Has doxycycline at home if rosacea flares up. Thinks next appt is july. ROS CONSTITUTIONAL: Denies weight loss, fever and chills. HEENT: Denies changes in vision and hearing. RESPIRATORY: Denies SOB and cough. CV: Denies palpitations and CP GI: Denies abdominal pain, nausea, vomiting and diarrhea. : Denies dysuria and urinary frequency. MSK: Denies new myalgia and joint pain. SKIN: Denies rash and pruritus. NEUROLOGICAL: Denies headache PSYCHIATRIC: Denies recent changes in mood. PHYSICAL EXAM: GENERAL: Alert and oriented x 3. NAD EYES: EOMI. Anicteric. HENT: Moist mucous membranes. No scleral icterus. No cervical lymphadenopathy. LUNGS: Clear to auscultation bilaterally. CARDIOVASCULAR: Regular rate and rhythm. No murmur. No JVD. ABDOMEN: Soft, non-tender +bs EXTREMITIES: No edema. Non-tender. SKIN: No rashes or lesions. Warm. NEUROLOGIC: No focal neurological deficits. CN II-XII grossly intact PSYCHIATRIC: Cooperative. Appropriate mood and affect [facility] Medical History Bronchopneumonia Pulmonary nodule Eczema Allergies Asthma Hiatal hernia Chronic cough Family History Mother No problems noted. Father No problems noted. Social History Housing: House Patient Tobacco Use Status: Never used Tobacco e-Cigarette/Vaping Use: Never Used service: No Current occupational status: retired Cognitive needs: No Hearing needs: No Vision needs: Yes (rx glasses) Questionnaire PHQ-9 Over the last 2 weeks, how often have you been bothered by any of the following problems? 1. Little interest or pleasure in doing things: not at all 2. Feeling down, depressed, or hopeless: not at all 3. Trouble falling or staying asleep, or sleeping too much: not at all 4. Feeling tired or having little energy: not at all 5. Poor appetite or overeating: not at all 6. Feeling bad about yourself - or that you are a failure or have let yourself or your family down: not at all 7. Trouble concentrating on things, such as reading the newspaper or watching television: not at all 8. Moving or speaking so slowly that other people could have noticed. Or the opposite - being so fidgety or restless that you have been moving around a lot more than usual: not at all 9. Thoughts that you would be better off or of hurting yourself in some way: not at all Total score: 0 Depression Screening Interpretation: Negative Depression Screening Done: Yes 88071 - PHQ-9 Billing: Yes Source: Developed by Drs. Zay Quispe, Edith Stokes, Jefferson Infante and colleagues, with an educational david from [employer]. Thrive Questionnaire Date Thrive assessed: 05/22/25 I am a: Patient Within the past 12 months, did the food you bought not last and you didn't have the money to get more?: Never true Within the past 12 months, did you worry whether your food would run out before you got money to buy more?: Never true Do you have trouble paying for medicines?: No Do you have trouble getting transportation to medical appointments?: No Do you have trouble paying your heating and electricity bill?: No Do you have trouble taking care of your child, family member or friend?: No Do you have trouble with day-to-day activities such as bathing, preparing meals, shopping, managing finances, etc.?: No Are you currently unemployed and looking for a job?: No Are you interested in more education?: No THRIVE Score: 0 AUDIT C Alcohol Use Questionnaire (AUDIT-C) 1. How often do you have a drink containing alcohol?: Never 3. How often do you have six or more drinks on one occasion?: Never Total Score: 0 MICHELLE-7 AMB Questionnaire MICHELLE-7 Date MICHELLE - 7 assessed: 05/22/25 Feeling nervous, anxious, or on edge: 0 = Not at all Not being able to stop or control worryin = Not at all Worrying too much about different things: 0 = Not at all Trouble relaxin = Not at all Being so restless that it is hard to sit still: 0 = Not at all Becoming easily annoyed or irritable: 0 = Not at all Feeling afraid as if something awful might happen: 0 = Not at all Total MICHELLE-7 score (0-4 normal; 5-9 mild; 10-14 moderate; 15-21 severe): 0 Source: Developed by Drs. Zay Quispe, Edith Stokes, Jefferson Infante and colleagues, with an educational david from [employer]. Physical exam (Primary Care) Vital Signs: Last Vital Signs Temp 98.3 F 05/22/25 10:56 Pulse 80 05/22/25 10:56 BP 138/76 05/22/25 10:56 Pulse Ox 97 05/22/25 10:56 Oxygen Delivery Method Room Air 05/22/25 10:56 BMI result Body Mass Index 37.5 Tobacco/Smoking Status: Tobacco use Status Patient Tobacco Use Status Never used Tobacco 05/22/25 09:30 e-Cigarette/Vaping Use Never Used 05/22/25 11:04 PHQ-9: PHQ-9 Score PHQ-9: Total score 0 05/25/25 12:03 Depression Screening Interpretation: Negative Thrive Assessment: Date of Thrive Assessment Date Thrive assessed 05/22/25 05/22/25 11:04 Coding Level of Care Code New Pt Level 4 (76325) Diagnoses Coronary artery disease involving [place] coronary artery, unspecified whether angina present, unspecified whether [place] or transplanted heart I25.10 Associated angina: unspecified whether angina present Coronary Disease-Associated Artery/Lesion type: [place] artery [place] vs. transplanted heart: unspecified whether [place] or transplanted heart Prediabetes R73.03 Additional Codes PHQ-9 - 11803 - PHQ-9 Billing: Yes ([id number]) Assessment & Plan Assessment & Plan (1) CAD (coronary artery disease): Code(s): I25.10 - Atherosclerotic heart disease of [place] coronary artery without angina pectoris Category: Medical Qualifiers: Associated angina: unspecified whether angina present Coronary Disease-Associated Artery/Lesion type: [place] artery [place] vs. transplanted heart: unspecified whether [place] or transplanted heart Qualified Code(s): I25.10 - Atherosclerotic heart disease of [place] coronary artery without angina pectoris (2) Prediabetes: Code(s): R73.03 - Prediabetes Category: Medical Plan 85 yo to establish care Past medical, surgical, social reviewed HTN is controlled Breathing is stable Orders: Orders Hemoglobin A1c 05/22/25 I25.10 - Atherosclerotic heart disease of [place] coronary artery without angina pectoris, J45.50 - Severe persistent asthma, uncomplicated, R73.03 - Prediabetes Comprehensive Met. Panel 05/22/25 I25.10 - Atherosclerotic heart disease of [place] coronary artery without angina pectoris, J45.50 - Severe persistent asthma, uncomplicated, R73.03 - Prediabetes LDL Cholesterol Direct 05/22/25 I25.10 - Atherosclerotic heart disease of [place] coronary artery without angina pectoris Medications: New losartan 50 mg PO DAILY 90 tabs 3RF
[2025-05-22 10:56] VITALS: BP 138/76; PULSE 80; TEMP 36.8; O2SAT 97; BMI 37.5
--- OUTSIDE RECORDS SUMMARY | 2025-05-22 12:29 | XMS_ITS | Clinical Summary ---
Author Organization [facility] [employer] Address [address] [place] [address] Phone Care Team Providers Care Broomcorn Seeder Name Role Phone Maximo Vines MD Primary Care Provider [phone] Allergies No known active allergies Medications metoprolol tartrate (LOPRESSOR) 25 mg tablet Take 1 tablet (25 mg total) by mouth 2 (two) times a day. 08/19/20 24 Active losartan (COZAAR) 50 mg tablet Take 1 Tablet by mouth at bedtime. Active aspirin 81 mg EC tablet Take 81 mg by mouth daily. Active acetaminophen (TYLENOL) 500 mg tablet Take 1 tablet (500 mg total) by mouth every 6 (six) hours if needed. Active atorvastatin (LIPITOR) 40 mg tablet TAKE 1 TABLET BY MOUTH EVERY DAY 90 tablet 3 11/25/20 24 Active doxycycline (VIBRAMYCIN) 100 mg capsule Take 1 capsule (100 mg total) by mouth 2 (two) times a day. for 10 days 01/24/20 25 Active isosorbide mononitrate (IMDUR) 60 mg 24 hr tablet TAKE 1 TABLET BY MOUTH EVERY DAY 90 tablet 2 04/24/20 25 Active amLODIPine (NORVASC) 2.5 mg tabletIndication s:Essential (primary) hypertension TAKE 1 TABLET BY MOUTH EVERY DAY 90 tablet 3 04/30/20 25 Active isosorbide mononitrate (IMDUR) 60 mg 24 hr tablet Take 1 tablet (60 mg total) by mouth 1 (one) time each day. 08/01/20 24 025 Discontinued amLODIPine (NORVASC) 2.5 mg tablet Take 1 tablet (2.5 mg total) by mouth 1 (one) time each day. 05/23/20 24 025 Discontinued Active Problems Problem Noted Date Diagnosed Date Coronary artery disease 06/17/2022 Overview (11/01/2024): Last Assessment & Plan: Patient has history of HI in the past as noted on previous [...] will hold off on any additional testing. 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 Patient has had no anginal symptoms has not outstripped her collaterals send no symptoms of chest pain discomfort or shortness of breath. Risk factor modifications in place. I again went over with her the findings on her diagnostic catheterization I went over with him the collateralization the need to contact us if she does have stripper collaterals and develops chest discomfort otherwise continue present medical management and continued present risk factor modification. She is lost her primary care physician I told her to call us if she runs short of medication I wanted to make sure that she maintains her present level of medical therapy which seems to be adequately controlling her symptoms The above note was prepared with the help of voice recognition software. Please excuse any grammatical or spelling errors that may have occurred Hyperlipidemia 06/17/2022 Overview (11/01/2024): Last Assessment & Plan: His last LDL cholesterol was 63. This is at goal. Continue with atorvastatin as prescribed. Fatigue 06/15/2022 Dyspnea 04/29/2022 Overview (11/01/2024): Last Assessment & Plan: Suspect dyspnea is all secondary to diastolic dysfunction Inferior myocardial infarction (CMS/HCC V24, CMS /HCC V28) 04/29/2022 Overview (11/01/2024): Last Assessment & Plan: [...] Sign Reading Time Taken Comments Blood Pressure 136/68 01/29/2025 10:48 AM EST Pulse 77 01/29/2025 10:48 AM EST Temperature - - Respiratory Rate - - Oxygen Saturation 99% 01/29/2025 10:48 AM EST Inhaled Oxygen Concentration - - Weight 86.2 kg (190 lb) 01/29/2025 10:48 AM EST Height 152.4 cm (5') 01/29/2025 10:48 AM EST Body Mass Index 37.11 01/29/2025 10:48 AM EST Plan of Treatment Health Maintenance Due Date Last Done Comments DTaP,Tdap,and Td Vaccines (1 - Tdap) 1959 Cholesterol Screening (Lipid Panel) 11/06/2022 Depression Screening 11/06/2022 Falls Risk Assessment 11/06/2022 Hypertension/CHF/CAD Annual BMP Blood Test 11/06/2022 Osteoporosis Screening (Bone Density Screening) 11/06/2022 Social Influencers of Health Screening 11/06/2022 Medicare Annual Wellness Visit 05/03/2024 05/03/2023 COVID-19 Vaccine ( season) 2024 09/19/2022, 03/09/2022, 09/02/2021, Additional history exists Influenza Vaccine (Season Ended) 2025 08/30/2023, 09/19/2022, 09/02/2021, Additional history exists Zoster Vaccines Completed 08/29/2019, 05/10/2019 Pneumococcal Vaccine: 50+ Years Completed 06/25/2020, 05/10/2019, 08/17/2015 RSV Immunization Adult Patients Completed 12/15/2023 HIB Vaccines Aged Out No longer eligi [...] age to complete this topic Meningococcal B Vaccine Aged Out No l onger eligible based on patient's age to complete this topic RSV Immunization Patients Under 20 months Aged Out No longer eligible based on patient's age to complete this topic Varicella Vaccines Aged Out No longer eligible based on patient's age to complete this topic Insurance MEDICARE [facility] Care Teams Broomcorn Seeder Relationship Specialty Start Date End Date Maximo Vines MD [address] [place] [address] Dr Wilmer MA PCP - General Internal Medicine 03/21/22
== END 2025-05-22 11:20 | disposition home or self-care (01) ==
LOC: HO.HMCHD 10:40
PROVIDERS: PCP Internal Medicine; Visit Provider Internal Medicine
DX: I25.10 Atherosclerotic heart disease of native coronary artery without angina pectoris (principal); R73.03 Prediabetes

== ENCOUNTER → 2025-05-22 10:40 | Outpatient (BNVA) | payer MEDICARE, SELFPAY | PROVIDERS: PCP Internal Medicine; Visit Provider Internal Medicine | DX: I25.10 Atherosclerotic heart disease of native coronary artery without angina pectoris (principal); R73.03 Prediabetes; I10 Essential (primary) hypertension; J45.909 Unspecified asthma, uncomplicated; Z79.82 Long term (current) use of aspirin; Z79.899 Other long term (current) drug therapy; Z13.31 Encounter for screening for depression; Z13.30 Encounter for screening examination for mental health and behavioral disorders, unspecified | CPT/HCPCS: 96127; 99202 ==

== ENCOUNTER 2025-05-22 11:24 | Outpatient (REF) | payer MEDICARE, SELFPAY ==
[2025-05-22 13:40] LABS: Estimated Average Glucose 134 mg/dL; Hemoglobin A1c % 6.3 % (<6.0)
[2025-05-22 13:51] LABS: Alanine Aminotransferase 35 U/L (0-31); Albumin Level 4.8 g/dL (3.5-5.0); Alkaline Phosphatase 66 U/L (39-117); Anion Gap 12 (12-20); Aspartate Amino Transferase 31 U/L (5-31); Bilirubin Total 2.3 mg/dL (0.0-1.0); Blood Urea Nitrogen 12 mg/dL (9-16); Calcium 9.3 mg/dL (8.4-10.2); Carbon Dioxide 26 mmol/L (22-29); Chloride 107 mmol/L (96-108); Estimated Glomerular Filt Rate > 60; Glucose Random 114 mg/dL (60-115); Potassium 4.4 mmol/L (3.3-5.1); Sodium 141 mmol/L (135-145); Total Protein 7.3 g/dL (6.5-8.0)
[2025-05-23 09:58] LABS: LDL Cholesterol Direct 104 mg/dL (<100)
== END 2025-05-22 11:25 | disposition home or self-care (01) ==
LOC: HO.10HDL 11:24
PROVIDERS: Visit Provider Internal Medicine
DX: I25.10 Atherosclerotic heart disease of native coronary artery without angina pectoris (principal); J45.50 Severe persistent asthma, uncomplicated; R73.03 Prediabetes
CPT/HCPCS: 36415; 80053; 83036; 83721

== ENCOUNTER 2025-06-16 18:24 | Emergency (ER) | payer MEDICARE, SELFPAY ==
--- NOTE | ~2025-06-16 | CT_ITS ---
CLINICAL HISTORY: ACUTE ONSET OF DIZZINESS CT head without contrast Comparison: CT - CT HEAD/BRAIN WO IV CON - 06/16/25 19:05 EDT Findings: No intra-axial mass, midline shift, hydrocephalus, or acute hemorrhage. Nonspecific white matter hypodensities are present with mild volume loss. The visualized paranasal sinuses and mastoid air cells are normal. The orbits are unremarkable. No skull fracture. IMPRESSION: 1. No acute intracranial findings. This document has been electronically signed by: Jim Cuevas MD, PHD on 06/17/2025 00:07:08
[2025-06-16 18:35] VITALS: BP 140/82; BP 143/56; PULSE 62; PULSE 74; RESP 12; TEMP 36.4; O2SAT 97; O2SAT 98; BMI 38.3
--- NOTE | 2025-06-16 18:42 | ED.DIZZY ---
HPI - Dizziness General Chief Complaint: Dizziness Stated Complaint: Dizziness, Nausea x 2 days, H/a, Blurred Vision Time Seen by Provider: 06/16/25 18:35 Source: patient Mode of arrival: EMS Limitations: no limitations History of Present Illness ED Provider: HPI Narrative: Patient's history of asthma coronary artery disease, hypotension otherwise healthy noticed sudden onset of vertiginous feeling at 14:00 today followed by headache and nausea vomited few times in the ER patient had similar episode 2 days ago no history of vertigo in the past no ear pain no tinnitus no fever no chills no tremors no any focal weakness Related Data Home Medications ?Medication ?Instructions ?Recorded ?Confirmed aspirin 81 mg tablet,delayed 81 mg PO DAILY 02/01/23 release isosorbide mononitrate 60 mg 60 mg PO DAILY 02/01/23 tablet,extended release 24 hr metoprolol tartrate 25 mg tablet 25 mg PO BID 02/01/23 atorvastatin 20 mg tablet 40 mg PO DAILY 05/31/23 amlodipine 2.5 mg tablet 2.5 mg PO DAILY 08/30/24 Previous Rx's ?Medication ?Instructions ?Recorded doxycycline hyclate 100 mg capsule 100 mg PO BID 10 days #20 caps 01/24/25 fluticasone 232 mcg-salmeterol 14 1 inh inhalation Q12H 30 days #1 ea 05/08/25 mcg/actuation breath activated powdr (AirDuo RespiClick) fluticasone 250 mcg-salmeterol 50 1 inh inhalation Q12H 30 days #60 05/09/25 mcg/dose blistr powdr for ea inhalation (Wixela Inhub) losartan 50 mg tablet 50 mg PO DAILY #90 tabs 05/22/25 meclizine 12.5 mg tablet 12.5 mg PO TID PRN dizziness #20 06/17/25 tabs Allergies Allergy/AdvReac Type Severity Reaction Status Date / Time latex (LATEX) Allergy Unknown UNSURE Verified 06/16/25 18:56 Review of Systems Review of Systems: Yes all other systems are reviewed and are negative [facility] Past Medical History Medical History Bronchopneumonia Pulmonary nodule Eczema Allergies Asthma Hiatal hernia Chronic cough Family History Family History Mother No problems noted. Father No problems noted. Social History Social History Housing: House Patient Tobacco Use Status: Never used Tobacco e-Cigarette/Vaping Use: Never Used Advance Directives: No Advance Directives Information Provided: Yes Do you have a plan to hurt others: No Plan service: No Current occupational status: retired Cognitive needs: No Hearing needs: No Vision needs: Yes (rx glasses) Physical Exam Vital Signs: Vital Signs: Last Vital Signs Temp 97.6 F 06/17/25 00:00 Pulse 64 06/17/25 00:00 Resp 16 06/17/25 00:00 BP 124/61 06/17/25 00:00 Pulse Ox 97 06/17/25 00:00 O2 Del Method Room Air 06/17/25 00:00 BMI result Body Mass Index 38.3 Appearance: Alert. Oriented X3. No acute distress. Eyes: PERRLA, horizontal nystagmus with rapid movement to the right ENT: Pharynx normal. Oral Mucosa moist Neck: Normal inspection. Neck supple. CVS: Normal heart rate and rhythm. Pulses normal. Respiratory: No respiratory distress. Equal air entry bilateral, no wheezing/rales/rhonchi Abdomen: Soft and nontender. Bowel sounds are present, no mass palpable, no CVA tenderness Skin: Skin warm and dry. Normal skin color. Normal skin turgor. Extremities: No lower extremity edema. No calf tenderness Neuro: Oriented X 3. No motor deficit. No sensory deficit.No cerebellar signs , cranial nerves II-XII intact NIH Stroke Scale Internal: Initial- Upon Arrival Level of Consciousness: Alert Level of Consciousness Questions: Answers both questions correctly Level of Consciousness Commands: Performs both tasks correctly Best Gaze: Normal Visual: No visual loss Facial Palsy: Normal Motor Arm (Right): No drift Motor Arm (Left): No drift Motor Leg (Right): No drift Motor Leg (Left): No drift Limb Ataxia: Absent Sensory: Normal Best Language: No aphasia Dysarthia: Normal Extinction and Inattention: No abnormality Score: 0 Medications Administered Discontinued Medications Generic Name Dose Route Start Last Admin Trade Name Freq PRN Reason Stop Dose Admin Sodium Chloride 1,000 mls @ 999 mls/hr 06/16/25 18:44 06/16/25 20:55 Ns IV 06/16/25 19:44 Infused .Q1H1M ONE Infusion Lorazepam 1 mg 06/16/25 20:09 06/16/25 20:13 Lorazepam 1 Mg Tablet PO 06/16/25 20:10 1 mg ONCE ONE Administration Meclizine HCl 25 mg 06/16/25 20:09 06/16/25 20:13 Meclizine Hcl 25 Mg Tablet PO 06/16/25 20:10 25 mg ONCE ONE Administration Ondansetron HCl 4 mg 06/16/25 18:45 06/16/25 19:08 Ondansetron Hcl 4 Mg/2 Ml Vial IVPUSH 06/16/25 18:46 4 mg ONCE ONE Administration Medical Decision Making Medical Decision Making [facility] Narrative: Patient with benign positional vertigo CT scan negative for stroke no signs of cerebellar involvement patient's felt much better after benzo and meclizine able to walk to the bathroom will discharge patient home on meclizine patient does not want take any benzos Differential Diagnosis Differential Diagnoses: The differential diagnosis associated with the presentation includes Vertigo/cerebellar stroke/space-occupying lesion brain Admission/Observation Consideration of admission/observation: Escalation of care including admission/observation considered Lab Data [facility] Lab Attestation statement: I reviewed the patient's lab results. 06/16/25 19:03 06/16/25 19:03 Labs: Lab Results 06/16/25 06/16/25 Range/Units 19:03 21:59 WBC 7.6 (4.8-10.8) X10*3/uL RBC 4.11 L (4.20-5.50) X10*6/uL Hgb 13.0 (12.0-16.0) g/dl Hct 37.6 (37.0-47.0) % MCV 91.5 (80.0-98.0) fL MCH 31.6 (27.0-33.0) pg MCHC 34.6 (31.0-35.0) g/dl RDW 13.3 (11.0-16.0) % Plt Count 233 (160-400) X10*3/uL MPV 8.9 L (9.4-12.3) fL Immature Gran % (Auto) 0.3 (0.0-0.4) % Neut % (Auto) 72.0 (45-73) % Lymph % (Auto) 16.4 L (20-40) % [place] % (Auto) 5.7 (2-11) % Eos % (Auto) 4.7 H (0-4) % Baso % (Auto) 0.9 (0-2) % Lymph # (Auto) 1.2 (1.2-4.9) X10*3/uL [place] # (Auto) 0.4 (0.1-1.2) X10*3/uL Eos # (Auto) 0.4 (0.0-0.4) X10*3/uL Baso # (Auto) 0.1 (0.0-0.2) X10*3/uL Abs Immat Gran (auto) 0.02 (0.00-0.03) X10*3/uL Absolute Neuts (auto) 5.5 (2.0-8.3) x10*3/uL Absolute Nucleated RBC 0.000 (0.0-0.012) X10*3/uL Nucleated RBC % (auto) 0.0 (0.0-0.2) /100WBC Sodium 140 (135-145) mmol/L Potassium 4.5 (3.3-5.1) mmol/L Chloride 106 (96-108) mmol/L Carbon Dioxide 23 (22-29) mmol/L Anion Gap 16 (12-20) BUN 12 (9-16) mg/dL Creatinine 0.65 (0.5-1.4) mg/dL Estim Creat Clear Calc 65.0 Estimated GFR > 60 Random Glucose 137 H (60-115) mg/dL Calcium 8.9 (8.4-10.2) mg/dL Total Bilirubin 2.3 H (0.0-1.0) mg/dL AST 35 H (5-31) U/L ALT 34 H (0-31) U/L Alkaline Phosphatase 66 (39-117) U/L Troponin I High Sens < 2.7 (<3.5-17.0) ng/L Total Protein 7.0 (6.5-8.0) g/dL Albumin 4.5 (3.5-5.0) g/dL Urine Color Yellow Urine Appearance Clear Urine pH 6.5 (5.0-9.0) Ur Specific [place] 1.010 (1.005-1.025) Urine Protein Negative (Neg-Trace) mg/dL Urine Glucose (UA) Negative (Negative) mg/dL Urine Ketones Negative (Negative) mg/dL Urine Blood Negative (Negative) Urine Nitrite Negative (Negative) Ur Leukocyte Esterase Moderate (2+) H (Negative) Urine RBC 0-2 (0-2) /HPF Urine WBC 11-20 H (0-5) /HPF Ur Squamous Epith Cells 0-2 (0-2) /HPF Urine Bacteria None Seen (None Seen) Hyaline Casts 0-2 (0-2) /LPF Independent Interpretation I performed an independent interpretation of an: EKG and CT Scan Interpretation: Normal sinus rhythm heart rate 64 beats per minute normal interval normal axis no acute STT wave changes no acute ischemia Critical Care Time Critical Care Time Critical Care Time: Yes Total Critical Care Time: 35 Attestation: Time is exclusive of separately billable procedures. Time includes: direct patient care, patient reassessment, coordination of patient care, interpretation of data (laboratory data, pulse oximetry, arterial blood gases and chest xrays), review of patient's medical records, medical consultation and documentation of patient care. Procedures excluded from critical care time: central intravenous line placement and electrocardiography. Discharge Plan Discharge Clinical Impression: Benign paroxysmal positional vertigo Patient Disposition: Home, Self-Care Instructions: Benign Paroxysmal Positional Vertigo (DC) Additional Instructions: Care and cautions as advised Take meclizine 1 tablet every 8 hours as needed for dizziness Follow up with your PCP Prescriptions: New meclizine 12.5 mg tablet 12.5 mg PO TID PRN (Reason: dizziness) Qty: 20 0RF No Action doxycycline hyclate 100 mg capsule 100 mg PO BID 10 Days Qty: 20 0RF fluticasone propion-salmeterol [AirDuo RespiClick] 232-14 mcg/actuation aerosol powdr breath activated 1 inh inhalation Q12H 30 Days Qty: 1 11RF fluticasone propion-salmeterol [Wixela Inhub] 250-50 mcg/dose blister with device 1 inh inhalation Q12H 30 Days Qty: 60 11RF aspirin 81 mg tablet,delayed release (DR/EC) 81 mg PO DAILY metoprolol tartrate 25 mg tablet 25 mg PO BID isosorbide mononitrate 60 mg tablet extended release 24 hr 60 mg PO DAILY atorvastatin 20 mg tablet 40 mg PO DAILY losartan 50 mg tablet 50 mg PO DAILY Qty: 90 3RF amlodipine 2.5 mg tablet 2.5 mg PO DAILY Print Language: Mohawk
--- NOTE | 2025-06-16 18:45 | ECG_ITS ---
Test Reason : DIZZINESS Blood Pressure : */* mmHG Vent. Rate : 64 BPM Atrial Rate : 64 BPM P-R Int : 132 ms QRS Dur : 74 ms QT Int : 432 ms P-R-T Axes : 51 -13 9 degrees QTcB Int : 445 ms Normal sinus rhythm Normal ECG When compared with ECG of 20-Sep-2016 17:11, Vent. rate has decreased by 38 bpm Referred By: Rodrigo Hinkle Electronically Signed By: Norman Coffman
[2025-06-16 19:08] LABS: MANUAL DIFF FLAG NO
[2025-06-16 19:09] LABS: Hematocrit 37.6 % (37.0-47.0); Hemoglobin 13.0 g/dl (12.0-16.0); Imm Gran Abs Auto 0.02 X10*3/uL (0.00-0.03); Imm Gran Pct Auto 0.3 % (0.0-0.4); Lymphocytes Absolute Auto 1.2 X10*3/uL (1.2-4.9); Mean Corpuscular HGB Conc 34.6 g/dl (31.0-35.0); Mean Corpuscular Hemoglobin 31.6 pg (27.0-33.0); Mean Corpuscular Volume 91.5 fL (80.0-98.0); NRBC Abs Auto 0.000 X10*3/uL (0.0-0.012); NRBC Pct Auto 0.0 /100WBC (0.0-0.2); Platelet Count 233 X10*3/uL (160-400); Red Blood Count 4.11 X10*6/uL (4.20-5.50); White Blood Count 7.6 X10*3/uL (4.8-10.8)
[2025-06-16 19:23] LABS: Alanine Aminotransferase 34 U/L (0-31); Albumin Level 4.5 g/dL (3.5-5.0); Alkaline Phosphatase 66 U/L (39-117); Anion Gap 16 (12-20); Aspartate Amino Transferase 35 U/L (5-31); Blood Urea Nitrogen 12 mg/dL (9-16); Calcium 8.9 mg/dL (8.4-10.2); Carbon Dioxide 23 mmol/L (22-29); Chloride 106 mmol/L (96-108); Creatinine Clr Calc Pharmacy 65.0; Estimated Glomerular Filt Rate > 60; Potassium 4.5 mmol/L (3.3-5.1); Sodium 140 mmol/L (135-145); Total Protein 7.0 g/dL (6.5-8.0)
--- OUTSIDE RECORDS SUMMARY | 2025-06-16 19:23 | XMS_ITS | Data Portability ---
Author Organization FERNIE Selvin Bowman [facility], [facility] Address [address] [place] [address] Care Team Providers Care Mineral Surveying Technician Name Role Phone RAMON HERNANDEZ Primary Care Provider Assessment Encounter Date Assessment Date Assessment LastModified [...] X-rays reviewed in the office today on [facility] PACS: Weight bearing AP of Both knees, Steinberg view of Both Knees, [place] View of Both Knees, and Lateral of the Left knee; demonstrate Severe end-stage osteoarthritis of the Left knee. There is hcby-wk-kems articulation laterally, subchondral sclerosis, osteophyte formation. There [...] I recommended that she follow-up with her nutrition specialist at [facility] she obtained provisional medical clearance. Once she has been medically cleared for surgical intervention she will call us and we will proceed with skin doing for total knee arthroplasty. I attempted to answer all of her questions today in the office. lacy Not available 06/21/2024 16:48:49 Plan of Treatment Reminders Order Date Submit Date Provider Last Modified By Organization Details Last Modified Time Details Appointments None recorde d. Lab None recorde d. Referral None recorde d. Procedures None recorde d. Surgeries None recorde d. Imaging XR, knee, 4 or more view - rm 206 R knee pain, wants sx 024 06/21/20 24 [id number] [facility] Office, [address] [facility], [facility] [address], [place], [address], 4 09:37:34 Medication Orders None recorde d. Patient TargetsNo targets recorded. Patient InstructionsNo instructions recorded. Reason for Referral None Reported. Problems Name Problem SNOMED Code Status Onset Date Resolution Date Notes Provider Name and Address Organization Details Recorded Time No complaints 201098605 Active Status : 'I'; Not Available Count includes the [facility] 4 09:12:53 Problem Notes None recorded. Medical Equipment None Reported. Allergies Allergen ID Allergen Name Allergen Category Reaction Reaction Severity Criticality Documentation Date Start Date Code Code System Note Provider Name and Address Organization Details Recorded Time 84969 latex environme nt,medica tion Not available Not available Not available 01/29/20242016 76664 91 RxNorm Not Available Count includes the [facility] 4 13:10:48 Medications Name Sig Start [...] Updated DateTime 06/21/2024 152.4 cm 37.1 kg/m2 92003.55 g NANCY HLILIARD [place] - [facility] 06/21/2024 13:50:15 Social History None recorded. Functional Status None recorded. Mental Status None recorded. Family History Nothing Reported. Medical History No medical history recorded. Gynecological HistoryNo gynecological history recorded. Obstetrics History GPAL:G 0 P 0 0 0 0 Past Encounters Encounter ID Performer Location Encounter Start Date Encounter Closed Date Diagnosis/Indication Diagnosis SNOMED-CT Code Diagnosis ICD10 Code Diagnosis Note [id number] [facility] [address] [place] [address] 06/21/2024 13:35:03 07/11/2024 09:37:33 Pain of right knee joint 5585489892 00015 M25.561 Health Concerns Section Related Observation LastModified by Organization Detai ls LastModified Time None Recorded Concern Status LastModified by Organization Details LastModified Time None Recorded Advance Directives Directive None Recorded Payers Insurance Date Sequence Insurance Name Policy Number Policy Negron Covered Member ID Negron Member ID Guarantor Name 06/21/2024 1 [place] [employer] Julita Pimentel [id number] Julita Pimentel 07/11/2024 2 [place] [id number] Julita Pimentel [id number] Julita Pimentel OBGyn Episode No OBEpisode recorded.
--- OUTSIDE RECORDS SUMMARY | 2025-06-16 19:23 | XMS_ITS | Patient Health Record ---
Author Organization [facility] Address [address] [facility] [place] [address] Care Team Providers Care Resident Services Supervisor Name Role Phone Yanely Otero Unavailable [phone] Allergies No Known Allergies Reason For Referral No Information Medications Medication SIG (Take, Route, Frequency, Duration) Notes Start Date End Date Status Isosorbide Mononitrate Active Gabapentin 300 MG 1 capsule Orally Twi ce a day Not-Taking Atorvastatin Calcium 40 MG 1 tablet Orally Once a day; Duration: 30 days Active Crestor 10 MG 1 tablet Orally Once a day; Duration: 30 day(s) Not-Taking amLODIPine Besylate 2.5 MG 1 tablet Orally Once a day Active Cephalexin 500 MG 1 tablet Orally Twic e a day; Duration: 5 days Not-Taking Physical Therapy . . . 2-3x/week; Duration: 3-4 weeks 09/27/2023 Not-Taking Feldene 20 MG 1 capsule with food Orally Once a day; Duration: 14 days 09/22/2021 Not-Taking Augmentin 500-125 MG 1 tablet Orally Twi ce a day; Duration: 7 days 02/12/2019 Active Losartan Potassium 50 MG 1 tablet Orally Once a day Active Ammonium Lactate 12 % 1 application Externally Twice a day; Duration: 30 days Active Aspir-81 81 MG 1 tablet Orally Once a day; Duration: 30 day(s) Active Metoprolol Tartrate 25 MG 1 tablet with food Orally Twice a day Active Immunizations Vaccine Route Administration Date Status Comme nts Influenza Unknown 07/28/2024 Administered COVID-19 Pfizer BioNTech Vaccine Unknown 09/01/2021 Administered [...] Are you an other tobacco user? No AUDIT-C (Standard) Question Answer Notes Did you have a drink containing alcohol in the p ast year? No Points 0 Interpretation Negative Problems No Known Problems Vital Signs Blood pressure diastolic 70 mm Hg 06/06/2025 Height 5 ft1in in 06/06/2025 Blood pressure systolic 127 mm Hg 06/06/2025 Weight 180 lbs 06/06/2025 BMI 34.01 kg/m2 06/06/2025 Encounters Encounter Location Date Provider Diagnosis [address] [address] 06/26/2024 Yanely Perica Tinea unguium B35.1 ; Pain in right toe(s) M79.674 and Pain in left toe(s) M79.[address] [address] 09/06/2024 Yanely Perica Tinea unguium B35.1 ; Pain in right toe(s) M79.674 and Pain in left toe(s) M79.[address] [address] 09/24/2024 Yanely Perica Ingrown nail L60.0 and Cellulitis of toe of left foot L03.[address] [address] 11/13/2024 Yanely Perica Tinea unguium B35.1 ; Xerosis of skin L85.3 ; Pain in right toe(s) M79.674 and Pain in left toe(s) M79.[address] [address] 01/24/2025 Yanely Perica Tinea unguium B35.1 ; Xerosis of skin L85.3 ; Pain in right toe(s) M79.674 and Pain in left toe(s) M79.[address] [address] 04/01/2025 Yanely Perica Pain in right toe(s) M79.674 ; Onychomycosis B35.1 and Pain in left toe(s) M79.[address] [address] 06/06/2025 Yanely Perica Pain in right toe(s) M79.674 ; Onychomycosis B35.1 and Pain in left toe(s) M79.675 [facility] [address] [address] 09/20/2024 Yanely Perica Cellulitis of right toe L03.031 Assessments Encounter Date Diagnosis (ICD Code) Assessment Notes Treatment Notes Treatment Clinical Notes Section Notes 06/26/2024 Tinea unguium (ICD-10 - B35.1) 09/06/2024 Tinea unguium (ICD-10 - B35.1) 09/20/2024 Cellulitis of right toe (ICD-10 - L03.031) 09/24/2024 Ingrown nail (ICD-10 - L60.0) 09/24/2024 Cellulitis of toe of left foot (ICD-10 - L03.032) 11/13/2024 Tinea unguium (ICD-10 - B35.1) 11/13/2024 Xerosis of skin (ICD-10 - L85.3) 01/24/2025 Tinea unguium (ICD-10 - B35.1) 01/24/2025 Xerosis of skin (ICD-10 - L85.3) 04/01/2025 Pain in right toe(s) (ICD-10 - M79.674) 06/06/2025 Pain in right toe(s) (ICD-10 - M79.674) 06/06/2025 Onychomycosis (ICD-10 - B35.1) 04/01/2025 Onychomycosis (ICD-10 - B35.1) 01/24/2025 Pain in right toe(s) (ICD-10 - M79.674) 11/13/2024 Pain in right toe(s) (ICD-10 - M79.674) 09/06/2024 Pain in right toe(s) (ICD-10 - M79.674) 06/26/2024 Pain in right toe(s) (ICD-10 - M79.674) 06/26/2024 Pain in left toe(s) (ICD-10 - M79.675) 09/06/2024 Pain in left toe(s) (ICD-10 - M79.675) 11/13/2024 Pain in left toe(s) (ICD-10 - M79.675) 01/24/2025 Pain in left toe(s) (ICD-10 - M79.675) 06/06/2025 Pain in left toe(s) (ICD-10 - M79.675) 04/01/2025 Pain in left toe(s) (ICD-10 - M79.675) Plan Of Treatment Pending Test Test Name Order Date X ray : Foot, right 3V 09/22/2021 X ray : Foot, right 3V 09/27/2023 Next Appt Details Provider Name:Yanely lambert, 08/12/2025 11:30:00 AM, [address] [place] [address], [phone], Provider Name:Yanely lambert, 10/15/2025 11:00:00 AM, [address] [place] [address], [phone], Insurance Providers Payer Name Payer Address Payer Phone Subscriber Number Group Number Insured Name Patient Relationship to Insured Coverage Start Date Coverage End Date Medicare National Govt Sv[employer] [address] [place] [address] [id number] Julita Pimentel Self - patient is the insured Med[employer] Blue Shield [address] [place] [address] [id number] Julita Pimentel Self - patient is the insured Medical (General) History Medical History History ICD Code Arthritis Back,Hip,and Knee pain CAD (Cholesterol) High blood pressure Psoriasis/eczema Joint implants/screws Surgical History Surgery Date(Month/Year) 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
[2025-06-16 19:30] LABS: Troponin-I High Sensitivity < 2.7 ng/L (<3.5-17.0)
--- NOTE | 2025-06-16 20:16 | PC.NURSE ---
medicated pt per MAR. family at bedside.
--- NOTE | 2025-06-16 20:49 | PC.NURSE ---
pt on at bedside; Jayesh Pimentel, asks that we call him with any news. contact information [phone]. information given to registration.
[2025-06-16 20:53] VITALS: BP 134/57
[2025-06-16 21:06] VITALS: BP 128/57; PULSE 63; RESP 18; TEMP 36.6; O2SAT 96
[2025-06-16 22:00] VITALS: BP 117/59; PULSE 69; RESP 14; TEMP 36.7; O2SAT 95
[2025-06-16 22:10] LABS: Appearance Urine Clear; Glucose Urine UA Negative (Negative); PH 6.5 (5.0-9.0); Specific Gravity - Urine 1.010 (1.005-1.025); UMIC TRIGGER UACC YES
[2025-06-16 22:13] LABS: UACC Culture Trigger YES
--- NOTE | 2025-06-16 22:55 | PC.NURSE ---
pt ambulated to bathroom with this RN, stand by assist, reports dizziness has improved but is still there. pt does not feel she is at baseline. provider advised.
[2025-06-17] VITALS: BP 124/61; PULSE 64; RESP 16; TEMP 36.4; O2SAT 97
[2025-06-17 02:00] VITALS: BP 139/61; PULSE 67; RESP 16; TEMP 36.4; O2SAT 97
--- NOTE | 2025-06-17 05:19 | PC.NURSE ---
Called pt Ilia per pt request, he will be here to pick her up within the hour, Pt advised.
[2025-06-17 05:50] VITALS: BP 132/69; PULSE 68; RESP 16; TEMP 36.5; O2SAT 97
[2025-06-17 06:02] VITALS: BP 132/69; PULSE 68; RESP 16; TEMP 36.5; O2SAT 97
== END 2025-06-17 06:03 | disposition home or self-care (01) ==
PROVIDERS: Emergency Provider Internal Medicine; PCP Internal Medicine
DX: H81.10 Benign paroxysmal vertigo, unspecified ear (principal); R51.9 Headache, unspecified; R11.2 Nausea with vomiting, unspecified; R29.700 NIHSS score 0; J45.909 Unspecified asthma, uncomplicated; Z79.82 Long term (current) use of aspirin; Z79.02 Long term (current) use of antithrombotics/antiplatelets; Z79.899 Other long term (current) drug therapy
CPT/HCPCS: 36415; 70450; 80053; 81001; 84484; 85025; 87086; 93005; 96361; 96374; 99284; 99285; J2405

== ENCOUNTER → 2025-06-16 18:45 | Outpatient (BNV) | payer MEDICARE, SELFPAY | PROVIDERS: Emergency Provider Internal Medicine; PCP Internal Medicine; Visit Provider Internal Medicine Cardiovascular Disease | DX: R42 Dizziness and giddiness (principal) | CPT/HCPCS: 93010 ==

== ENCOUNTER → 2025-06-16 22:09 | Outpatient (BNV) | payer MEDICARE, SELFPAY | PROVIDERS: Emergency Provider Internal Medicine; PCP Internal Medicine; Visit Provider General Practice | DX: R42 Dizziness and giddiness (principal) | CPT/HCPCS: 70450 ==

== ENCOUNTER 2025-07-03 09:55 | Outpatient (AMB) | payer MEDICARE, SELFPAY ==
[2025-07-03 10:09] VITALS: BP 130/80; PULSE 82; BMI 37.2
--- NOTE | 2025-07-03 10:09 | MHC.OFFVIS ---
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 Account Adjuster Required: No Accompanied by: Spouse Allergies latex (LATEX) Allergy (Unknown, Verified 06/16/25 18:56) UNSURE Medication List - Last Reconciled 07/03/25 by Arsenio Cordon MD amlodipine 2.5 mg PO DAILY aspirin 81 mg PO DAILY atorvastatin 40 mg PO DAILY fluticasone propion-salmeterol 250-50 mcg/dose (Wixela Inhub) 1 inh inhalation Q12H 30 days isosorbide mononitrate ER 60 mg PO DAILY losartan 50 mg PO DAILY metoprolol tartrate 25 mg PO BID HPI Comments Details: Thank you for referring Julita in cardiology consultation today for 2nd opinion and follow-up locally for coronary artery disease. She is a pleasant 85-year-old female who underwent a cardiac catheterization in 2021 for abnormal stress test symptoms of exertional shortness of breath. Patient that time had normal LV ejection fraction with mild LVH with wall motion abnormality and abnormal nuclear stress test. 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 She was then managed medically with uptitration of medical therapy. Since then she has remained more or less stable. She says her main limitation in his due to left knee issues which prevents her from walking too long distance and she does get short of breath especially going up and down a flight of stairs. Her predominantly bothered by her left knee. She underwent a right knee replacement in the past and for the left knee replacement she was advised she will need repeat nuclear study and she did not want to do it. Currently she has no new symptoms. Takes all her medications. Last LDL is 104 mg/dL on current high-intensity statin therapy. She denies any orthopnea, PND, leg edema. She denies any prolonged palpitation irregular heartbeat. [facility] Medical History Bronchopneumonia Pulmonary nodule Eczema Allergies Asthma Hiatal hernia Chronic cough Family History Mother No problems noted. Father No problems noted. Social History Housing: House Patient Tobacco Use Status: Never used Tobacco e-Cigarette/Vaping Use: Never Used service: No Current occupational status: retired Cognitive needs: No Hearing needs: No Vision needs: Yes (rx glasses) Review of Systems Const Denies chills, Denies daytime sleepiness, Denies fatigue, Denies fever(s), Denies frequent falls, Denies poor appetite, Denies snoring, Denies stops breathing during sleep, Denies weakness, Denies weight gain and Denies weight loss Eyes Denies loss of vision ENT Denies dizziness and Denies hearing loss Card Denies chest pain, Denies claudication, Denies leg edema, Denies lightheadedness, Denies palpitations, Denies dyspnea, Denies dyspnea on exertion and Denies orthopnea Resp Denies cough, Denies excessive phlegm production, Denies dyspnea, Denies dyspnea on exertion, Denies snoring and Denies wheezing GI Denies abdominal pain, Denies hematochezia, Denies change in bowel habits, Denies nausea and Denies vomiting Denies urinary frequency and Denies dysuria Musc Denies arthralgias, Denies muscle weakness, Denies numbness and Denies other (frequent falls) Skin/Breast Denies nail changes and Denies rash Neuro Denies Abnormal speech present, Denies dizziness, Denies frequent falls, Denies loss of vision, Denies memory loss, Denies numbness and Denies weakness Psych Denies depression and Denies memory loss Endo Denies fatigue and Denies palpitations Mike/Lymph Reports easy bruising and Reports other (anemia) Aller/Immun Denies wheezing Physical Exam Vital Signs: Last Vital Signs Pulse 82 07/03/25 10:09 BP 130/80 07/03/25 10:09 BMI result Body Mass Index 37.2 Const General: cooperative, comfortable, no acute distress, alert, awake, Physically active and well groomed Nutritional Appearance: obese Orientation/consciousness: patient oriented x3 Limitations: no limitations HEENT Head: Yes normocephalic and Yes atraumatic Neck Neck: Yes trachea midline, Yes supple and Yes no JVD Resp Effort & Inspection: normal respiratory effort Auscultation: clear to auscultation bilaterally Cardio Jugular venous distension: no JVD Rate: regular rate Rhythm: regular rhythm Heart sounds: S1 normal heart sound present, S2 normal heart sound present, no click, no gallops and no murmurs Bruits: no carotid bruits GI Auscultation: normal bowel sounds Skin General skin exam: no rashes or lesions noted Neuro General: patient oriented x3 and no focal motor deficits Speech: No Abnormal speech present Extrem General: Yes no clubbing, cyanosis or edema Office Procedures EKG Details: EKG shows normal sinus rhythm with Q-waves in lead AVF with poor R-wave progression most likely lead placement with nonspecific STT wave changes [id number], Complete Assessment & Plan Assessment & Plan (1) CAD (coronary artery disease): Comment: Chronic total occlusion of the distal circumflex by cardiac catheterization in 2021 with good xmcm-yr-zgxa collaterals Code(s): I25.10 - Atherosclerotic heart disease of makah coronary artery without angina pectoris Category: Medical Qualifiers: Associated angina: unspecified whether angina present Coronary Disease-Associated Artery/Lesion type: makah artery [place] vs. transplanted heart: unspecified whether makah or transplanted heart Qualified Code(s): I25.10 - Atherosclerotic heart disease of makah coronary artery without angina pectoris Plan: CAD with chronic total occlusion of the distal circumflex artery with good collaterals with no worsening symptoms. Her symptoms of shortness of breath could be anginal equivalent but also could be related to her weight and deconditioning related to reduced exercise capacity related to her knee issues. At this point in time I would continue with aggressive medical therapy. Continue low-dose aspirin therapy. She is on multiple antianginal agents and says his shortness of breath stable and maybe mildly improved. Her blood pressure is currently well optimized. Advised to continue current blood pressure regimen. Avoidance of salt loading was discussed. Advised to monitor blood pressure at home maintain a log. Goal blood pressure less than 130/84. Her LDL is not well optimized have taken the liberty to add ezetimibe to her regimen to target goal LDL less than 70 mg/dL. Advised to participate in regular physical activity and weight loss program. She understands. We discussed about knee surgery in her and given her advanced age and coronary disease she is not low risk but she is not prohibitive risks and is probably intermediate risk for perioperative cardiovascular morbidity mortality. She is probably going to explore further evaluation for possible knee replacement. Will follow up in the clinic in 1 year's time, sooner p.r.n.. Thank you for allowing me to partake in her care Orders: Orders CRP High Sensitivity 3 Months E78.5 - Hyperlipidemia, unspecified, I25.10 - Atherosclerotic heart disease of makah coronary artery without angina pectoris Lipid Panel 3 Months I25.10 - Atherosclerotic heart disease of makah coronary artery without angina pectoris Medications: New ezetimibe 10 mg PO DAILY 30 tabs 5RF Coding Level of Care Code New Pt Level 4 (05092) Complex EM visit Add On G2211 Diagnoses Coronary artery disease involving makah coronary artery, unspecified whether angina present, unspecified whether makah or transplanted heart I25.10 Associated angina: unspecified whether angina present Coronary Disease-Associated Artery/Lesion type: makah artery [place] vs. transplanted heart: unspecified whether makah or transplanted heart CPT Codes EKG - CPT: 40904-[id number], Complete ([id number])
--- OUTSIDE RECORDS SUMMARY | 2025-07-03 10:24 | XMS_ITS | Patient Health Record ---
Author Organization [facility] Address [address] [facility] [place] [address] Care Team Providers Care Fire Extinguisher Installer Name Role Phone Yanely Otero Unavailable [phone] Allergies No Known Allergies Reason For Referral [...] 06/06/2025 Encounters Encounter Location Date Provider Diagnosis [address] [address] 09/06/2024 Yanely Perica Tinea unguium B35.1 ; Pain in right toe(s) M79.674 and Pain in left toe(s) M79.[address] [address] 09/24/2024 Yanely Perica Ingrown nail L60.0 and Cellulitis of toe of left foot L03.[address] [address] 11/13/2024 Yanely Perica Tinea unguium B35.1 ; Xerosis of skin L85.3 ; Pain in right toe(s) M79.674 and Pain in left toe(s) M79.[address] [address] 01/24/2025 Yanely Perica Tinea unguium B35.1 ; Xerosis of skin L85.3 ; Pain in right toe(s) M79.674 and Pain in left toe(s) M79.[address] [address] 04/01/2025 Yanely Perica Pain in right toe(s) M79.674 ; Onychomycosis B35.1 and Pain in left toe(s) M79.675 [facility] [place] [address] [place] [address] 06/06/2025 Yanely Perica Pain in right toe(s) M79.674 ; Onychomycosis B35.1 and Pain in left toe(s) M79.675 [facility] [address] [address] 09/20/2024 Yanely Perica Cellulitis of right toe L03.031 Assessments Encounter Date Diagnosis (ICD Code) Assessment Notes Treatment Notes Treatment Clinical Notes Section Notes 09/06/2024 Tinea unguium (ICD-10 - B35.1) 09/20/2024 [...] toe(s) (ICD-10 - M79.674) 09/06/2024 Pain in left toe(s) (ICD-10 - [...] Details Provider Name:Yanely lambert, 08/12/2025 11:30:00 AM, [address] [place] [address], [phone], Provider Name:Yanely lambert, 10/15/2025 11:00:00 AM, [address] [place] [address], [phone], Insurance Providers Payer Name Payer Address Payer Phone Subscriber Number Group Number Insured Name Patient Relationship to Insured Coverage Start Date Coverage End Date Medicare National Govt [facility] [address] [place] [address] [id number] Julita Pimentel Self - patient is the insured [employer] Blue Shield [address] [place] [address] [id number] Julita Pimentel Self - patient is the insured Medical (General) History Medical History History ICD Code Arthritis Back,Hip,and Knee pain CAD (Cholesterol) High blood pressure Psoriasis/eczema Joint implants/screws Surgical History Surgery Date(Month/Year) 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
--- OUTSIDE RECORDS SUMMARY | 2025-07-03 10:24 | XMS_ITS | Clinical Summary ---
Author Organization [facility] Address [address] [facility] [facility] [place] [address] Phone Care Team Providers Care Global Upstream Marketing Manager Name Role Phone Maximo Vines MD Primary Care Provider [phone] Allergies No known active allergies Medications metoprolol tartrate (LOPRESSOR) 25 mg tablet Take 1 tablet (25 mg total) by mouth 2 (two) times a day. 4 Active losartan (COZAAR) 50 mg tablet Take 1 Tablet by mouth at bedtime. Active aspirin 81 mg EC tablet Take 81 mg by mouth daily. Active acetaminophen (TYLENOL) 500 mg tablet Take 1 tablet (500 mg total) by mouth every 6 (six) hours if needed. Active atorvastatin (LIPITOR) 40 mg tablet TAKE 1 TABLET BY MOUTH EVERY DAY 90 tablet 3 4 Active doxycycline (VIBRAMYCIN) 100 mg capsule Take 1 capsule (100 mg total) by mouth 2 (two) times a day. for 10 days 5 Active isosorbide mononitrate (IMDUR) 60 mg 24 hr tablet TAKE 1 TABLET BY MOUTH EVERY DAY 90 tablet 2 5 Active amLODIPine (NORVASC) 2.5 mg tabletIndications :Essential (primary) hypertension TAKE 1 TABLET BY MOUTH EVERY DAY 90 tablet 3 5 Active Active Problems Problem Noted Date Diagnosed Date Coronary artery disease 06/17/2022 Overview (11/01/2024): Last Assessment & Plan: Patient has history of NC in the past as noted on previous [...] Tdap) 1959 Cholesterol Screening (Lipid Panel) 11/06/2022 Falls Risk Assessment 11/06/2022 Hypertension/CHF/CAD Annual BMP Blood Test 11/06/2022 Osteoporosis Screening (Bone Density Screening) 11/06/2022 Social Influencers of Health Screening 11/06/2022 Medicare Annual Wellness Visit 05/03/2024 05/03/2023 COVID-19 Vaccine ( season) 2024 09/19/2022, 03/09/2022, 09/02/2021, Additional history exists Depression Screening 11/27/2024 Influenza Vaccine (#1) 2025 , 09/19/2022, 09/02/2021, Additional history exists Zoster Vaccines [...] patient's age to complete this topic Insurance [place] [id number] MEDICARE [facility] Care Teams Global Upstream Marketing Manager Relationship Specialty Start Date End Date Maximo Vines MD [address] [place] [address] Dr Wilmer [place] PCP - General Internal Medicine 03/21/22
== END 2025-07-03 10:41 | disposition home or self-care (01) ==
LOC: HO.HCS 09:56
PROVIDERS: PCP Internal Medicine; Visit Provider Internal Medicine Cardiovascular Disease
DX: I25.10 Atherosclerotic heart disease of native coronary artery without angina pectoris (principal)
CPT/HCPCS: 93010; 99204; G2211

== ENCOUNTER → 2025-07-03 09:55 | Outpatient (BNVA) | payer MEDICARE, SELFPAY | PROVIDERS: PCP Internal Medicine; Visit Provider Internal Medicine Cardiovascular Disease | DX: I25.10 Atherosclerotic heart disease of native coronary artery without angina pectoris (principal); R94.31 Abnormal electrocardiogram [ECG] [EKG] | CPT/HCPCS: 93005; 99202 ==

== ENCOUNTER 2025-08-13 11:11 | Outpatient (AMB) | payer MEDICARE, SELFPAY ==
--- OUTSIDE RECORDS SUMMARY | 2025-08-12 07:30 | XMS_ITS ---
[facility] Organization [facility] Address [address] [facility] [place] [address] Care Team Providers Care Kiln Feeder Name Role Phone Yanely Otero Unavailable [phone] Allergies No Known Allergies REASON FOR VISIT Painful nail(s) aggravated by shoes causing difficulty standing/walking Medications Medication SIG (Take, Route, Frequency, Duration) Notes Start Date End Date Status Cephalexin 500 MG 1 tablet Orally Twic e a day; Duration: 5 days Not-Taking Crestor 10 MG 1 tablet Orally Once a day; Duration: 30 day(s) Not-Taking Feldene 20 MG 1 capsule with food Orally Once a day; Duration: 14 days 09/22/2021 Not-Taking Physical Therapy . . . 2-3x/week; Duration: 3-4 weeks 09/27/2023 Not-Taking Gabapentin 300 MG 1 capsule Orally Twi ce a day Not-Taking Aspir-81 81 MG 1 tablet Orally Once a day; Duration: 30 day(s) Active Augmentin 500-125 MG 1 tablet Orally Twi ce a day; Duration: 7 days 02/12/2019 Not-Taking Ammonium Lactate 12 % 1 application Externally Twice a day; Duration: 30 days Active Losartan Potassium 50 MG 1 tablet Orally Once a day Active Metoprolol Tartrate 25 MG 1 tablet with food Orally Twice a day Active amLODIPine Besylate 2.5 MG 1 tablet Orally Once a day Active Atorvastatin Calcium 40 MG 1 tablet Orally Once a day; Duration: 30 days Active Isosorbide Mononitrate Active Social History Tobacco Use: Social History Observation Description Date Details (start date - stop date) Never Smoker NA - NA Tobacco use other than smoking: Question Answer Notes Are you an other tobacco user? No Tobacco Control (Standard) Question Answer Notes Tobacco use: Nonsmoker Additional Findings: Tobacco non-user Current no nsmoker AUDIT-C (Standard) Question Answer Notes Did you have a drink containing alcohol in the p ast year? No Points 0 Interpretation Negative Problems No Known Problems Vital Signs Height 5 ft1in in 08/12/2025 Weight 180 lbs 08/12/2025 BMI 34.01 kg/m2 08/12/2025 Blood pressure systolic 127 mm Hg 08/12/20 25 Blood pressure diastolic 70 mm Hg 025 Encounters Encounter Location Date Provider Diagnosis [facility] [address] [id number] 08/12/2025 Yanely Otero Pain in right toe(s) M79.674 ; Onychomycosis B35.1 and Pain in left toe(s) M79.675 Assessments Encounter Date Diagnosis (ICD Code) Assessment Notes Treatment Notes Treatment Clinical Notes Section Notes 08/12/2025 Pain in right toe(s) (ICD-10 - M79.674) 08/12/2025 Onychomycosis (ICD-10 - B35.1) 08/12/2025 Pain in left toe(s) (ICD-10 - M79.675) Plan Of Treatment Next Appt Details Follow Up: 2 Months, Reason: Provider Name:Yanely Castillo Saúl fausto, 10/15/2025 11:00:00 AM, [address] [place] [address], [phone], Provider Name:Yanely Castillo Saúl fausto, 12/24/2025 11:00:00 AM, [address] [place] [address], [phone], Procedure Notes * Category Sub-Category Detail Notes [...] T2, T3, T4, T5, T6, T7, T8, T9, ), was performed exclusively by the physician of record to reduce/remove overall nail length, girth, thickness, subungual debris, and necrotic tissue, by manual and/or electrical means through the use of a nail nipper and/or dremel-type crankshaft grinder, to a more viable healthy nail [...] to maintain effectiveness in symptomatic relief - 02985 Progress Notes * Julita PIMENTEL MDOB:[birth year] (85 yo F)Acc No.[id number]:08/12/2025 Progress Note Patient: El DIONISIO Julita Jorge Provider: Hugh Otero DPM :1940 A ge:85 Y S ex:Female Date:08/12/2025 Address:[address] [place] [address] Subjective: * Chief Complaints: * P ainful nail(s) aggravated by shoes causing difficulty standing/walking * HPI: P ainful Nails: Pt States Last PCP Visit: D ate: 0 03/27/2025 * ROS: G eneral/Constitutional: Nausea d enies. V omiting d enies. H barbie Thirst d enies. L oss appetite d enies. C hills d enies. F atigue d enies.?Fever d enies. N ight Sweats d enies. U nexplained weight loss d enies. U nexplained weight gain d enies. H EENTM: Dentures d enies. D izziness d enies. G lasses/contacts a dmits. R etinopathy d enies. B lurred/double vision d enies. T MJ?denies. D ischarge/drainage d enies. I mplants d enies. S ore throat d enies. D ental implants d enies. H penny of hearing d enies. D ifficulty chewing/swallowing/speaking d enies. N ose bleeds d enies. S ore mouth d enies. ? R espiratory: On Oxygen d enies. P neumonia/pleurisy d enies.?Bronchitis d enies. E mphysema d enies. C oughing d enies. C ough blood?denies. S hortness of breath d enies. W heezing d enies. C ardiovascular: Pacemaker d enies. M CAB SUPERVISOR d enies. W PW d enies. C HF d enies. H eart attack d enies. S eptal defect d enies. R apid beat d enies. C hest pain d enies. A trial Fib. d enies. M urmur/Palpitations d enies. G astrointestinal: Hemorrhoids d enies. S tomach/Abdominal pain d enies. D ark blood stool d enies. I rritable bowel d enies. C onstipation d enies. D iarrhea d enies. H ematology: Swelling a dmits. C lots d enies. V aricose Veins d enies. B ruising d enies. B leeding problem d enies. G enitourinary: Blood urine d enies. F requent/Painfu/urination/bladder control d enies. K idney stones d enies. I nfection (UTI) d enies. N ephropathy d enies. s ex trans dis (STD) d enies. P rostate d enies. M usculoskeletal: Hammertoes d enies. B unions d enies. B ack Pain d enies. M uscle Cramps/ Resting d enies. M uscle cramps / walking d enies.?Generalized aches and pains d enies. W eakness d enies. I nteg.: [place] d enies. S cars d enies. C orns/calluses?denies. I ngrown nails d enies. P ainful nails a dmits. O pen Sores d enies. R ashes d enies. N eurologic: Difficulty sleeping d enies. B rain disorder d enies. N umbness d enies. B alance trouble d enies. C onfusion d enies. F ainting/blackouts d enies. T ingling d enies. T remors d enies. 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 F ather: , diagnosed with Family history of arthritis. * Social History: T obacco Use: T obacco use other than smoking A re you an other tobacco user? N o Tobacco Control (Standard) T obacco use: N onsmoker A dditional Findings: Tobacco non-user C urrent nonsmoker M iscellaneous: C affeine: yes, 1 cup a day. Children: yes, 5. Exercise: yes, bike sometimes. Marital status: . 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 D rug/Alcohol: A CYNTHIA-C (Standard) D id you have a drink containing alcohol in the past year? N o P oints 0 I nterpretation N egative * Medications: T akingamLODIPine Besylate 2.5 MG Tablet 1 tablet Orally Once a day Isosorbide Mononitrate Atorvastatin Calcium 40 MG Tablet 1 tablet Orally Once a day Aspir- 81 81 MG Tablet Delayed Release 1 tablet Orally Once a day Metoprolol Tartrate 25 MG Tablet 1 tablet with food Orally Twice a day Losartan Potassium 50 MG Tablet 1 tablet Orally Once a day Ammonium Lactate 12 % Cream 1 application Externally Twice a day Taking amLODIPine Besylate 2.5 [...] Cream 1 application Externally Twice a day Not-Taking/PRNAugmentin 500-125 MG Tablet 1 tablet Orally Twice a day Physical Therapy . . . . 2-3x/week Feldene 20 MG Capsule 1 capsule with food Orally Once a day Crestor 10 MG Tablet 1 tablet Orally Once a day Cephalexin 500 MG Tablet 1 tablet Orally Twice a day Gabapentin 300 MG Capsule 1 capsule Orally Twice a day Medication List reviewed and reconciled with the patientNot-Taking/PRN Augmentin 500-125 MG Tablet 1 tablet Orally Twice a day Not-Taking/PRN Physical Therapy . . . . 2-3x/week Not-Taking/PRN Feldene 20 MG Capsule 1 capsule with food Orally Once a day Not-Taking/PRN Crestor 10 MG Tablet 1 tablet Orally Once a day Not-Taking/PRN Cephalexin 500 MG Tablet 1 tablet Orally Twice a day Not-Taking/PRN Gabapentin 300 MG Capsule 1 capsule Orally Twice a day Medication List reviewed and reconciled with the patient * Allergies: N .K.D.A.yes[Allergies Verified] Objective: * Vitals: H t: 5 ft1in, Wt: 180, BMI: 34.01, Shoe size: 8, BP: 127/70 mm Hg, Ht-cm: 154.94 cm, Wt-k.65 kg. * Examination: N ails: NAILS are: C ontinued Elongated, overgrown, dystrophic, lytic, greater than 3mm thick, discolored and friable with crumbly malodorous subungual debris, with pain on palpation, TA, T1, T2, T3, T4, T5, T6, T7, T8, T9. Assessment: * Assessment: 1. P ain in right toe(s) - M79.674 2 . O nychomycosis - B35.1 (Primary)? 3. P ain in left toe(s) - M79.675 Plan: * Treatment: * Procedures: D ebride Nail 6-10: Nail debridement D ue to the clinical pathology outlined in the exam findings, performance of this nail treatment is medically necessary as its management by an unskilled/untrained nonprofessional would put this patients foot and overall health at risk. Therefore, debridement to affected nail(s), as described in exam ( TA, T1, T2, T3, T4, T5, T6, T7, T8, T9, ), was performed exclusively by the physician of record to reduce/remove overall nail length, girth, thickness, subungual debris, and necrotic tissue, by manual and/or electrical means through the use of a nail nipper and/or dremel- type crankshaft grinder, to a more viable healthy nail [...] to maintain effectiveness in symptomatic relief - 96023. * Procedure Codes: 1 1721 DEBRIDE NAIL, 6 OR MORE * Preventive Medicine: Screening/Special Tests: F all Risk Screening: N o falls in the past year F ALLS: Screening for Future Fall Risk Have you had two or more falls in the past year? N o Have you had any falls with injury in the past year? N o * Follow Up: 2 Months * Images: * Sign off status: Completed true * Provider: Hugh Otero, DPM Date: 0 08/12/2025 Generated for Terry garcia/Mini/Michiitting on: 0 08/13/2025 02:23 PM EDT History and Physical Notes * HPI (History of Present Illness) Category Sub-Category Detail Notes Category Not es Painful Nails Pt States Last PCP Visit: Date:: 03/27/2025 Examination Category Sub-Category Detail Notes Category Not es Nails NAILS are: Continued Elonga bennett, overgrown, dystrophic, lytic, greater than 3mm thick, discolored and friable with crumbly malodorous subungual debris, with pain on palpation, TA, T1, T2, T3, T4, T5, T6, T7, T8, T9
[2025-08-13 11:14] VITALS: BP 150/60; PULSE 67; O2SAT 97; BMI 36.6
--- NOTE | 2025-08-13 11:14 | MHC.OFFVIS ---
Vital Signs 08/13/25 11:14 Height 5 ft Weight 187 lb 6.287 oz BMI 36.6 BP 150/60 H Blood Pressure Location Lt brachial Position Sitting Pulse 67 Pulse Source Pulse Oximeter Pulse Oximetry (%) 97 Oxygen Delivery Method Room Air Intake Visit Reasons: Asthma Configuration Engineer Required: No Accompanied by: Self / Same As Patient Allergies latex (LATEX) Allergy (Unknown, Verified 06/16/25 18:56) UNSURE HPI Comments Details: The patient is an 85 year woman with unremarkable past medical history until back in the spring when she was exposed to sick contacts. After that she started having a cough. She has been evaluated for the cough since then. The cough varies usually nonproductive in nature. Moderate severity. She did take a course of prednisone that partially helped the symptoms. In addition to that she has been on albuterol with again partial resolution of the symptoms. As far as her symptoms she had blood work done her D-dimer was elevated back in May and the patient did undergo a CTA. I personally reviewed the CT scan with the patient. She has evidence of bronchitis and also mosaic pattern suggesting air trapping in small airways disease. The patient also had a small pulmonary nodule which of does not appear to be concerning but will need follow-up. In addition to that the patient did have a small to moderate-sized hiatal hernia. On examination the patient does have a prolonged expiratory phase and also post exhalation cough. Definitely has a component of obstructive airway disease. She does have an elevation in the eosinophils suggesting an allergic component as well. Therefore she has multiple reasons to have a cough including a component of asthmatic bronchitis and also has the hiatal hernia. We did talk about reflux diet and will perform a barium swallow. The patient will also get allergy testing and we will optimize her respiratory therapy. 12/12/2023 the patient is here for pulmonary follow-up visit. Overall the patient is feeling better. She responded very well to the Trelegy inhaler. Although now is about 6 dollars because of her deductible. The patient is waiting to paid off her deductible before she renew use it. She is using her albuterol right now twice a day to help her with her symptoms. She does have episodes of chest tightness and wheezing. Cbap-ag-cnjqbzcw severity. In addition to that she does have nasal congestion and eczema. The patient did have pulmonary function studies. We personally review the PFTs together. She has no evidence of any obstruction or restriction. Her diffusing capacity slightly decreased. In addition to that she had blood work. 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 The patient also has significant allergies to mold which I am worried about. In addition to that 2 dogs. She has allergies to everything else but just less in degree. She is going to work on minimizing exposures in order to minimize symptoms. In addition to that while she can not afford the Trelegy she can go ahead and start AirDuo through the good Rx program. She knows that she needs to have an inhaled steroid at all times. The patient also complains of the runny nose therefore will send her prescription for ipratropium nasal spray. We did talk about biologic therapy. 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 All those very expensive for her. Will hold off on biologics at this time specially since she is doing better. Will consider biologics if her symptoms worsen and she does not respond to optimal therapy. 06/12/2024 the patient is here for a pulmonary follow-up visit. Overall the patient has not feeling better. She is using the AirDuo as prescribed. It is a lot more financially reasonable for her and is also affecting beneficial. She does use it twice a day. She knows to rinse her mouth. She has not had to use her rescue inhaler. She is monitoring closely her diet. The patient needs to continue reflux diet. We did review her CT scan of the chest demonstrating a moderate large hiatal hernia. She was call to have a barium swallow she has not had it as of yet. She understands that barium swallow helpful least to look at the mucosa make sure no abnormalities. Otherwise she can talk to her primary care doctor about a GI referral. The patient also had a pulmonary nodule. 4 mm in size. She should have a follow-up CT scan. Although currently she is reluctant to have any test. The patient does have a knee surgery in the near future. Therefore, will postpone her CT scan till next year. If however she develops any worsening respiratory symptoms or any concerning constitutional symptoms she can always call and we can readdress this at earlier time. 08/30/2024 the patient is here for sick visit. The patient has had worsening respiratory symptoms. She has had chest congestion and wheezing now for about 3-4 weeks. She tested negative for COVID. She has not seen significant improvement with her inhaler therapy. In addition to that we did look at her blood work. She has significant allergies with an elevated IgE level and an elevated eosinophil level. The patient likely has severe persistent asthmatic bronchitis. Therefore, based on the fact that she has failed maximum respiratory therapy she will benefit from biologic therapy with Dupixent. We will give her some information start the process to see about getting it approved. In the meantime we are going to treat her for an asthma exacerbation with antibiotics. She does have some crackles at the left base therefore, need to consider bronchopneumonia. 12/10/2024 the patient is here for pulmonary follow-up visit. Overall she is better. She was sick back in August. She did get prednisone Augmentin. Her symptoms improved after 3 days. She has significant allergies. We did review imaging study. She did have a CT scan back in 2022 demonstrating a 4 mm pulmonary nodule. Positive family history of lung cancer in the family. Will go ahead and request a repeat CT scan to make sure the nodule is not progressing size. The patient does have significant allergies. Specially to mold. Right now clinically she is doing well we can hold off on biologics. I did give her the allergy testing that she had in the past so she can try to avoid her significant allergies. She will follow-up in the fall. She has not issues prior to that she will call for an earlier assessment. 08/13/2025 the patient is here for pulmonary follow-up visit. Overall she is doing well. Denies any worsening respiratory complaints. she was not able to get the Trelegy inhalers which is for she started axilla. There were excised much more cost effective and works well for her. She did not have to consider the biologics. She does not appear to need biologic therapy at this time. She also has a rescue inhaler. The patient did have a CT scan of the chest back in the winter of 2024 which I personally reviewed demonstrating multiple nodules largest 1 measuring 7 mm in size. She is scheduled to undergo a repeat CT scan sometime in September. Therefore will touch base with her after the CT scan. Hopefully the nodules are stable if not improved. If there is any worsening pulmonary nodules will have to further investigate. She does have a chronic cough bringing up the question of benign tumor growth such as carcinoid back in resulting chronic cough. Otherwise the patient is doing well will follow-up in 6-[address] scan is abnormal. if any issues arise she can always call further recommendations. [facility] Medical History Bronchopneumonia Pulmonary nodule Eczema Allergies Asthma Hiatal hernia Chronic cough Family History Mother No problems noted. Father No problems noted. Social History Housing: House Patient Tobacco Use Status: Never used Tobacco e-Cigarette/Vaping Use: Never Used service: No Current occupational status: retired Cognitive needs: No Hearing needs: No Vision needs: Yes (rx glasses) Review of Systems Const Denies fever(s) Eyes Reports no additional complaints ENT Reports nasal congestion, Reports nasal discharge and Reports post nasal drip Card Denies chest pain Resp Reports cough and Reports wheezing GI Reports dyspepsia and Reports heartburn Musc Reports no additional complaints Skin/Breast Reports rash Neuro Reports no additional complaints Mike/Lymph Denies easy bruising Aller/Immun Reports wheezing Physical Exam Vital Signs: Last Vital Signs Pulse 67 08/13/25 11:14 BP 150/60 H 08/13/25 11:14 Pulse Ox 97 08/13/25 11:14 Oxygen Delivery Method Room Air 08/13/25 11:14 BMI result Body Mass Index 36.6 Const General: comfortable HEENT Head: Yes normocephalic Neck Neck: Yes supple Chest Chest palpation & inspection: normal inspection of the chest Resp Effort & Inspection: normal respiratory effort Auscultation: diminished lung sounds Cardio Heart sounds: S1 normal heart sound present and S2 normal heart sound present GI Palpation (GI): Soft to palpation Skin General skin exam: no rashes or lesions noted Extrem General: Yes no clubbing, cyanosis or edema Assessment & Plan Assessment & Plan (1) Asthma: Code(s): J45.909 - Unspecified asthma, uncomplicated Category: Medical Qualifiers: Asthma complication type: uncomplicated Asthma persistence: persistent Asthma severity: severe Qualified Code(s): J45.50 - Severe persistent asthma, uncomplicated (2) Chronic cough: Code(s): R05.3 - Chronic cough Category: Medical (3) Hiatal hernia: Code(s): K44.9 - Diaphragmatic hernia without obstruction or gangrene Category: Medical (4) Pulmonary nodule: Code(s): R91.1 - Solitary pulmonary nodule Category: Medical Plan continue Wixela SERGIO as needed Avoidance of allergens (mold, dogs) consider Dupixent reflux diet sleep elevated ipratropium nasal spray as needed CT chest F/U 6-8 months, should call if worsens Coding Level of Care Code Est Pt Level 4 (51129) Complex EM visit Add On G2211 Diagnoses Severe persistent asthma without complication J45.50 Asthma complication type: uncomplicated Asthma persistence: persistent Asthma severity: severe Chronic cough R05.3 Hiatal hernia K44.9 Pulmonary nodule R91.1 Time Spent (min) 17
--- OUTSIDE RECORDS SUMMARY | 2025-08-13 14:24 | XMS_ITS | Patient Health Record ---
Author Organization [facility] Address [address] [facility] [place] [address] Care Team Providers Care Epic Willow Specialist Name Role Phone Yanely Otero Unavailable [phone] Allergies No Known Allergies Reason For Referral [...] . 2-3x/week; Duration: 3-4 weeks 09/27/2023 Not-Taking Aspir-81 81 MG 1 tablet Orally Once a day; Duration: 30 day(s) Active Atorvastatin Calcium 40 MG 1 tablet Orally Once a day; Duration: 30 days Active Isosorbide Mononitrate Active Gabapentin 300 MG 1 capsule Orally Twi ce a day Not-Taking Immunizations Vaccine Route Administration Date Status Comme nts Influenza Unknown 07/28/2024 Administered COVID-19 Pfizer BioNTech Vaccine Unknown 09/01/2021 Administered First Dose: 12/27/20 Second Dose: 01/17/2021 Social History Tobacco Use: Social History Observation Description Date Details (start date - stop date) Never Smoker NA - NA Alcohol Screen Question Answer Notes Did you [...] Signs Blood pressure diastolic 70 mm Hg 08/12/2025 Height 5 ft1in in 08/12/2025 Blood pressure systolic 127 mm Hg 08/12/2025 Weight 180 lbs 08/12/2025 BMI 34.01 kg/m2 08/12/2025 Encounters Encounter Location Date Provider Diagnosis [address] [address] 09/06/2024 Yanely Perica Tinea unguium B35.1 ; Pain in right toe(s) M79.674 and Pain in left toe(s) M79.[address] [address] 09/24/2024 Yanely Perica Ingrown nail L60.0 and Cellulitis of toe of left foot L03.[address] [address] 11/13/2024 Yanely Perica Tinea unguium B35.1 ; Xerosis of skin L85.3 ; Pain in right toe(s) M79.674 and Pain in left toe(s) M79.[address] [address] 01/24/2025 Yanely Perica Tinea unguium B35.1 ; Xerosis of skin L85.3 ; Pain in right toe(s) M79.674 and Pain in left toe(s) M79.[address] [address] 04/01/2025 Yanely Perica Pain in right toe(s) M79.674 ; Onychomycosis B35.1 and Pain in left toe(s) M79.[address] [address] 06/06/2025 Yanely Perica Pain in right toe(s) M79.674 ; Onychomycosis B35.1 and Pain in left toe(s) M79.[address] [address] 08/12/2025 Yanely Perica Pain in right toe(s) M79.674 ; Onychomycosis B35.1 and Pain in left toe(s) M79.675 [facility] [address] [address] 09/20/2024 Yanely Perica Cellulitis of right toe L03.031 Assessments Encounter Date Diagnosis (ICD Code) Assessment Notes Treatment Notes Treatment Clinical Notes Section Notes 09/20/2024 Cellulitis of right toe (ICD-10 - L03.031) 09/24/2024 Ingrown nail (ICD-10 - L60.0) 09/24/2024 Cellulitis of toe of left foot (ICD-10 - L03.032) 01/24/2025 Tinea unguium (ICD-10 - B35.1) 09/06/2024 Tinea unguium (ICD-10 - B35.1) 01/24/2025 Xerosis of skin (ICD-10 - L85.3) 04/01/2025 Pain in right toe(s) (ICD-10 - M79.674) 06/06/2025 Pain in right toe(s) (ICD-10 - M79.674) 08/12/2025 Pain in right toe(s) (ICD-10 - M79.674) 11/13/2024 Xerosis of skin (ICD-10 - L85.3) 11/13/2024 Tinea unguium (ICD-10 - B35.1) 11/13/2024 Pain in right toe(s) (ICD-10 - M79.674) 08/12/2025 Onychomycosis (ICD-10 - B35.1) 06/06/2025 Onychomycosis (ICD-10 - B35.1) 04/01/2025 Onychomycosis (ICD-10 - B35.1) 09/06/2024 Pain in right toe(s) (ICD-10 - M79.674) 01/24/2025 Pain in right toe(s) (ICD-10 - M79.674) 01/24/2025 Pain in left toe(s) (ICD-10 - M79.675) 09/06/2024 Pain in left toe(s) (ICD-10 - M79.675) 04/01/2025 Pain in left toe(s) (ICD-10 - M79.675) 06/06/2025 Pain in left toe(s) (ICD-10 - M79.675) 08/12/2025 Pain in left toe(s) (ICD-10 - M79.675) 11/13/2024 Pain in left toe(s) (ICD-10 - M79.675) Plan Of Treatment Pending Test Test Name Order Date X ray : Foot, right 3V 09/22/2021 X ray : Foot, right 3V 09/27/2023 Next Appt Details Provider Name:Yanely Anna lambert, 10/15/2025 11:00:00 AM, [address] [place] [address], [phone], Provider Name:Yanely lambert, 12/24/2025 11:00:00 AM, [address] [place] [address], [phone], Insurance Providers Payer Name Payer Address Payer Phone Subscriber Number Group Number Insured Name Patient Relationship to Insured Coverage Start Date Coverage End Date Medicare National Govt Sv[employer] [address] [place] [address] [id number] Julita Pimentel Self - patient is the insured [employer] [address] [place] [address] [id number] Julita Pimentel Self - patient is the insured Medical (General) History Medical History History ICD Code Arthritis Back,Hip,and Knee pain CAD (Cholesterol) High blood pressure Psoriasis/eczema Joint implants/screws Surgical History Surgery Date(Month/Year) 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
--- OUTSIDE RECORDS SUMMARY | 2025-08-13 14:24 | XMS_ITS | Clinical Summary ---
Author Organization [facility] Address [address] [place] [address] Phone Care Team Providers Care Hairspring Studder Name Role Phone Maximo Vines MD Primary Care Provider [phone] Allergies No known active allergies Medications metoprolol [...] Assessment & Plan: Patient has history of [place] in the past as noted on previous [...] continue on losartan and amlodipine as prescribed. Encounters Date Type Department Care Team Description 07/03/2025 Telephone [facility] [address] [place] [address] Maximo Vines MD from Last 3 Months Medical History Medical History Date Comments Fatigue [...] 11/06/2022 Medicare Annual Wellness Visit 05/03/2024 05/03/2023 Depression Screening 11/27/2024 COVID-19 Vaccine ( season) 2025 09/19/2022, 03/09/2022, 09/02/2021, Additional history exists Influenza Vaccine (#1) 2025 , 09/19/2022, 09/02/2021, [...] age to complete this topic Insurance MEDICARE [facility] Care Teams Hairspring Studder Relationship Specialty Start Date End Date Maximo Vines MD [address] [place] [address] Dr [place] PCP - General Internal Medicine 03/21/22
== END 2025-08-13 11:44 | disposition home or self-care (01) ==
LOC: HO.HPS 11:12
PROVIDERS: PCP Internal Medicine; Visit Provider Hospitalist
DX: J45.50 Severe persistent asthma, uncomplicated (principal); R05.3 Chronic cough; K44.9 Diaphragmatic hernia without obstruction or gangrene; R91.1 Solitary pulmonary nodule
CPT/HCPCS: 99214; G2211

== ENCOUNTER → 2025-08-13 11:11 | Outpatient (BNVA) | payer MEDICARE, SELFPAY | PROVIDERS: PCP Internal Medicine; Visit Provider Hospitalist | DX: R91.1 Solitary pulmonary nodule (principal); J45.50 Severe persistent asthma, uncomplicated; R05.3 Chronic cough; K44.9 Diaphragmatic hernia without obstruction or gangrene | CPT/HCPCS: 99212 ==

== ENCOUNTER 2025-09-12 15:44 | Emergency (ER) | payer MEDICARE, SELFPAY ==
--- OUTSIDE RECORDS SUMMARY | 2024-06-19 07:30 | XMS_ITS ---
Author Organization [facility] Address [address] [place] [phone] Care Team Providers Care Waist Fitter Name Role Phone Yanely Otero Unavailable [phone] Problems No Known Problems Encounters Encounter Location Date Provider Diagnosis [address] [address] 06/19/2024 Yanely Otero Plan Of Treatment Next Appt Details Provider Name:Yanely lambert, 10/15/2025 11:00:00 AM, [address] [place] [address], [phone], Provider Name:Yanely lambert, 12/24/2025 11:00:00 AM, [address] [place] [address], [phone], Progress Notes * Julita PIMENTEL MDOB:[birth year] (85 yo F)Acc No.[id number]:06/19/2024 Progress Note Patient: El Julita NICHOLE Provider: Hugh Otero DPM :1940 A ge:84 Y S ex:Female Date:06/19/2024 [facility] [id number] Subjective: * Chief Complaints: * * Medical [...] 0 06/19/2024 Generated for Terry Mao/Namita on: 06:34 PM EDT
[2025-09-12] VITALS (7 sets, daily range): BP systolic 116–156; BP diastolic 63–71; PULSE 61–73; RESP 14–17; TEMP 36.3–36.6; O2SAT 95–98; BMI 35.7
--- NOTE | ~2025-09-12 | CT_ITS ---
EXAMINATION: CT HEAD WITHOUT CONTRAST CLINICAL INFORMATION: Dizziness, resolved COMPARISON: 06/16/2025. TECHNIQUE: Contiguous axial imaging was performed from the skull base to vertex without intravenous administration of contrast. This CT examination was performed using dose optimization techniques as appropriate, variously including the following: *Automated exposure control *Adjustment of mA and/or kV according to patient size (this includes techniques or standardized protocols for targeted exams where dose is matched to indication/reason for exam; i.e. extremities or head) *Use of iterative reconstruction technique FINDINGS: There is no evidence of intracranial hemorrhage or extra-axial fluid collection. There is no mass effect, or edema. No CT evidence of acute territorial infarct. Ventricles, sulci, and cisterns are normal in size and configuration for patient age. No hydrocephalus. No midline shift. Negative hyperdense MCA sign. Negative insular ribbon sign. Patchy periventricular and deep white matter hypoattenuation is consistent with mild to moderate small vessel ischemic changes. Normal pituitary. Atheromatous calcification of the bilateral carotid siphons and V4 segments vertebral arteries bilaterally. Globes and orbital contents image normally. There are bilateral lens replacement. No extracranial soft tissue abnormalities. The paranasal sinuses, mastoid air cells, and tympanic cavities are normally aerated. No suspicious bony abnormalities. There are no acute fractures evident. Mild hyperostosis frontalis. CT/CT head/brain wo IV con IMPRESSION: No acute intracranial abnormality. Electronically signed by: Zeeshan Quinones MD 09/12/2025 04:57 PM EDT
--- NOTE | 2025-09-12 16:13 | ED.GENADULT ---
HPI - General Adult General Chief complaint: General Medical Stated complaint: Flu/Covid Shot Reaction-Dizziness, Trouble Walking Time Seen by Provider: 09/12/25 17:12 Source: patient History of Present Illness ED Provider: JUNI Lynch HPI narrative: 85-year-old female with medical history of BPPV, HTN, CAD, eczema, asthma presents to ED due to dizziness and nausea after receiving flu and COVID shot. Patient states she woke up asymptomatic, went to get a flu and COVID shot around 11:00 a.m. then felt a sudden onset of dizziness and nausea approximately 2 hours after receiving the vaccine. Patient states she was diagnosed with BPPV in June and has been participating in vestibular PT. Patient states she had an appointment today but had to have her drive her due to dizziness. She did not take dramamine perscription as physical therapists advise her to not take medication before physical therapy. Her dizziness was so profound the physical therapist had her take a dose of dramamine and encouraged her to come to the ED for further evaluation. Patient states her dizziness and nausea has resolved after medication and feels much better. MD complaint: dizziness with nausea Related Data Home Medications ?Medication ?Instructions ?Recorded ?Confirmed aspirin 81 mg tablet,delayed 81 mg PO DAILY 02/01/23 09/08/25 release isosorbide mononitrate 60 mg 60 mg PO DAILY 02/01/23 09/08/25 tablet,extended release 24 hr metoprolol tartrate 25 mg tablet 25 mg PO BID 02/01/23 09/08/25 atorvastatin 20 mg tablet 40 mg PO DAILY 05/31/23 09/08/25 amlodipine 2.5 mg tablet 2.5 mg PO DAILY 08/30/24 09/08/25 Previous Rx's ?Medication ?Instructions ?Recorded fluticasone 250 mcg-salmeterol 50 1 inh inhalation Q12H 30 days #60 05/09/25 mcg/dose blistr powdr for ea inhalation (Wixela Inhub) losartan 50 mg tablet 50 mg PO DAILY #90 tabs 05/22/25 meclizine 12.5 mg tablet 12.5 mg PO TID PRN dizziness #60 09/04/25 tabs Allergies Allergy/AdvReac Type Severity Reaction Status Date / Time latex (LATEX) Allergy Unknown UNSURE Verified 09/12/25 15:50 Review of Systems Review of Systems: CONST: Negative for fever, body aches and chills. HENT: Negative for neck pain/stiffness, headache, congestion, sore throat, swelling. EYES: Negative for discharge/pain or vision changes. RESP: Negative for cough/hemoptysis and shortness of breath. CV: Negative chest pain, difficulty breathing, palpitations. ABD: Negative pain, nausea, vomiting. : Negative increase frequency, dysuria, blood in urine or stool. MUSC: Negative for muscle aches, edema. SKIN: Negative rash, lesions/sores. NEURO: Negative headache, dizziness, weakness. [facility] Past Medical History Attestation statement: The following information was validated with the patient. Source: old records reviewed and nursing notes reviewed Medical History Obesity (BMI 30-39.9) Obesity (BMI 35.0-39.9 without comorbidity) Vertigo Hypertension Bronchopneumonia Pulmonary nodule Eczema Allergies Asthma Hiatal hernia Chronic cough Family History Family History Mother No problems noted. Father No problems noted. Social History Social History Housing: House Patient Tobacco Use Status: Never used Tobacco Smoked in Last 30 Days: No e-Cigarette/Vaping Use: Never Used Use of substances other than those prescribed or required for medical reasons: No Advance Directives: No Advance Directives Information Provided: Yes service: No Current occupational status: retired Cognitive needs: No Hearing needs: No Vision needs: Yes (rx glasses) Physical Exam ED Vital Signs: Vital Signs - 24 hr 09/12/25 15:49 09/12/25 17:11 09/12/25 17:24 Temperature 97.3 F 97.4 F Pulse Rate 69 68 61 Respiratory Rate 16 14 Blood Pressure 156/69 H 141/69 H 130/66 Pulse Oximetry 95 98 Oxygen Delivery Method Room Air Room Air 09/12/25 17:27 09/12/25 17:30 09/12/25 18:28 Temperature 97.8 F Pulse Rate 65 73 62 Respiratory Rate 16 Blood Pressure 141/64 H 134/63 116/71 Pulse Oximetry 96 Oxygen Delivery Method Room Air BMI result Body Mass Index 35.7 GENERAL APPEARANCE: ?AxOx4, generally well-appearing, no acute distress. HEENT: ?NC, AT. MMM. EOMI, clear conjunctiva, oropharynx clear. NECK: ?Supple without lymphadenopathy.? No stiffness or restricted ROM. HEART:? Normal rate and regular rhythm, normal S1/S2, no m/r/g LUNGS:? CTAB, moving air well. No crackles or wheezes are heard. ABDOMEN: ?Soft, nontender, nondistended, no guarding, no rigidity BACK: No CVAT, no obvious deformity. EXTREMITIES: ?Without cyanosis, clubbing or edema. NEUROLOGICAL: ?Grossly nonfocal. Alert and oriented, moving all 4 extremities. Skin: ?Warm and dry without any rash. Medications Administered Discontinued Medications Generic Name Dose Route Start Last Admin Trade Name Freq PRN Reason Stop Dose Admin Lactated Ringer's 1,000 mls @ 500 mls/hr 09/12/25 17:53 09/12/25 20:12 Lr IV 09/12/25 19:52 Infused .Q2H ONE Infusion Medical Decision Making Medical Decision Making MDM Narrative: 85-year-old female with medical history of BPPV, HTN, CAD, eczema, asthma presents to ED due to dizziness and nausea after receiving flu and COVID shot. Patient states she woke up asymptomatic, went to get a flu and COVID shot around 11:00 a.m. then felt a sudden onset of dizziness and nausea approximately 2 hours after receiving the vaccine. Patient with recent diagnosis of BPPV, currently in vestibular PT. Patient had to drive herself to PT today due to dizziness, while in PT session was profoundly dizzy, took dramamine and was advised to come to ED by PT for further evaluation. All symptoms have resolved while in the department. VS on initial observation-156/69, pulse rate is 69, respiratory rate of 16, afebrile with oral temp of 97.3?, O2 saturation 95% on room air Labs without leukocytosis/leukopenia, H&H stable without evidence of anemia, random glucose elevated at 161, hyperbilirubinemia of 2.1, AST elevated at 35, ALT elevated at 36, no electrolyte abnormalities. EKG reveals normal sinus rhythm without significant ST-elevation/depression, T-wave abnormality, troponins x2 undetectable at <2.7, patient without chest pain- less likely ACS CT head brain without acute intracranial abnormalities. Orthostatic vital signs negative Patient was medicated with 500ml of IV fluids, and took Dramamine prior to arrival. Vital signs on Re observation reveals a BP of 116/71, pulse rate of 62, respiratory rate of 16, afebrile with oral temp of 97.8?, O2 saturation 96% on room air. Patient is dizziness and nausea has resolved. Patient is currently participating in vestibular PT for BPPV. Labs with hyperbilirubinemia of 2.1 patient is scheduled for RUQ ultrasound Saturday 09/15 for further evaluation. I counseled patient to follow up with PCP to discuss her visit today. Patient was able to get out of stretcher and ambulate to the bathroom without assistance and without dizziness/ lightheadedness or nausea. Patients symptoms most consistent with BPPV at this time. Patient is normotensive and feels well enough to go home for self care. Patient is in agreement with the plan. Differential Diagnosis ICH intracranial mass ACS Dysrhythmia BPPV electrolyte abnormality Admission/Observation Consideration of admission/observation: Escalation of care including admission/observation considered Lab Data MDM Lab Attestation statement: I reviewed the patient's lab results. 09/12/25 18:05 09/12/25 18:05 Labs: Lab Results 09/12/25 09/12/25 Range/Units 16:53 18:05 WBC 9.1 (4.8-10.8) X10*3/uL RBC 4.02 L (4.20-5.50) X10*6/uL Hgb 12.9 (12.0-16.0) g/dl Hct 37.8 (37.0-47.0) % MCV 94.0 (80.0-98.0) fL MCH 32.1 (27.0-33.0) pg MCHC 34.1 (31.0-35.0) g/dl RDW 13.8 (11.0-16.0) % Plt Count 270 (160-400) X10*3/uL MPV 9.3 L (9.4-12.3) fL Immature Gran % (Auto) 1.2 H (0.0-0.4) % Neut % (Auto) 76.1 H (45-73) % Lymph % (Auto) 10.9 L (20-40) % [place] % (Auto) 5.3 (2-11) % Eos % (Auto) 5.5 H (0-4) % Baso % (Auto) 1.0 (0-2) % Lymph # (Auto) 1.0 L (1.2-4.9) X10*3/uL [place] # (Auto) 0.5 (0.1-1.2) X10*3/uL Eos # (Auto) 0.5 H (0.0-0.4) X10*3/uL Baso # (Auto) 0.1 (0.0-0.2) X10*3/uL Abs Immat Gran (auto) 0.11 H (0.00-0.03) X10*3/uL Absolute Neuts (auto) 6.9 (2.0-8.3) x10*3/uL Absolute Nucleated RBC 0.000 (0.0-0.012) X10*3/uL Nucleated RBC % (auto) 0.0 (0.0-0.2) /100WBC Hold Purple Top SEE NOTE PT 12.2 (10.9-12.4) SEC INR 1.1 (0.9-1.1) APTT 26.0 L (26.7-34.1) SEC Sodium 143 (135-145) mmol/L Potassium 4.0 (3.3-5.1) mmol/L Chloride 110 H (96-108) mmol/L Carbon Dioxide 25 (22-29) mmol/L Anion Gap 12 (12-20) BUN 16 (9-16) mg/dL Creatinine 0.71 (0.5-1.4) mg/dL Estim Creat Clear Calc 57.3 Estimated GFR > 60 Random Glucose 161 H (60-115) mg/dL Calcium 9.1 (8.4-10.2) mg/dL Total Bilirubin 2.1 H (0.0-1.0) mg/dL AST 35 H (5-31) U/L ALT 37 H (0-31) U/L Alkaline Phosphatase 66 (39-117) U/L Troponin I High Sens < 2.7 (<3.5-17.0) ng/L Total Protein 7.0 (6.5-8.0) g/dL Albumin 4.6 (3.5-5.0) g/dL Independent Interpretation I performed an independent interpretation of an: EKG and CT Scan Interpretation: EKG reveals normal sinus rhythm without significant ST-elevation/depression, T-wave abnormality, prolonged QT Vent. Rate : 69 BPM Atrial Rate : 69 BPM P-R Int : 172 ms QRS Dur : 86 ms QT Int : 418 ms P-R-T Axes : 28 -16 10 degrees QTcB Int : 447 ms Normal sinus rhythm Minimal voltage criteria for LVH, may be normal variant ( R in aVL ) Borderline ECG When compared with ECG of 16-Jun-2025 18:55, No significant change was found I personally interpreted the CT head/brain which was negative for acute intracranial abnormalities, I agree with the radiologist's interpretation Radiology Impression Discussion of test interpretation with radiology: I have reviewed the radiologist's reading. Radiologist Impression: CT head brain FINDINGS: There is no evidence of intracranial hemorrhage or extra-axial fluid collection. There is no mass effect, or edema. No CT evidence of acute territorial infarct. Ventricles, sulci, and cisterns are normal in size and configuration for patient age. No hydrocephalus. No midline shift. Negative hyperdense MCA sign. Negative insular ribbon sign. Patchy periventricular and deep white matter hypoattenuation is consistent with mild to moderate small vessel ischemic changes. Normal pituitary. Atheromatous calcification of the bilateral carotid siphons and V4 segments vertebral arteries bilaterally. Globes and orbital contents image normally. There are bilateral lens replacement. No extracranial soft tissue abnormalities. The paranasal sinuses, mastoid air cells, and tympanic cavities are normally aerated. No suspicious bony abnormalities. There are no acute fractures evident. Mild hyperostosis frontalis. CT/CT head/brain wo IV con IMPRESSION: No acute intracranial abnormality. Electronically signed by: Zeeshan Quinones MD 09/12/2025 04:57 PM EDT Dictated By: Zeeshan Quinones MD Signed By: <Electronically signed by Zeeshan Quinones MD in OV> 09/12/25 [id number] External Record Review External record reviewed: Inpatient record, Office record and Outpatient record Chronic Conditions Patient?s care impacted by: Hypertension and Other (BPPV, CAD, eczema, asthma) Discharge Plan Discharge Clinical Impression: Benign paroxysmal positional vertigo Patient Disposition: Home, Self-Care Additional Instructions: You were evaluated in the ED today due to dizziness and nausea. Your EKG revealed normal sinus rhythm, your troponins which is an enzyme that the heart gives off while under stress or damage were both undetectable. The CT of your head brain did not show any emergent intracranial abnormalities. Your lab work today was mostly normal, however does show an elevated bilirubin, however you know about this and are getting an ultrasound on the abdomen for further evaluation on Monday. You were given 1L of IV fluids, and your symptoms had already resolved by the time I saw you to evaluate you. You were able to ambulate in the department without dizziness or nausea. I recommend that you take your medication when you start to feel ?off? when you can, however please follow your physical therapists instructions and did not take your medication prior to your physical therapy sessions. Please return to the emergency department if you experience worsening dizziness, headaches, visual changes, lightheadedness, chest pain, shortness of breath, or any new/worsening/concerning symptoms. Prescriptions: No Action fluticasone propion-salmeterol [Wixela Inhub] 250-50 mcg/dose blister with device 1 inh inhalation Q12H 30 Days Qty: 60 11RF aspirin 81 mg tablet,delayed release (DR/EC) 81 mg PO DAILY metoprolol tartrate 25 mg tablet 25 mg PO BID isosorbide mononitrate 60 mg tablet extended release 24 hr 60 mg PO DAILY atorvastatin 20 mg tablet 40 mg PO DAILY losartan 50 mg tablet 50 mg PO DAILY Qty: 90 3RF amlodipine 2.5 mg tablet 2.5 mg PO DAILY meclizine 12.5 mg tablet 12.5 mg PO TID PRN (Reason: dizziness) Qty: 60 2RF Interventions: ED Discharge Assessment Last Done: 09/12/25 20:56 Discharge Date/Time: 09/12/25 20:57 Print Language: Welsh
--- NOTE | 2025-09-12 16:32 | ECG_ITS ---
Test Reason : DIZZINESS Blood Pressure : */* mmHG Vent. Rate : 69 BPM Atrial Rate : 69 BPM P-R Int : 172 ms QRS Dur : 86 ms QT Int : 418 ms P-R-T Axes : 28 -16 10 degrees QTcB Int : 447 ms Normal sinus rhythm Minimal voltage criteria for LVH, may be normal variant ( R in aVL ) Borderline ECG When compared with ECG of 16-Jun-2025 18:55, No significant change was found Referred By: Braden Moeller Electronically Signed By: Norman Coffman
[2025-09-12 17:34] LABS: INTERNATIONAL NORM RATIO 1.1 (0.9-1.1); Prothrombin Time 12.2 SEC (10.9-12.4)
[2025-09-12 17:36] LABS: Partial Thromboplastin Time 26.0 SEC (26.7-34.1)
[2025-09-12 17:50] LABS: Troponin-I High Sensitivity < 2.7 ng/L (<3.5-17.0)
[2025-09-12 18:09] LABS: MANUAL DIFF FLAG NO
[2025-09-12] MEDS: Lactated Ringers 1,000 ML 500 ML IV (18:12)
--- OUTSIDE RECORDS SUMMARY | 2025-09-12 18:34 | XMS_ITS | Data Portability ---
Author Organization [place] Selvin Bowman [facility], [facility] Address [address] [place] [address] Care Team Providers Care Electronics Commodity Manager Name Role Phone RAMON HERNANDEZ Primary Care Provider [phone] Assessment Encounter Date Assessment Date Assessment LastModified [...] X-rays reviewed in the office today on [facility] PACS: Weight bearing AP of Both knees, Steinberg view of Both Knees, Lytle View of Both Knees, and Lateral of the Left knee; demonstrate Severe end-stage osteoarthritis of the Left knee. There is [id number] articulation laterally, subchondral sclerosis, osteophyte formation. There [...] I recommended that she follow-up with her childhood teacher at [facility] she obtained provisional medical clearance. Once she has been medically cleared for surgical intervention she will call us and we will proceed with skin doing for total knee arthroplasty. I attempted to answer all of her questions today in the office. [email or web address] Not available 06/21/2024 16:48:49 Plan of Treatment Reminders Order Date Submit Date Provider Last Modified By Organization Details Last Modified Time Details Appointments None recorde d. Lab None recorde d. Referral None recorde d. Procedures None recorde d. Surgeries None recorde d. Imaging XR, knee, 4 or more view - rm 206 R knee pain, wants sx 024 06/21/20 24 [email or web address] [facility] Office, [address], [place], [address], 4 09:37:34 Medication Orders None recorde d. Patient TargetsNo targets recorded. Patient InstructionsNo instructions recorded. Reason for Referral None Reported. Problems Name Problem SNOMED Code Status Onset Date Resolution Date Notes Provider Name and Address Organization Details Recorded Time No complaints [id number] Active Status : 'I'; Not Available [facility] 4 09:12:53 Problem Notes None recorded. Medical Equipment None Reported. Allergies Allergen ID Allergen Name Allergen Category Reaction Reaction Severity Criticality Documentation Date Start Date Code Code System Note Provider Name and Address Organization Details Recorded Time 89550 latex environme nt,medica tion Not available Not available Not available 01/29/20242016 88831 91 RxNorm Not Available [facility] 4 13:10:48 Medications Name Sig Start Date Stop Date Status Note LastModified by Organization Details LastModified Time losartan 50 mg tablet TAKE 1 TABLET BY MOUTH EVERY DAY active Not Available Not Available No t Available amoxicillin 500 mg capsule TAKE 4 CAPSULES BY MOUTH ONE HOUR PRIOR TO DENTAL WORK 2024 active Not Available Not Available Not Alyson labdamián atorvastatin 40 mg tablet TAKE 1 TABLET [...] Updated DateTime 06/21/2024 152.4 cm 37.1 kg/m2 14072.55 g NANCY HILLIARD [place] - [facility] 06/21/2024 13:50:15 Social History None recorded. Functional Status None recorded. Mental Status None recorded. Family History Nothing Reported. Medical History No medical history recorded. Gynecological HistoryNo gynecological history recorded. Obstetrics History GPAL:G 0 P 0 0 0 0 Past Encounters Encounter ID Performer Location Encounter Start Date Encounter Closed Date Diagnosis/Indication Diagnosis SNOMED-CT Code Diagnosis ICD10 Code Diagnosis IMO Codes Diagnosis Note [id number] [facility] [address] [place] [address] 06/21/2024 13:35:03 07/11/2024 09:37:33 Pain of right knee joint [id number] 72874 M25.561 Health Concerns Section Related Observation LastModified by Organization Detai ls LastModified Time None Recorded Concern Status LastModified by Organization Details LastModified Time None Recorded Advance Directives Directive None Recorded Payers Insurance Date Sequence Insurance Name Policy Number Policy Negron Covered Member ID Negron Member ID Guarantor Name 06/21/2024 1 [place] [employer] Julita Pimentel [id number] Julita Pimentel 07/11/2024 2 [place] [id number] Julita Pimentel [id number] Julita Pimentel OBGyn Episode No OBEpisode recorded.
[2025-09-12 18:35] LABS: Hematocrit 37.8 % (37.0-47.0); Hemoglobin 12.9 g/dl (12.0-16.0); Imm Gran Abs Auto 0.11 X10*3/uL (0.00-0.03); Imm Gran Pct Auto 1.2 % (0.0-0.4); Lymphocytes Absolute Auto 1.0 X10*3/uL (1.2-4.9); Mean Corpuscular HGB Conc 34.1 g/dl (31.0-35.0); Mean Corpuscular Hemoglobin 32.1 pg (27.0-33.0); Mean Corpuscular Volume 94.0 fL (80.0-98.0); NRBC Abs Auto 0.000 X10*3/uL (0.0-0.012); NRBC Pct Auto 0.0 /100WBC (0.0-0.2); Platelet Count 270 X10*3/uL (160-400); Red Blood Count 4.02 X10*6/uL (4.20-5.50); White Blood Count 9.1 X10*3/uL (4.8-10.8)
--- OUTSIDE RECORDS SUMMARY | 2025-09-12 18:35 | XMS_ITS | Patient Health Record ---
Author Organization [facility] Address [address] [facility] [address] [facility] [place] [address] Care Team Providers Care Aluminum Pool Installer Name Role Phone Yanely Otero Unavailable [phone] Allergies No Known Allergies Reason For Referral [...] 08/12/2025 Encounters Encounter Location Date Provider Diagnosis [address] [address] 09/24/2024 Yanely Perica Ingrown nail L60.0 and Cellulitis of toe of left foot L03.[address] [address] 11/13/2024 Yanely Perica Tinea unguium B35.1 ; Xerosis of skin L85.3 ; Pain in right toe(s) M79.674 and Pain in left toe(s) M79.[address] [address] 01/24/2025 Yanely Perica Tinea unguium B35.1 ; Xerosis of skin L85.3 ; Pain in right toe(s) M79.674 and Pain in left toe(s) M79.[address] [address] 04/01/2025 Yanely Perica Pain in right toe(s) M79.674 ; Onychomycosis B35.1 and Pain in left toe(s) M79.[address] [address] 06/06/2025 Yanely Perica Pain in right toe(s) M79.674 ; Onychomycosis B35.1 and Pain in left toe(s) M79.675 [facility] [place] [address] [place] [address] 08/12/2025 Yanely Perica Pain in right toe(s) M79.674 ; Onychomycosis B35.1 and Pain in left toe(s) M79.675 [facility] [place] [address] [address] 09/20/2024 Yanely Perica Cellulitis of right toe [...] 09/27/2023 Next Appt Details Provider Name:Yanely lambert, 10/15/2025 11:00:00 AM, [address] [place] [address], [phone], Provider Name:Yanely lambert, 12/24/2025 11:00:00 AM, [address] [place] [address], [phone], Insurance Providers Payer Name Payer Address Payer Phone Subscriber Number Group Number Insured Name Patient Relationship to Insured Coverage Start Date Coverage End Date Medicare National Govt [facility] [address] [place] [address] [id number] Julita Pimentel Self - patient is the insured [employer] Blue [employer] [address] [place] [address] [id number] Julita Pimentel Self - patient is the insured Medical (General) History Medical History History ICD Code Arthritis Back,Hip,and Knee pain CAD (Cholesterol) High blood pressure Psoriasis/eczema Joint implants/screws Surgical History Surgery Date(Month/Year) 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
[2025-09-12 18:39] LABS: Alanine Aminotransferase 37 U/L (0-31); Albumin Level 4.6 g/dL (3.5-5.0); Alkaline Phosphatase 66 U/L (39-117); Anion Gap 12 (12-20); Aspartate Amino Transferase 35 U/L (5-31); Blood Urea Nitrogen 16 mg/dL (9-16); Calcium 9.1 mg/dL (8.4-10.2); Carbon Dioxide 25 mmol/L (22-29); Chloride 110 mmol/L (96-108); Creatinine Clr Calc Pharmacy 57.3; Estimated Glomerular Filt Rate > 60; Potassium 4.0 mmol/L (3.3-5.1); Sodium 143 mmol/L (135-145); Total Protein 7.0 g/dL (6.5-8.0)
== END 2025-09-12 20:57 | disposition home or self-care (01) ==
PROVIDERS: Physician Assistant; Emergency Provider Emergency Medicine; PCP Physician Assistant Medical
DX: H81.13 Benign paroxysmal vertigo, bilateral (principal); R11.0 Nausea; I25.10 Atherosclerotic heart disease of native coronary artery without angina pectoris; R94.31 Abnormal electrocardiogram [ECG] [EKG]; Z51.81 Encounter for therapeutic drug level monitoring; Z79.899 Other long term (current) drug therapy
CPT/HCPCS: 36415; 70450; 80053; 84484; 85025; 85610; 85730; 93005; 96360; 96361; 99284; 99285; J7120

== ENCOUNTER → 2025-09-12 16:32 | Outpatient (BNV) | payer MEDICARE, SELFPAY | PROVIDERS: Emergency Provider Emergency Medicine; PCP Physician Assistant Medical; Visit Provider Internal Medicine Cardiovascular Disease | DX: R42 Dizziness and giddiness (principal) | CPT/HCPCS: 93010 ==

== ENCOUNTER → 2025-09-12 16:32 | Outpatient (BNV) | payer MEDICARE, SELFPAY | PROVIDERS: PCP Physician Assistant Medical; Visit Provider Radiology Diagnostic Radiology | DX: Z03.89 Encounter for observation for other suspected diseases and conditions ruled out (principal) | CPT/HCPCS: 70450 ==

== ENCOUNTER 2025-09-15 09:51 | Outpatient (REF) | payer MEDICARE, SELFPAY ==
--- NOTE | ~2025-09-15 | US_ITS ---
CLINICAL HISTORY: R17 - Unspecified jaundice US abdomen limited with color Doppler Comparison: None Findings: Visualized pancreas is normal. Tail obscured by bowel gas. Liver is normal in size and mildly echogenic. Right lobe length 16.8 cm. No focal hepatic masses. Common duct 2.4 mm diameter. Dependent gallstone. No gallstones, sludge or wall abnormalities. No gallbladder wall thickening. No pericholecystic fluid. No sonographic Lopez sign. Right kidney measures, 9.9 cm in length. Normal cortical width and echotexture. No hydronephrosis calculus or mass. Benign renal cortical cyst midpole measuring 1.0 x 0.7 x 0.9 cm Impression: 1. Echogenic liver reflecting hepatic steatosis or diffuse hepatocellular disease. 2. Cholelithiasis without evidence of cholecystitis 3. Benign renal cortical cysts on the right This document has been electronically signed by: Kb Hayes MD on 09/16/2025 12:20:42
== END 2025-09-15 09:52 | disposition home or self-care (01) ==
LOC: HO.HMGCX 09:51
PROVIDERS: Visit Provider Internal Medicine
DX: Z13.89 Encounter for screening for other disorder (principal)
CPT/HCPCS: 76705

== ENCOUNTER 2025-09-17 20:00 | Inpatient (IN) | payer MEDICARE, SELFPAY ==
--- OUTSIDE RECORDS SUMMARY | 2024-06-19 07:30 | XMS_ITS ---
Author Organization [facility] Address [address] [place] [phone] Care Team Providers Care Deputy Sheriff/Investigator Name Role Phone Yanely Otero Unavailable [phone] Problems No Known Problems Encounters Encounter Location Date Provider Diagnosis [address] [address] 06/19/2024 Yanely Otero Plan Of Treatment Next Appt Details Provider Name:Yanely lambert, 10/15/2025 11:00:00 AM, [address] [place] [address], [phone], Provider Name:Yanely lambert, 12/24/2025 11:00:00 AM, [address] [place] [address], [phone], Progress Notes * Julita PIMENTEL MDOB:[birth year] (85 yo F)Acc No.[id number]:06/19/2024 Progress Note Patient: El Julita NICHOLE Provider: Hugh Otero DPM :1940 A ge:84 Y S ex:Female Date:06/19/2024 [id number] Subjective: * Chief Complaints: * * Medical [...] 0 06/19/2024 Generated for Terry Mao/Namita on: 1 10:45 PM EDT
--- NOTE | ~2025-09-17 | NM_ITS ---
EXAMINATION: NM HEPATOBILIARY WITHOUT PHARM HISTORY: ?cholecystitis. TECHNIQUE: An hepatobiliary scan was performed following the intravenous administration of 5 mCi technetium 99m-mebrofenin. Sequential images were obtained to 1 hour. COMPARISON: Correlation is made with a CT of the abdomen with contrast dated 09/17/2025. FINDINGS: There is normal uptake and excretion of the radiopharmaceutical by the liver. Gallbladder activity is noted at 12 minutes. Common bile duct activity is seen at 20 minutes. Small bowel activity is noted at 22 minutes. NM/NM hepatobiliary wo pharm IMPRESSION: Normal hepatobiliary scan. Electronically signed by: Zay Rivers MD 09/18/2025 12:13 PM EDT
--- NOTE | ~2025-09-17 | CT_ITS ---
CLINICAL HISTORY: pain, lower belly, diverticulitis CT abdomen and pelvis with contrast Comparison: None provided Findings: Small hiatal hernia. Fat containing femoral hernias bilaterally. Calcified granuloma in the left lung. 4 mm nodule right lower lobe. Atelectasis. Right middle lobe nodule measuring 7 mm. Per Fleischner criteria: Low-risk patients: CT at 3-6 months, then consider CT at 18-24 months. High-risk patients: CT at 3-6 months, then CT at 18-24 months. Cardiomegaly without significant pericardial effusion. Coronary artery calcifications. Hepatomegaly. Mildly distended gallbladder with a large 3.9 cm gallstone with possible mild wall thickening. Small left adrenal gland 1 cm macroscopic fatty lesion adenoma or lipoma. Bilateral perinephric stranding, nonspecific. Small right-sided hypodense renal cysts. Colonic diverticulosis with peridiverticular inflammatory changes and fluid stranding noted in the sigmoid colon, consistent with diverticulitis. No evidence of free air or peridiverticular collections. Pancolonic mural thickening may reflect superimposed colitis. No bowel obstruction. Anteverted uterus. Prominent fluid-filled uterine cavity measuring 1 cm expected for age. Sooner follow-up ultrasound or pelvic MRI. Normal appendix. Osteopenia with diffuse multilevel spondylosis. Grade 1 anterolisthesis at L4-L5. High-grade stenoses origin of the SMA. IMPRESSION: 1. Distended gallbladder with a large gallstone and possible wall thickening. Consider follow-up ultrasound. 2. Uncomplicated sigmoid diverticulitis. 3. Suspect superimposed pancolitis. This document has been electronically signed by: Nishant Hernandez MD on 09/18/2025 00:33:15
[2025-09-17 20:07] VITALS: BP 144/92; PULSE 88; O2SAT 98
[2025-09-17 20:13] VITALS: BP 168/74; PULSE 76; RESP 12; TEMP 36.4; O2SAT 98; BMI 30.4
[2025-09-17 20:18] VITALS: BP 168/74; PULSE 76; RESP 12; TEMP 36.4; O2SAT 98
[2025-09-17 20:49] LABS: MANUAL DIFF FLAG NO
[2025-09-17 20:54] LABS: Hematocrit 37.2 % (37.0-47.0); Hemoglobin 12.5 g/dl (12.0-16.0); Imm Gran Abs Auto 0.04 X10*3/uL (0.00-0.03); Imm Gran Pct Auto 0.4 % (0.0-0.4); Lymphocytes Absolute Auto 1.3 X10*3/uL (1.2-4.9); Mean Corpuscular HGB Conc 33.6 g/dl (31.0-35.0); Mean Corpuscular Hemoglobin 31.4 pg (27.0-33.0); Mean Corpuscular Volume 93.5 fL (80.0-98.0); NRBC Abs Auto 0.000 X10*3/uL (0.0-0.012); NRBC Pct Auto 0.0 /100WBC (0.0-0.2); Platelet Count 252 X10*3/uL (160-400); Red Blood Count 3.98 X10*6/uL (4.20-5.50); White Blood Count 10.2 X10*3/uL (4.8-10.8)
[2025-09-17 21:15] LABS: Alanine Aminotransferase 29 U/L (0-31); Albumin Level 4.6 g/dL (3.5-5.0); Alkaline Phosphatase 62 U/L (39-117); Anion Gap 15 (12-20); Aspartate Amino Transferase 31 U/L (5-31); Blood Urea Nitrogen 14 mg/dL (9-16); Calcium 9.3 mg/dL (8.4-10.2); Carbon Dioxide 24 mmol/L (22-29); Chloride 108 mmol/L (96-108); Creatinine Clr Calc Pharmacy 70.8; Estimated Glomerular Filt Rate > 60; Potassium 4.1 mmol/L (3.3-5.1); Sodium 143 mmol/L (135-145); Total Protein 7.1 g/dL (6.5-8.0)
[2025-09-17 22:13] LABS: Appearance Urine Clear; Glucose Urine UA Negative (Negative); PH 6.5 (5.0-9.0); Specific Gravity - Urine 1.015 (1.005-1.025)
[2025-09-17 22:15] VITALS: BP 160/72; PULSE 78; TEMP 36.4; O2SAT 96
[2025-09-17] MEDS: iohexoL 350 MG/ML 100 ML INFUS..BTL 85 ML IV (22:29)
--- OUTSIDE RECORDS SUMMARY | 2025-09-17 22:45 | XMS_ITS | Clinical Summary ---
Author Organization [facility] Address [address] [place] [address] Phone Care Team Providers Care Electrical Assemblies Supervisor Name Role Phone Maximo Vines MD Primary Care Provider [phone] Allergies No known active allergies Medications metoprolol [...] Assessment & Plan: Patient has history of NM in the past as noted on previous [...] Type Department Care Team Description 07/03/2025 Telephone [facility] [address] [place] [address] Maximo Vines MD from Last [...] age to complete this topic Insurance MEDICARE [facility] Care Teams Electrical Assemblies Supervisor Relationship Specialty Start Date End Date Maximo Vines MD [address] [place] [address] [address] [place] PCP - General Internal Medicine 03/21/22
--- OUTSIDE RECORDS SUMMARY | 2025-09-17 22:46 | XMS_ITS | Patient Health Record ---
Author Organization [facility] Address [address] [facility] [address] [facility] [place] [address] Care Team Providers Care Medical Office Clerk Name Role Phone Yanely Otero Unavailable [phone] Allergies No Known Allergies Reason For Referral [...] 08/12/2025 Encounters Encounter Location Date Provider Diagnosis [address] [address] 09/24/2024 Yanely Perica Ingrown nail L60.0 and Cellulitis of toe of left foot L03.[address] [address] 11/13/2024 Yanely Perica Tinea unguium B35.1 ; Xerosis of skin L85.3 ; Pain in right toe(s) M79.674 and Pain in left toe(s) M79.[address] [address] 01/24/2025 Yanely Perica Tinea unguium B35.1 ; Xerosis of skin L85.3 ; Pain in right toe(s) M79.674 and Pain in left toe(s) M79.[address] [address] 04/01/2025 Yanely Perica Pain in right toe(s) M79.674 ; Onychomycosis B35.1 and Pain in left toe(s) M79.[address] [address] 06/06/2025 Yanely Perica Pain in right toe(s) M79.674 ; Onychomycosis B35.1 and Pain in left toe(s) M79.675 [facility] [place] [address] [place] [address] 08/12/2025 Yanely Perica Pain in right toe(s) M79.674 ; Onychomycosis B35.1 and Pain in left toe(s) M79.675 [facility] [place] [address] [address] 09/20/2024 Yanely Perica Cellulitis of right toe [...] Details Provider Name:Yanely lambert, 10/15/2025 11:00:00 AM, [address] [place] [address], [phone], Provider Name:Yanely lambert, 12/24/2025 11:00:00 AM, [address] [place] [address], [phone], Insurance Providers Payer Name Payer Address Payer Phone Subscriber Number Group Number Insured Name Patient Relationship to Insured Coverage Start Date Coverage End Date Medicare National Govt Sv[facility]opher [facility] [address] [place] [address] [id number] Julita Pimentel Self - patient is the insured [employer] [address] [place] [address] [id number] Julita Pimentel Self - patient is the insured Medical (General) History Medical History History ICD Code Arthritis Back,Hip,and Knee pain CAD (Cholesterol) High blood pressure Psoriasis/eczema Joint implants/screws Surgical History Surgery Date(Month/Year) 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
--- OUTSIDE RECORDS SUMMARY | 2025-09-17 22:46 | XMS_ITS | Data Portability ---
Author Organization [place] Selvin Bowman [facility] Address [address] [place] [address] Care Team Providers Care Hydraulic Technician Name Role Phone RAMON HERNANDEZ Primary [...] X-rays reviewed in the office today on [facility] PACS: Weight bearing AP of Both knees, Steinberg view of Both Knees, Vergas View of Both Knees, and Lateral of the Left knee; demonstrate Severe end-stage osteoarthritis of the Left knee. There is arym-jv-kczw articulation laterally, subchondral sclerosis, osteophyte formation. There [...] I recommended that she follow-up with her activities director at [facility] she obtained provisional medical clearance. Once she has been medically cleared for surgical intervention she will call us and we will proceed with skin doing for total knee arthroplasty. I attempted to answer all of her questions today in the office. Not available 06/21/2024 16:48:49 Plan of Treatment Reminders Order Date Submit Date Provider Last Modified By Organization Details Last Modified Time Details Appointments None recorde d. Lab None recorde d. Referral None recorde d. Procedures None recorde d. Surgeries None recorde d. Imaging XR, knee, 4 or more view - rm 206 R knee pain, wants sx 024 06/21/20 [email or web address] [facility] Office, [address] [facility] [facility] [address], [place], [address], 4 09:37:34 Medication Orders None recorde d. Patient TargetsNo targets recorded. Patient InstructionsNo instructions recorded. Reason for Referral None Reported. Problems Name Problem SNOMED Code Status Onset Date Resolution Date Notes Provider Name and Address Organization Details Recorded Time No complaints 001211946 Active Status : 'I'; Not Available [facility] 4 09:12:53 Problem Notes None recorded. Medical Equipment None Reported. Allergies Allergen ID Allergen Name Allergen Category Reaction Reaction Severity Criticality Documentation Date Start Date Code Code System Note Provider Name and Address Organization Details Recorded Time 48100 latex environme nt,medica tion Not available Not available Not available 01/29/20242016 52736 91 RxNorm Not Available [facility] 4 13:10:48 Medications Name Sig Start [...] Updated DateTime 06/21/2024 152.4 cm 37.1 kg/m2 35988.55 g NANCY HILLIARD [place] [facility] [place] [facility] 06/21/2024 13:50:15 Social History None recorded. Functional Status None recorded. Mental Status None recorded. Family History Nothing Reported. Medical History No medical history recorded. Gynecological HistoryNo gynecological history recorded. Obstetrics History GPAL:G 0 P 0 0 0 0 Past Encounters Encounter ID Performer Location Encounter Start Date Encounter Closed Date Diagnosis/Indication Diagnosis SNOMED-CT Code Diagnosis ICD10 Code Diagnosis IMO Codes Diagnosis Note [id number] [facility] [address] [place] [address] 06/21/2024 13:35:03 07/11/2024 09:37:33 Pain of right knee joint 1830172201 18172 M25.561 Health Concerns Section Related Observation LastModified by Organization Detai ls LastModified Time None Recorded Concern Status LastModified by Organization Details LastModified Time None Recorded Advance Directives Directive None Recorded Payers Insurance Date Sequence Insurance Name Policy Number Policy Negron Covered Member ID Negron Member ID Guarantor Name 06/21/2024 1 [place] [employer] Julita Pimentel [id number] Julita Pimentel 07/11/2024 2 [place] [id number] Julita Pimentel [id number] Julita Pimentel OBGyn Episode No OBEpisode recorded.
[2025-09-18] VITALS (9 sets, daily range): BP systolic 110–151; BP diastolic 50–71; PULSE 70–85; RESP 12–22; TEMP 36.4–37.4; O2SAT 95–100
--- NOTE | 2025-09-18 00:09 | PC.NURSE ---
Took over care from JUANJOSE Meeks pt resting in bed.
--- NOTE | 2025-09-18 00:24 | PC.NURSE ---
pt medicated per mar, pt repositioned, pure wick .
--- NOTE | 2025-09-18 00:47 | ED.GENADULT ---
HPI - General Adult General Chief complaint: Nausea/Vomiting/Diarrhea Stated complaint: dizzy, N/V x2 hrs Time Seen by Provider: 09/17/25 21:20 Source: patient Limitations: no limitations History of Present Illness ED Provider: Alaina Bolton PA-C HPI narrative: 85-year-old female with a history of hypertension, hyperlipidemia, prediabetes, known coronary artery disease, asthma, hyperbilirubinemia, morbid obesity, and vertigo, presents with multiple complaints. Patient states that she has been amidst vestibular therapy for the past 10 days secondary to her known underlying vertigo. Patient states today she received a treatment, when she returned home, she developed lower abdominal discomfort with the acute nausea vomiting diarrhea. Her vertigo symptoms have been refractory since the onset of the nausea vomiting diarrhea. Patient has tried Dramamine and meclizine at home without relief of symptoms. Patient denies recent hospitalization, use of antibiotics or travel. No known sick contacts with similar symptoms. Related Data Home Medications ?Medication ?Instructions ?Recorded ?Confirmed aspirin 81 mg tablet,delayed 81 mg PO DAILY 02/01/23 09/18/25 release isosorbide mononitrate 60 mg 60 mg PO DAILY 02/01/23 09/18/25 tablet,extended release 24 hr metoprolol tartrate 25 mg tablet 25 mg PO BID 02/01/23 09/18/25 atorvastatin 20 mg tablet 40 mg PO DAILY 05/31/23 09/18/25 amlodipine 2.5 mg tablet 2.5 mg PO DAILY 08/30/24 09/18/25 Previous Rx's ?Medication ?Instructions ?Recorded fluticasone 250 mcg-salmeterol 50 1 inh inhalation Q12H 30 days #60 05/09/25 mcg/dose blistr powdr for ea inhalation (Wixela Inhub) losartan 50 mg tablet 50 mg PO DAILY #90 tabs 05/22/25 meclizine 12.5 mg tablet 12.5 mg PO TID PRN dizziness #60 09/04/25 tabs Allergies Allergy/AdvReac Type Severity Reaction Status Date / Time latex (LATEX) Allergy Unknown UNSURE Verified 09/17/25 20:17 [facility] Past Medical History Medical History Obesity (BMI 30-39.9) Obesity (BMI 35.0-39.9 without comorbidity) Vertigo Hypertension Bronchopneumonia Pulmonary nodule Eczema Allergies Asthma Hiatal hernia Chronic cough Family History Family History Mother No problems noted. Father No problems noted. Social History Social History Housing: House Patient Tobacco Use Status: Never used Tobacco Smoked in Last 30 Days: No e-Cigarette/Vaping Use: Never Used Use of substances other than those prescribed or required for medical reasons: No Advance Directives: No Advance Directives Information Provided: Yes Do you have a plan to hurt others: No Plan service: No Current occupational status: retired Cognitive needs: No Hearing needs: No Vision needs: Yes (rx glasses) Physical Exam ED Vital Signs: Vital Signs - 24 hr 09/17/25 20:13 09/17/25 20:18 09/17/25 22:15 Temperature 97.6 F 97.6 F 97.6 F Pulse Rate 76 76 78 Respiratory Rate 12 12 Blood Pressure 168/74 H 168/74 H 160/72 H Pulse Oximetry 98 98 96 Oxygen Delivery Method Room Air Room Air Room Air 09/18/25 00:03 Temperature 97.5 F Pulse Rate 78 Respiratory Rate 22 H Blood Pressure 135/62 Pulse Oximetry Oxygen Delivery Method Room Air BMI result Body Mass Index 30.4 Const Other: Ill in appearance, not wanting to open her eyes Orientation/consciousness: patient oriented x3 Eyes Other: Nystagmus noted Resp Effort & Inspection: normal respiratory effort Cardio Other: Normal peripheral perfusion GI Other: Generalized tenderness across lower abdomen without guarding noted most central Skin Other: Warm dry no rash Neuro General: patient oriented x3, gait normal, no focal motor deficits and CN's II-XI intact bilaterally Psych Other: Cooperative NIH Stroke Scale Level of Consciousness: Alert Level of Consciousness Questions: Answers both questions correctly Level of Consciousness Commands: Performs both tasks correctly Best Gaze: Normal Visual: No visual loss Facial Palsy: Normal Motor Arm (Right): No drift Motor Arm (Left): No drift Motor Leg (Right): No drift Motor Leg (Left): No drift Limb Ataxia: Absent Sensory: Normal Best Language: No aphasia Dysarthia: Normal Extinction and Inattention: No abnormality Score: 0 Course Course Course Narrative: Nausea remains refractory, we will try Versed Reevaluation(s) Reevaluation #1: Nystagmus resolved after Versed Medications Administered Discontinued Medications Generic Name Dose Route Start Last Admin Trade Name Bernardino PRN Reason Stop Dose Admin Sodium Chloride 500 mls @ 500 mls/hr 09/17/25 21:56 09/17/25 23:10 Ns IV 09/17/25 22:55 Infused .Q1H ONE Infusion Iohexol 85 ml 09/17/25 22:28 09/17/25 22:29 Iohexol 350 Mg/Ml 100 Ml Infus..Btl IV 09/17/25 22:29 85 ml ONCE ONE Administration Meclizine HCl 25 mg 09/17/25 21:56 09/17/25 22:08 Meclizine Hcl 25 Mg Tablet PO 09/17/25 21:57 25 mg ONCE ONE Administration Midazolam HCl 2 mg 09/18/25 00:16 09/18/25 00:20 Midazolam Hcl 2 Mg/2 Ml Vial IVPUSH 09/18/25 00:17 2 mg ONCE ONE Administration Ondansetron HCl 4 mg 09/17/25 21:56 09/17/25 22:08 Ondansetron Hcl 4 Mg/2 Ml Vial IVPUSH 09/17/25 21:57 4 mg ONCE ONE Administration Medical Decision Making Medical Decision Making [facility] Narrative: 85-year-old female with a history of hypertension, hyperlipidemia, prediabetes, known coronary artery disease, asthma, hyperbilirubinemia, morbid obesity, and vertigo, presents with multiple complaints. Patient states that she has been amidst vestibular therapy for the past 10 days secondary to her known underlying vertigo. Patient states today she received a treatment, when she returned home, she developed lower abdominal discomfort with the acute nausea vomiting diarrhea. Her vertigo symptoms have been refractory since the onset of the nausea vomiting diarrhea. Patient has tried Dramamine and meclizine at home without relief of symptoms. Patient denies recent hospitalization, use of antibiotics or travel. No known sick contacts with similar symptoms. Problem: Age, known coronary artery disease, known vertigo History: Per patient I have considered the following differential diagnoses: Vertigo, posterior circulation CVA, viral gastroenteritis, C diff, traveler's diarrhea, diverticulitis Plan: In regard to the dizziness, her symptoms are consistent with vertigo, we will give both IV Zofran and try p.o. meclizine at a higher dose. I do not feel this is posterior circulation CVA, the patient has nystagmus, she has known vertigo, her symptoms are quite vertiginous at this time, she also states she has been previously worked up for stroke in the past. She does have palpable pain on exam, we will obtain a CT scan of the abdomen and pelvis to rule out potential diverticulitis. She technically has no risk factors for C diff or traveler's diarrhea, sounds as if she has no sick contacts with similar symptoms to suggest a viral gastroenteritis. You have independently reviewed the following tests: Labs: No leukocytosis, left shift noted, not anemic, no electrolyte abnormality, bilirubin at baseline, no additional bump in LFTs, urine not in fact CT abdomen and pelvis: Findings: Small hiatal hernia. Fat containing femoral hernias bilaterally. Calcified granuloma in the left lung. 4 mm nodule right lower lobe. Atelectasis. Right middle lobe nodule measuring 7 mm. Per Fleischner criteria: Low-risk patients: CT at 3-6 months, then consider CT at 18-24 months. High-risk patients: CT at 3-6 months, then CT at 18-24 months. Cardiomegaly without significant pericardial effusion. Coronary artery calcifications. Hepatomegaly. Mildly distended gallbladder with a large 3.9 cm gallstone with possible mild wall thickening. Small left adrenal gland 1 cm macroscopic fatty lesion adenoma or lipoma. Bilateral perinephric stranding, nonspecific. Small right-sided hypodense renal cysts. Colonic diverticulosis with peridiverticular inflammatory changes and fluid stranding noted in the sigmoid colon, consistent with diverticulitis. No evidence of free air or peridiverticular collections. Pancolonic mural thickening may reflect superimposed colitis. No bowel obstruction. Anteverted uterus. Prominent fluid-filled uterine cavity measuring 1 cm expected for age. Sooner follow-up ultrasound or pelvic MRI. Normal appendix. Osteopenia with diffuse multilevel spondylosis. Grade 1 anterolisthesis at L4-L5. High-grade stenoses origin of the SMA. IMPRESSION: 1. Distended gallbladder with a large gallstone and possible wall thickening. Consider follow-up ultrasound. 2. Uncomplicated sigmoid diverticulitis. 3. Suspect superimposed pancolitis. Differential Diagnosis Differential Diagnoses: The differential diagnosis associated with the presentation includes See medical decision-making Admission/Observation Consideration of admission/observation: Escalation of care including admission/observation considered Hospital admit Consult Healthcare Provider Management of the patient was discussed with: Hospitalist Lab Data MDM Lab Attestation statement: I reviewed the patient's lab results. 09/17/25 20:46 09/17/25 20:46 Labs: Lab Results 09/17/25 09/17/25 Range/Units 20:46 22:03 WBC 10.2 (4.8-10.8) X10*3/uL RBC 3.98 L (4.20-5.50) X10*6/uL Hgb 12.5 (12.0-16.0) g/dl Hct 37.2 (37.0-47.0) % MCV 93.5 (80.0-98.0) fL MCH 31.4 (27.0-33.0) pg MCHC 33.6 (31.0-35.0) g/dl RDW 13.2 (11.0-16.0) % Plt Count 252 (160-400) X10*3/uL MPV 9.0 L (9.4-12.3) fL Immature Gran % (Auto) 0.4 (0.0-0.4) % Neut % (Auto) 77.5 H (45-73) % Lymph % (Auto) 12.4 L (20-40) % [place] % (Auto) 5.6 (2-11) % Eos % (Auto) 3.6 (0-4) % Baso % (Auto) 0.5 (0-2) % Lymph # (Auto) 1.3 (1.2-4.9) X10*3/uL [place] # (Auto) 0.6 (0.1-1.2) X10*3/uL Eos # (Auto) 0.4 (0.0-0.4) X10*3/uL Baso # (Auto) 0.1 (0.0-0.2) X10*3/uL Abs Immat Gran (auto) 0.04 H (0.00-0.03) X10*3/uL Absolute Neuts (auto) 7.9 (2.0-8.3) x10*3/uL Absolute Nucleated RBC 0.000 (0.0-0.012) X10*3/uL Nucleated RBC % (auto) 0.0 (0.0-0.2) /100WBC Sodium 143 (135-145) mmol/L Potassium 4.1 (3.3-5.1) mmol/L Chloride 108 (96-108) mmol/L Carbon Dioxide 24 (22-29) mmol/L Anion Gap 15 (12-20) BUN 14 (9-16) mg/dL Creatinine 0.64 (0.5-1.4) mg/dL Estim Creat Clear Calc 70.8 Estimated GFR > 60 Random Glucose 147 H (60-115) mg/dL Calcium 9.3 (8.4-10.2) mg/dL Total Bilirubin 1.9 H (0.0-1.0) mg/dL AST 31 (5-31) U/L ALT 29 (0-31) U/L Alkaline Phosphatase 62 (39-117) U/L Total Protein 7.1 (6.5-8.0) g/dL Albumin 4.6 (3.5-5.0) g/dL Urine Color Yellow Urine Appearance Clear Urine pH 6.5 (5.0-9.0) Ur Specific [place] 1.015 (1.005-1.025) Urine Protein Negative (Neg-Trace) mg/dL Urine Glucose (UA) Negative (Negative) mg/dL Urine Ketones Trace (Negative) mg/dL Urine Blood Negative (Negative) Urine Nitrite Negative (Negative) Ur Leukocyte Esterase Negative (Negative) Radiology Impression Discussion of test interpretation with radiology: I have reviewed the radiologist's reading. Discharge Plan Discharge Clinical Impression: Vertigo, Colitis Patient Disposition: Admitted As Inpatient Print Language: Sinhala
--- NOTE | 2025-09-18 01:08 | PC.NURSE ---
med rec completed.
--- NOTE | 2025-09-18 02:12 | PM.IMHP ---
History of Present Illness Date of Service: 09/18/25 Attending physician on admission: Suleiman Cervantes Chief Complaint: dizziness Patient is an 85-year-old female with a past medical history significant for hypertension, hyperlipidemia, prediabetes, known coronary artery disease, asthma, hyperbilirubinemia, morbid obesity, and vertigo, who presented to the ED due to dizziness for the past 2 hours with associated nausea and vomiting. The patient reports that she has been getting treatment from vertigo for the past 10 days and has been going to physical therapy. Dizziness did improve with meclizine. She reports after receiving physical therapy for vertigo, when she returned home she had lower abdominal pain with associated nausea, vomiting and diarrhea. She denies any recent antibiotics, travel or sick contacts. She reports that the nausea is worsening her dizziness. She tried Dramamine and meclizine at home without any improvement. Workup in the ED with elevated bilirubin, this is at baseline. She also recently had an abdominal ultrasound with cholelithiasis without cholecystitis. Abdominopelvic CT in the ED showed distended gallbladder with wall thickening and concern for acute cholecystitis, sigmoid diverticulitis and pancolitis. The patient is pain is in the lower abdomen therefore cholecystitis unlikely. She had a head CT about 5 days ago due to her persistent dizziness which was negative for acute findings. Review of Systems Constitutional: Constitutional: Denies body ache(s), Denies chills, Denies fatigue, Denies fever(s) and Denies headache(s) Eyes: Eyes: Denies change in vision ENT: Denies headache(s), Denies nasal congestion and Denies sore throat Cardiovascular: Cardiovascular: Denies chest pain, Denies rapid heart rate, Denies leg edema, Denies lightheadedness and Denies dyspnea Respiratory: Respiratory: Denies chest congestion, Denies cough, Denies dyspnea and Denies wheezing Gastrointestinal: Gastrointestinal: Reports abdominal pain, Reports diarrhea, Reports nausea and Reports hematemesis Genitourinary: Genitourinary: Denies dysuria and Denies urinary urgency Musculoskeletal: Musculoskeletal: Denies myalgias Integumentary/Breasts: Skin/Breast: Denies rash Neurologic: Denies confusion and Denies headache(s) Psychiatric: Psychiatric: Denies confusion Endocrine: Endocrine: Denies fatigue Hematologic/Lymphatic: Hematologic/Lymphatic: Denies easy bleeding and Denies easy bruising Allergic/Immunologic: Allergic/Immunologic: Denies wheezing [facility] Medical History Obesity (BMI 30-39.9) Obesity (BMI 35.0-39.9 without comorbidity) Vertigo Hypertension Bronchopneumonia Pulmonary nodule Eczema Allergies Asthma Hiatal hernia Chronic cough Family History Mother No problems noted. Father No problems noted. Social History Housing: House Patient Tobacco Use Status: Never used Tobacco Smoked in Last 30 Days: No e-Cigarette/Vaping Use: Never Used Use of substances other than those prescribed or required for medical reasons: No Advance Directives: No Advance Directives Information Provided: Yes Do you have a plan to hurt others: No Plan service: No Current occupational status: retired Cognitive needs: No Hearing needs: No Vision needs: Yes (rx glasses) Meds Allergies Allergy/AdvReac Type Severity Reaction Status Date / Time latex (LATEX) Allergy Unknown UNSURE Verified 09/17/25 20:17 Active Medications: Current Medications Atorvastatin Calcium (Atorvastatin Calcium 40 Mg Tablet) 40 mg PO DAILY ARTHUR Fluticasone/Vilanterol (Fluticasone/Vilanterol 100/25 Blst.W.Dev) 1 puff INHALE RDAILY ARTHUR Metronidazole (Flagyl) 500 mg in 100 mls @ 100 mls/hr IV ONCE ONE Stop: 09/18/25 02:48 Ceftriaxone Sodium 2 gm/ (Sodium Chloride) 50 mls @ 100 mls/hr IV ONCE ONE Stop: 09/18/25 02:18 Metronidazole (Flagyl) 500 mg in 100 mls @ 100 mls/hr IV Q8H ARTHUR Ceftriaxone Sodium 1 gm/ (Sodium Chloride) 50 mls @ 100 mls/hr IV Q24H ARTHUR Isosorbide Mononitrate (Isosorbide Mononitrate 60 Mg Tab.Er.24h) 60 mg PO DAILY ARTHUR; Protocol Meclizine HCl (Meclizine Hcl 12.5 Mg Tablet) 12.5 mg PO TID PRN PRN Reason: dizziness Home Medications ?Medication ?Instructions ?Recorded ?Confirmed ?Last Taken ?Type aspirin 81 mg tablet,delayed 81 mg PO DAILY 02/01/23 09/18/25 Unknown History release isosorbide mononitrate 60 mg 60 mg PO DAILY 02/01/23 09/18/25 Unknown History tablet,extended release 24 hr metoprolol tartrate 25 mg tablet 25 mg PO BID 02/01/23 09/18/25 Unknown History atorvastatin 20 mg tablet 40 mg PO DAILY 05/31/23 09/18/25 Unknown History amlodipine 2.5 mg tablet 2.5 mg PO DAILY 08/30/24 09/18/25 Unknown History Physical Exam Vital Signs and Narrative: Vital Signs: Last Vital Signs Temp 97.5 F 09/18/25 00:03 Pulse 78 09/18/25 00:03 Resp 22 H 09/18/25 00:03 BP 135/62 09/18/25 00:03 Pulse Ox 96 09/17/25 22:15 O2 Del Method Room Air 09/18/25 00:03 BMI result Body Mass Index 30.4 General: AOx3, no acute distress Resp: CTA bilaterally CVS: S1, S2, RRR GI: +BS, tender lower abdomen, no distention. Negative Lopez sign Skin: Warm, dry Neuro: Cranial nerves II-XII grossly intact bilaterally. Motor grossly intact bilaterally Extremities: No edema Psych: Appropriate affect Const: General: No confusion Orientation/consciousness: No confusion Neuro: General: No confusion Results Labs 09/17/25 20:46 09/17/25 20:46 Labs: Laboratory Results - last 24 hr 09/17/25 09/17/25 20:46 22:03 MCV 93.5 MCH 31.4 MCHC 33.6 RDW 13.2 Plt Count 252 MPV 9.0 L Immature Gran % (Auto) 0.4 Neut % (Auto) 77.5 H Lymph % (Auto) 12.4 L [place] % (Auto) 5.6 Eos % (Auto) 3.6 Baso % (Auto) 0.5 Lymph # (Auto) 1.3 [place] # (Auto) 0.6 Eos # (Auto) 0.4 Baso # (Auto) 0.1 Abs Immat Gran (auto) 0.04 H Absolute Neuts (auto) 7.9 Absolute Nucleated RBC 0.000 Nucleated RBC % (auto) 0.0 Anion Gap 15 Estim Creat Clear Calc 70.8 Estimated GFR > 60 Random Glucose 147 H Calcium 9.3 Total Bilirubin 1.9 H AST 31 ALT 29 Alkaline Phosphatase 62 Total Protein 7.1 Albumin 4.6 Urine Color Yellow Urine Appearance Clear Urine pH 6.5 Ur Specific [place] 1.015 Urine Protein Negative Urine Glucose (UA) Negative Urine Ketones Trace Urine Blood Negative Urine Nitrite Negative Ur Leukocyte Esterase Negative Assessment and Plan (1) Diverticulitis: Status: Acute (2) Colitis: Status: Acute (3) Cholelithiasis: Status: Acute Plan Patient is an 85-year-old female with a past medical history significant for hypertension, hyperlipidemia, prediabetes, known coronary artery disease, asthma, hyperbilirubinemia, morbid obesity, and vertigo, who presented to the ED due to dizziness for the past 2 hours with associated nausea and vomiting. Workup in the ED consistent with cholelithiasis, diverticulitis and pancolitis Diverticulitis, rider colitis - ceftriaxone and Flagyl - GI consult - monitor CBC and BMP Cholelithiasis, on CT ? cholecystitis - bilirubin at baseline, AST and ALT normal - surgical consult and GI consult - pain management - IV fluids - NPO pending surgical consult - HIDA Hypertension - normotensive, resume home meds when appropriate HLD - statin Prediabetes - no home meds Class 1 obesity - weight loss encouraged Vertigo - meclizine as needed DNR/DNI VTE prophylaxis: SCDs Patient with acute diverticulitis and colitis, complicated by cholelithiasis and concern for cholecystitis, requiring admission for at least 2 midnight stay for surgical and gastroenterology consultations, IV antibiotics and monitoring. Quality Stroke Does the patient have a stroke diagnosis?: No VTE Prior VTE?: No VTE Risk Level:: Medical - moderate - high VTE Device Contraindication: N/A - Device Ordered VTE Drug Contraindication: Treatment Not Indicated
[2025-09-18] MEDS: metroNIDAZOLE/NS 500 MG/100 ML PIGGYBACK 100 MG IV ×3 (02:25→17:24)
--- NOTE | 2025-09-18 02:28 | PC.NURSE ---
medicated per mar.
[2025-09-18] MEDS: Lactated Ringers 1,000 ML 80 ML IVCONT ×2 (03:40→12:47)
--- NOTE | 2025-09-18 03:44 | PC.NURSE ---
pt medicated per mar.
[2025-09-18 05:21] LABS: MANUAL DIFF FLAG NO
[2025-09-18 05:23] LABS: Hematocrit 36.5 % (37.0-47.0); Hemoglobin 12.5 g/dl (12.0-16.0); Imm Gran Abs Auto 0.04 X10*3/uL (0.00-0.03); Imm Gran Pct Auto 0.4 % (0.0-0.4); Lymphocytes Absolute Auto 1.1 X10*3/uL (1.2-4.9); Mean Corpuscular HGB Conc 34.2 g/dl (31.0-35.0); Mean Corpuscular Hemoglobin 31.6 pg (27.0-33.0); Mean Corpuscular Volume 92.4 fL (80.0-98.0); NRBC Abs Auto 0.000 X10*3/uL (0.0-0.012); NRBC Pct Auto 0.0 /100WBC (0.0-0.2); Platelet Count 257 X10*3/uL (160-400); Red Blood Count 3.95 X10*6/uL (4.20-5.50); White Blood Count 8.9 X10*3/uL (4.8-10.8)
[2025-09-18 05:42] LABS: Alanine Aminotransferase 28 U/L (0-31); Albumin Level 4.5 g/dL (3.5-5.0); Alkaline Phosphatase 65 U/L (39-117); Anion Gap 14 (12-20); Aspartate Amino Transferase 30 U/L (5-31); Blood Urea Nitrogen 10 mg/dL (9-16); Calcium 8.8 mg/dL (8.4-10.2); Carbon Dioxide 22 mmol/L (22-29); Chloride 110 mmol/L (96-108); Creatinine Clr Calc Pharmacy 84.0; Estimated Glomerular Filt Rate > 60; Potassium 4.1 mmol/L (3.3-5.1); Sodium 142 mmol/L (135-145); Total Protein 6.9 g/dL (6.5-8.0)
--- NOTE | 2025-09-18 05:45 | PC.NURSE ---
pt had a bladder scan, pt retaining 855cc, 16 Sinhala placed.
--- NOTE | 2025-09-18 06:53 | PC.NURSE ---
Assumed care of patient. Pt is resting with eyes closed, RR even and unlabored, no visible s/s of distress.
--- NOTE | 2025-09-18 07:16 | PC.NURSE ---
Pt is A+Ox4, calm, cooperative. RR even and unlabored, pt denies CP or SOB. Pt denies any pain or discomfort at this time.
--- NOTE | 2025-09-18 07:26 | PC.NURSE ---
Medication requested Breava elipta inhaler, isosorbide Mononitriate from the pharmacy
[2025-09-18] MEDS: Fluticasone/Vilanterol 100/25 BLST.W.DEV 1 PUFF INHALE (07:38)
--- NOTE | 2025-09-18 07:42 | PC.NURSE ---
Pt sts she takes amlodipine and aspirin in the morning daily but these are not yet ordered, provider Brigitte Fierro notified.
--- NOTE | 2025-09-18 08:22 | PHA.MEDREC ---
Addendum entered by Remington Duarte PharmD 09/18/25 08:25: reviewed Original Note: Pharmacy Consult ? Medication Reconciliation Pharmacy has reviewed the medication reconciliation done by nursing. Spoke to patient to confirm med list. Patient states she never started Ezetimibe 10 mg. Patient last had her medications yesterday morning.
--- NOTE | 2025-09-18 08:52 | PC.NURSE ---
Pt calm, cooperative. No visible s/s of distress. MD came by bedside and stated pt will progress to clear liquid diet following scan.
--- NOTE | 2025-09-18 09:37 | PM.CNGS ---
History of Present Illness Consult details Consult date: 09/18/25 <Citlali Ferrari PA-C - Last Filed: 09/18/25 11:12> Requesting physician: Nimisha Kirkland <Citlali Ferrari PA-C - Last Filed: 09/18/25 11:12> Narrative: 85 year old female with PMH significant for hypertension, hyperlipidemia, prediabetes, CAD, asthma, hyperbilirubinemia, morbid obesity, and vertigo who presented to the ED last night with complaints of lower abdominal pain and nausea/vomiting. Patient reports she first developed dizziness in late May/June and was diagnosed with vertigo. She has been going to PT for vestibular therapy with improvement in her symptoms until last week where she had a severe episode. She reports this was after receiving her flu shot the previous day. She was seen in the ED on 09/12 for the dizziness where a head CT was obtained and showed no acute intracranial abnormality. She was discharged to home. She reports feeling overall improved but she went to PT earlier yesterday and after she came home she had acute onset of lower abdominal pain associated with nausea and vomiting. She came to the ED for evaluation. Work up included CBC, BMP, LFTs significant for a total bilirubin of 1.9, which is around her baseline. She had no leukocytosis. CT scan abd/pelvis report was read as distended GB with large gallstone, sigmoid diverticulitis and pancolitis, no free air, no fluid collections. She does have extensive diverticulosis however I do not appreciate significant surrounding inflammatory changes to suggest diverticulitis. ABD US showed dependent gallstone without gallbladder wall thickening, pericholecystic fluid or sonographic Lopez sign. She also experienced urinary retention and browne was inserted in the ED. She was admitted to the hospitalist service for further treatment and general surgery was consulted. This morning, she reports feeling improved without any abdominal pain, nausea or vomiting. She reports having two large loose stools yesterday morning but denies further diarrhea. She denies fevers, chills, further nausea/vomiting, blood in her stool. She has never had a colonoscopy before. She reports taking metamucil and colace daily to prevent constipation. She reports having loose stools when her vertigo is bad. She does endorse right upper abdominal pain in the lateral aspect daily for which she takes tylenol and it resolves. She reports this is mostly in the morning when she awakes. She denies pain throughout the day or that worsens with eating. <Citlali Ferrari PA-C - Last Filed: 09/18/25 11:12> Review of Systems Review of Systems: Yes all other systems are reviewed and are negative <Citlali Ferrari PA-C - Last Filed: 09/18/25 11:12> [facility] Past Medical History Medical History: Medical History Obesity (BMI 30-39.9) Obesity (BMI 35.0-39.9 without comorbidity) Vertigo Hypertension Bronchopneumonia Pulmonary nodule Eczema Allergies Asthma Hiatal hernia Chronic cough <Citlali Ferrari PA-C - Last Filed: 09/18/25 11:12> Family History Family History: Family History Mother No problems noted. Father No problems noted. <Citlali Ferrari PA-C - Last Filed: 09/18/25 11:12> Social History Social History: Social History Housing: House Patient Tobacco Use Status: Never used Tobacco Smoked in Last 30 Days: No e-Cigarette/Vaping Use: Never Used Use of substances other than those prescribed or required for medical reasons: No Advance Directives: No Advance Directives Information Provided: Yes Do you have a plan to hurt others: No Plan service: No Current occupational status: retired Cognitive needs: No Hearing needs: No Vision needs: Yes (rx glasses) <Citlali Ferrari PA-C - Last Filed: 09/18/25 11:12> Meds Allergies/Adverse reactions: Allergies Allergy/AdvReac Type Severity Reaction Status Date / Time latex (LATEX) Allergy Unknown UNSURE Verified 09/17/25 20:17 <JUNI Herbert Last Filed: 09/18/25 11:12> Active Medications: Current Medications Acetaminophen (Acetaminophen 325 Mg Tablet) 975 mg PO Q6H PRN PRN Reason: Pain, Mild 1-3,fever,headache Atorvastatin Calcium (Atorvastatin Calcium 40 Mg Tablet) 40 mg PO DAILY [facility] Last Admin: 09/18/25 08:41 Dose: 40 mg Calcium Carbonate (Calcium Carbonate 750 Mg Tab.Chew) 750 mg PO Q4H PRN PRN Reason: Heartburn Fluticasone/Vilanterol (Fluticasone/Vilanterol 100/25 Blst.W.Dev) 1 puff INHALE RDAILY [facility] Last Admin: 09/18/25 07:38 Dose: 1 puff Hydromorphone HCl (Hydromorphone Hcl 1 Mg/Ml Syringe) 0.5 mg IVPUSH Q4H PRN; Protocol PRN Reason: Pain, Severe (Pain Scale 7-10) Metronidazole (Flagyl) 500 mg in 100 mls @ 100 mls/hr IV Q8H [facility] Last Admin: 09/18/25 08:43 Dose: 100 mls/hr Ceftriaxone Sodium 1 gm/ (Sodium Chloride) 50 mls @ 100 mls/hr IV Q24H [facility] Lactated Ringer's (Lr) 1,000 mls @ 80 mls/hr IVCONT .[id number] [facility] Last Admin: 09/18/25 03:40 Dose: 80 mls/hr Isosorbide Mononitrate (Isosorbide Mononitrate 60 Mg Tab.Er.24h) 60 mg PO DAILY [facility]; Protocol Last Admin: 09/18/25 08:41 Dose: 60 mg Magnesium Hydroxide (Milk Of Magnesia 30 Ml Oral.Susp) 30 ml PO DAILY PRN PRN Reason: Constipation Meclizine HCl (Meclizine Hcl 12.5 Mg Tablet) 12.5 mg PO TID PRN PRN Reason: dizziness Melatonin (Melatonin 3 Mg Tablet) 6 mg PO BEDTIME PRN PRN Reason: Insomnia Ondansetron HCl (Ondansetron Hcl 4 Mg/2 Ml Vial) 4 mg IVPUSH Q8H PRN PRN Reason: Nausea and Vomiting Oxycodone HCl (Oxycodone Hcl Immed Release 5 Mg Tablet) 5 mg PO Q6H PRN PRN Reason: Pain, Moderate(Pain Scale 4-6) Sodium Chloride (0.9 % Sodium Chloride Flush 3 Ml Syringe) 3 ml IVFLUSH QSHIFT [facility] Last Admin: 09/18/25 07:21 Dose: Not Given <JUNI eHrbert Last Filed: 09/18/25 11:12> Home medications: Home Medications ?Medication ?Instructions ?Recorded ?Confirmed ?Last Taken ?Type aspirin 81 mg tablet,delayed 81 mg PO DAILY 02/01/23 09/18/25 Unknown History release isosorbide mononitrate 60 mg 60 mg PO DAILY 02/01/23 09/18/25 Unknown History tablet,extended release 24 hr metoprolol tartrate 25 mg tablet 25 mg PO BID 02/01/23 09/18/25 Unknown History atorvastatin 20 mg tablet 40 mg PO DAILY 05/31/23 09/18/25 Unknown History amlodipine 2.5 mg tablet 2.5 mg PO DAILY 08/30/24 09/18/25 Unknown History <JUNI Herbert Last Filed: 09/18/25 11:12> Physical Exam Vital Signs: Vital Signs: Last Vital Signs Temp 98.5 F 09/18/25 07:13 Pulse 78 09/18/25 07:13 Resp 12 09/18/25 07:13 BP 134/70 09/18/25 08:41 Pulse Ox 99 09/18/25 07:13 O2 Del Method Room Air 09/18/25 07:13 BMI result Body Mass Index 30.4 <JUNI Herbert Last Filed: 09/18/25 11:12> Const: General: comfortable, no acute distress and alert; No ill appearing <JUNI Herbert Last Filed: 09/18/25 11:12> Orientation/consciousness: patient oriented x3 <JUNI Herbert Last Filed: 09/18/25 11:12> Resp: Effort & Inspection: normal respiratory effort and able to speak in complete sentences <JUNI Herbert Last Filed: 09/18/25 11:12> GI: Other: markedly corpulent abdomen soft, nondistended lower abdomen nontender mild tenderness of the right lateral upper quadrant, no lopez sign <JUNI Herbert Last Filed: 09/18/25 11:12> Inspection: No scar <JUNI Herbert Last Filed: 09/18/25 11:12> Skin: General skin exam: no rashes or lesions noted <Citlali Ferrari PA-C - Last Filed: 09/18/25 11:12> Neuro: General: patient oriented x3 and moves all extremities <Citlali Ferrari PA-C - Last Filed: 09/18/25 11:12> Results Labs Result diagrams: 09/18/25 05:11 09/18/25 05:11 <Citlali Ferrari PA-C - Last Filed: 09/18/25 11:12> Labs: Abnormal lab results 09/17/25 09/18/25 Range/Units 20:46 05:11 RBC 3.98 L 3.95 L (4.20-5.50) X10*6/uL Hct 36.5 L (37.0-47.0) % MPV 9.0 L 9.0 L (9.4-12.3) fL Neut % (Auto) 77.5 H 78.5 H (45-73) % Lymph % (Auto) 12.4 L 12.1 L (20-40) % Lymph # (Auto) 1.1 L (1.2-4.9) X10*3/uL Abs Immat Gran (auto) 0.04 H 0.04 H (0.00-0.03) X10*3/uL Chloride 110 H (96-108) mmol/L Random Glucose 147 H 130 H (60-115) mg/dL Total Bilirubin 1.9 H 1.8 H (0.0-1.0) mg/dL Short CBC 09/17/25 09/18/25 Range/Units 20:46 05:11 WBC 10.2 8.9 (4.8-10.8) X10*3/uL Hgb 12.5 12.5 (12.0-16.0) g/dl Hct 37.2 36.5 L (37.0-47.0) % Plt Count 252 257 (160-400) X10*3/uL BMP 09/17/25 09/18/25 20:46 05:11 Sodium 143 142 Potassium 4.1 4.1 Chloride 108 110 H Carbon Dioxide 24 22 BUN 14 10 Creatinine 0.64 0.54 Calcium 9.3 8.8 Liver Function 09/17/25 09/18/25 Range/Units 20:46 05:11 Total Bilirubin 1.9 H 1.8 H (0.0-1.0) mg/dL AST 31 30 (5-31) U/L ALT 29 28 (0-31) U/L Alkaline Phosphatase 62 65 (39-117) U/L Albumin 4.6 4.5 (3.5-5.0) g/dL Urine 09/17/25 Range/Units 22:03 Urine Color Yellow Urine Appearance Clear Urine pH 6.5 (5.0-9.0) Ur Specific [place] 1.015 (1.005-1.025) Urine Protein Negative (Neg-Trace) mg/dL Urine Glucose (UA) Negative (Negative) mg/dL All other labs normal. <Citlali Ferrari PA-C Last Filed: 09/18/25 11:12> Imaging Abdomen CT scan report/results: report reviewed and image reviewed <Citlali Ferrari PA-C [facility] Last Filed: 09/18/25 11:12> Additional studies: labs reviewed <Citlali Ferrari PA-C Last Filed: 09/18/25 11:12> Assessment and Plan (1) Cholelithiasis: Qualifiers: Cholelithiasis location: gallbladder Cholecystitis presence: without cholecystitis Biliary obstruction: without biliary obstruction Qualified Code(s): K80.20 - Calculus of gallbladder without cholecystitis without obstruction <Citlali Ferrari PA-C [place] Last Filed: 09/18/25 11:12> Status: Acute <Citlali Ferrari PA-C [place] Last Filed: 09/18/25 11:12> (2) Colitis: Status: Acute <Citlali Ferrari PA-C [facility] Last Filed: 09/18/25 11:12> 85 year old female with PMH significant for hypertension, hyperlipidemia, prediabetes, CAD, asthma, hyperbilirubinemia, morbid obesity, and vertigo presenting with lower abdominal pain, vomiting and loose stools. CT scan showed question of pancolitis, diverticulitis and also noted a gallstone. She does have extensive diverticulosis however there is no significant inflammatory changes of the sigmoid colon on my review. She is clinically appearing well and her abdomen is very benign. Recommend obtaining stool studies, GI follow up as she has never had colonoscopy. Can continue conservative measures for now with IVF, IV abx and advancing diet slowly as tolerated. She does have a very large gallstone and does aging report daily RUQ/right lateral abd pain with mild tenderness over the area. Her imaging and symptoms however does not suggest acute cholecystitis. HIDA scan was ordered by the hospitalist service. Unless this turns out to be positive for acute cholecystitis, can follow up in the office on an outpatient basis to discuss further treatment of her gallstones with possible biliary colic. She is in agreement with this. <Citlali Ferrari PA-C - Last Filed: 09/18/25 11:12> 85 year old female with PMH significant for hypertension, hyperlipidemia, prediabetes, CAD, asthma, hyperbilirubinemia, morbid obesity, and vertigo presenting with lower abdominal pain, vomiting and loose stools. CT scan showed question of pancolitis, diverticulitis and also noted a gallstone. She does have extensive diverticulosis however there is no significant inflammatory changes of the sigmoid colon on my review. She is clinically appearing well and her abdomen is very benign. Recommend obtaining stool studies, GI follow up as she has never had colonoscopy. Can continue conservative measures for now with IVF, IV abx and advancing diet slowly as tolerated. She does have a very large gallstone and does aging report daily RUQ/right lateral abd pain with mild tenderness over the area. Her imaging and symptoms however does not suggest acute cholecystitis. HIDA scan was ordered by the hospitalist service. Unless this turns out to be positive for acute cholecystitis, can follow up in the office on an outpatient basis to discuss further treatment of her gallstones with possible biliary colic. She is in agreement with this. Patient seen and examined and agree with the above assessment and plan. Patient's abdomen is very benign with no evidence of tenderness at this time. Examination is not suggestive of acute cholecystitis. HIDA scan reveals normal filling of the gallbladder without evidence of acute cholecystitis. <Francisco Javier Wall MD - Last Filed: 09/18/25 16:05> Procedures Date of Service Date of Service: 09/18/25 <Citlali Ferrari PA-C - Last Filed: 09/18/25 11:12> 09/18/25 <Francisco Javier Wall MD - Last Filed: 09/18/25 16:05>
--- NOTE | 2025-09-18 09:48 | MHC.CM.PN ---
IMM 09/18/25, Pt. lives with her , Ilia, he is her HCP. She is signed up for a new PCP at Dr. Vines's office, CM will call to find out which provider. Pt. does not use home health service or DME. will transport home at DC, DCP: home, self care or with services. CM to follow for DC needs.
--- NOTE | 2025-09-18 10:08 | CONS_ITS ---
DATE OF SERVICE: 09/18/2025 REFERRING PHYSICIAN: KATHY Edmondson REASON FOR CONSULTATION: Diverticulitis. HISTORY OF PRESENT ILLNESS: The patient is a pleasant 85-year-old woman who was admitted to the hospital after presenting to the emergency department last night with complaints of vertigo, abdominal discomfort, and nausea and vomiting with diarrhea. She has a history of vertigo, which has been difficult to treat and developed the abdominal discomfort and diarrhea after coming back from a physical therapy program. She presented to the emergency department and was evaluated. Imaging of the abdomen was undertaken with CT scanning because of her history of abdominal pain and uncomplicated diverticulitis was identified. There was also suspected superimposed pancolitis and possible gallbladder wall thickening for which she has been seen by General Surgery. The patient denies a prior history of diverticulitis. She has never undergone colonoscopy. She is currently being treated with antibiotics and states her abdomen is pain-free. She denies any recent travel, ill contacts, or suspect food ingestions. PAST MEDICAL HISTORY: 1. Hypertension. 2. Hyperlipidemia. 3. Prediabetes. 4. Coronary artery disease. 5. Asthma. 6. Elevated bilirubin. 7. Elevated body mass index. 8. Vertigo. CURRENT MEDICATIONS: Her current medication list is reviewed in the chart. ALLERGIES: LATEX. FAMILY HISTORY: This is reviewed with the patient and is noncontributory. SOCIAL HISTORY: There is no current tobacco, alcohol, or substance abuse. REVIEW OF SYSTEMS: SKIN: No pruritus. HEENT: Negative. CARDIOPULMONARY: No shortness of breath or chest pain. GASTROINTESTINAL: As above. GENITOURINARY: Negative. NEUROPSYCHIATRIC: Negative. PHYSICAL EXAMINATION: GENERAL: Shows a pleasant female, lying comfortably in bed. VITAL SIGNS: Reviewed in the electronic medical record and are stable. SKIN: Anicteric. HEENT: Shows no scleral icterus. NECK: Without lymphadenopathy or thyromegaly. LUNGS: Clear. HEART: Shows a regular rate and rhythm. S1, S2. No murmur. ABDOMEN: Soft without focal masses or tenderness. Bowel sounds are present. No organomegaly is noted. EXTREMITIES: Without edema. LABORATORY DATA: Reviewed as are imaging studies. IMPRESSION: Uncomplicated diverticulitis. I agree with treating her with antibiotics as you are doing. I discussed with her the need for eventual colonoscopy. This can be arranged after the holidays. She understands risks and benefits and agrees to proceed. I would obtain stool specimens because of her questionable colitis and surgical consultation is pending regarding her gallbladder. Thanks for asking me to see her. I will follow her in the hospital with you. MD LEI Oro/HARIKA / [phone]
--- NOTE | 2025-09-18 11:00 | PC.NURSE ---
Report called to JUANJOSE Lomax in overflow
--- NOTE | 2025-09-18 15:39 | PM.EVENT ---
Event Note Date of Service: 09/18/25 Event Note: seen and examined this morning follow up Patient is an 85-year-old female with a past medical history significant for hypertension, hyperlipidemia, prediabetes, known coronary artery disease, asthma, hyperbilirubinemia, morbid obesity, and vertigo, who presented to the ED due to dizziness for the past 2 hours with associated nausea and vomiting. Workup in the ED consistent with cholelithiasis, diverticulitis and pancolitis Diverticulitis, rider colitis continue IV ceftriaxone and Flagyl GI consult -> check stool studies, outpatient colonoscopy Cholelithiasis/biliary colic t bilirubin chronically elevated, remainder of LFTs normal HIDA negative, no acute cholecystitis seen by surgery, outpatient follow up for cholelithiasis - pain management - IV fluids - NPO pending surgical consult - HIDA Hypertension - normotensive, resume home meds when appropriate HLD continue statin Prediabetes - no home meds Class 1 obesity - weight loss encouraged Vertigo - meclizine as needed DNR/DNI VTE prophylaxis: SCDs Patient with acute diverticulitis and colitis, complicated by cholelithiasis and concern for cholecystitis, requiring admission for at least 2 midnight stay for surgical and gastroenterology consultations, IV antibiotics and monitoring. Time Spent With Patient Time: Total time managing care of this patient today ____ minutes.
[2025-09-19] VITALS (7 sets, daily range): BP systolic 106–139; BP diastolic 51–65; PULSE 66–94; RESP 12–20; TEMP 36.1–37.3; O2SAT 93–98; BMI 30.7
[2025-09-19] MEDS: Lactated Ringers 1,000 ML 80 ML IVCONT ×2 (01:39→17:28)
[2025-09-19] MEDS: metroNIDAZOLE/NS 500 MG/100 ML PIGGYBACK 100 MG IV ×3 (02:21→17:28)
[2025-09-19 04:44] LABS: MANUAL DIFF FLAG NO
[2025-09-19 04:46] LABS: Hematocrit 32.1 % (37.0-47.0); Hemoglobin 11.1 g/dl (12.0-16.0); Imm Gran Abs Auto 0.02 X10*3/uL (0.00-0.03); Imm Gran Pct Auto 0.3 % (0.0-0.4); Lymphocytes Absolute Auto 1.5 X10*3/uL (1.2-4.9); Mean Corpuscular HGB Conc 34.6 g/dl (31.0-35.0); Mean Corpuscular Hemoglobin 32.4 pg (27.0-33.0); Mean Corpuscular Volume 93.6 fL (80.0-98.0); NRBC Abs Auto 0.000 X10*3/uL (0.0-0.012); NRBC Pct Auto 0.0 /100WBC (0.0-0.2); Platelet Count 232 X10*3/uL (160-400); Red Blood Count 3.43 X10*6/uL (4.20-5.50); White Blood Count 6.7 X10*3/uL (4.8-10.8)
[2025-09-19 05:06] LABS: Alanine Aminotransferase 23 U/L (0-31); Albumin Level 3.8 g/dL (3.5-5.0); Alkaline Phosphatase 55 U/L (39-117); Anion Gap 12 (12-20); Aspartate Amino Transferase 27 U/L (5-31); Blood Urea Nitrogen 8 mg/dL (9-16); Calcium 8.4 mg/dL (8.4-10.2); Carbon Dioxide 24 mmol/L (22-29); Chloride 111 mmol/L (96-108); Creatinine Clr Calc Pharmacy 70.8; Estimated Glomerular Filt Rate > 60; Potassium 3.4 mmol/L (3.3-5.1); Sodium 144 mmol/L (135-145); Total Protein 5.9 g/dL (6.5-8.0)
--- NOTE | 2025-09-19 07:22 | PC.NURSE ---
Assumed care of pt at 1900. Pt A&O x 4. [place]. Able to follow commands. Able to make needs known. IVF running per MAR. IV ABX given per MAR. Call tello in reach. Fall precautions in place. [place] draining clear yellow urine. See flowsheets, worklist tasks, and MAR for more info. Plan of care ongoing.?
[2025-09-19] MEDS: Fluticasone/Vilanterol 100/25 BLST.W.DEV 1 PUFF INHALE (08:07)
--- NOTE | 2025-09-19 11:23 | PC.NURSE ---
Received reprt, assumed care. Pt lying in bed, denies any c/o concerns at this time. Pt continues to await admitting bed
--- NOTE | 2025-09-19 12:07 | HO.NURTONUR ---
Pt arrived to ED @ 2100 last night c/o sudden onset lower abd pain assoc w/ N/V/D, denies fevrs/chills. Pt has also been undergoing vestibular therapy secondary to vertigo for the past ten days which complicated her nausea. Lastly pt also noted to have urinary retention of 850ml in ED and browne was placed and remains so. CT showed uncomplicated divertic, pancolitis, and distended gallbladder w/ gall stone. Pt is A&O x 4, oob to commode w/ assist. Pt is currently tolerating cl liq diet and denies pain. Stool sample obtained this am and sent. Stools are brown and loose.
[2025-09-19 15:17] LABS: E. coli EAEC Not Detected (Not Detect.); E. coli EPEC Not Detected (Not Detect.); E. coli ETEC Not Detected (Not Detect.); E. coli STEC Not Detected (Not Detect.); Shigella sp./EIEC Not Detected (Not Detect.)
[2025-09-19 15:20] LABS: CDiff Gene PCR NEGATIVE (Negative)
--- NOTE | 2025-09-19 16:43 | HO.PM.IMPN ---
Subjective Subjective Date of Service: 09/19/25 Interval History: seen and examined this morning follow up for colitis reporting nausea, unable to take any po this am no significant pain Review of Systems Review of Systems: Yes all other systems are reviewed and are negative Constitutional Constitutional: Denies chills and Denies fever(s) Physical Exam Vital Signs: Vital Signs: Last Vital Signs Temp 97.3 F 09/19/25 16:00 Pulse 70 09/19/25 16:00 Resp 18 09/19/25 16:00 BP 139/65 09/19/25 16:00 Pulse Ox 96 09/19/25 16:00 O2 Del Method Room Air 09/19/25 16:00 BMI result Body Mass Index 30.7 Const: General: cooperative, no acute distress, alert and awake Nutritional Appearance: average body habitus Orientation/consciousness: patient oriented x3 Resp: Effort & Inspection: normal respiratory effort, able to speak in complete sentences, no respiratory distress and no use of accessory muscles Cardio: Rate: regular rate GI: Inspection: No distended Palpation (GI): Soft to palpation and nontender Neuro: General: patient oriented x3, moves all extremities and CN's II-XI intact bilaterally Objective Data Active Medications Acetaminophen (Acetaminophen 325 Mg Tablet) 975 mg PO Q6H PRN PRN Reason: Pain, Mild 1-3,fever,headache Atorvastatin Calcium (Atorvastatin Calcium 40 Mg Tablet) 40 mg PO DAILY [facility] Last Admin: 09/19/25 08:18 Dose: 40 mg Documented By: NARDA Calcium Carbonate (Calcium Carbonate 750 Mg Tab.Chew) 750 mg PO Q4H PRN PRN Reason: Heartburn Fluticasone/Vilanterol (Fluticasone/Vilanterol 100/25 Blst.W.Dev) 1 puff INHALE RDAILY [facility] Last Admin: 09/19/25 08:07 Dose: 1 puff Documented By: ANNITA Hydromorphone HCl (Hydromorphone Hcl 1 Mg/Ml Syringe) 0.5 mg IVPUSH Q4H PRN; Protocol PRN Reason: Pain, Severe (Pain Scale 7-10) Metronidazole (Flagyl) 500 mg in 100 mls @ 100 mls/hr IV Q8H [facility] Last Infusion: 09/19/25 11:09 Dose: Infused Documented By: HO.COLBURK Ceftriaxone Sodium 1 gm/ (Sodium Chloride) 50 mls @ 100 mls/hr IV Q24H [facility] Last Infusion: 09/19/25 02:15 Dose: Infused Documented By: JOE Lactated Ringer's (Lr) 1,000 mls @ 80 mls/hr IVCONT .[id number] [facility] Last Admin: 09/19/25 01:39 Dose: 80 mls/hr Documented By: JOE Isosorbide Mononitrate (Isosorbide Mononitrate 60 Mg Tab.Er.24h) 60 mg PO DAILY [facility]; Protocol Last Admin: 09/19/25 08:18 Dose: 60 mg Documented By: NARDA Magnesium Hydroxide (Milk Of Magnesia 30 Ml Oral.Susp) 30 ml PO DAILY PRN PRN Reason: Constipation Meclizine HCl (Meclizine Hcl 12.5 Mg Tablet) 12.5 mg PO TID PRN PRN Reason: dizziness Melatonin (Melatonin 3 Mg Tablet) 6 mg PO BEDTIME PRN PRN Reason: Insomnia Metoprolol Tartrate (Metoprolol Tartrate 25 Mg Tablet) 25 mg PO BID [facility]; Protocol Last Admin: 09/19/25 08:18 Dose: 25 mg Documented By: NARDA Ondansetron HCl (Ondansetron Hcl 4 Mg/2 Ml Vial) 4 mg IVPUSH Q8H PRN PRN Reason: Nausea and Vomiting Oxycodone HCl (Oxycodone Hcl Immed Release 5 Mg Tablet) 5 mg PO Q6H PRN PRN Reason: Pain, Moderate(Pain Scale 4-6) Sodium Chloride (0.9 % Sodium Chloride Flush 3 Ml Syringe) 3 ml IVFLUSH QSHIFT [facility] Last Admin: 09/19/25 08:16 Dose: Not Given Documented By: NARDA Non-Admin Reason: IV Running Labs 09/19/25 04:22 09/19/25 04:22 Labs: Laboratory Results - last 24 hr 09/19/25 09/19/25 09/19/25 00:00 04:22 11:20 MCV 93.6 MCH 32.4 MCHC 34.6 RDW 13.5 Plt Count 232 MPV 9.0 L Immature Gran % (Auto) 0.3 Neut % (Auto) 60.4 Lymph % (Auto) 22.8 [place] % (Auto) 8.5 Eos % (Auto) 7.0 H Baso % (Auto) 1.0 Lymph # (Auto) 1.5 [place] # (Auto) 0.6 Eos # (Auto) 0.5 H Baso # (Auto) 0.1 Abs Immat Gran (auto) 0.02 Absolute Neuts (auto) 4.1 Absolute Nucleated RBC 0.000 Nucleated RBC % (auto) 0.0 Anion Gap 12 Estim Creat Clear Calc 70.8 Estimated GFR > 60 Random Glucose 121 H Calcium 8.4 Total Bilirubin 1.9 H AST 27 ALT 23 Alkaline Phosphatase 55 Total Protein 5.9 L Albumin 3.8 Stl C. cayetanensis PCR Not Detected Stool Rotavirus A PCR Not Detected Stl Adenov F 40/41 PCR Not Detected Stool Astrovirus (PCR) Not Detected Stool Campylobacter PCR Not Detected Stool Cryptosporidium PCR Not Detected Stl Sh Tox Pr E STEC PCR Not Detected Stool E coli O157 PCR TNP Stl Enterotoxigenic E PCR Not Detected Stool EPEC (PCR) Not Detected Stool EAEC (PCR) Not Detected Stl E. histolytica PCR Not Detected Stool Giardia Lamblia PCR Not Detected Stl P. shigelloides PCR Not Detected Stool Salmonella PCR Not Detected Stool Sapovirus (PCR) Not Detected Stl Shigella/EIEC PCR Not Detected St Y.enterocolitica PCR Not Detected Stool Vibrio (PCR) Not Detected Stl Vibrio cholerae PCR Not Detected Stl Norovirus GI/GII PCR Not Detected C. difficile Tox B Gene NEGATIVE Microbiology Microbiology Results: Microbiology 09/18/25 02:22 Blood Culture - Preliminary Blood - Venous No growth after 24 hours. 09/18/25 02:30 Blood Culture - Preliminary Blood - Venous No growth after 24 hours. Assessment and Plan (1) Colitis: Status: Acute Plan This is an 85-year-old female with a past medical history significant for hypertension, hyperlipidemia, prediabetes, known coronary artery disease, asthma, hyperbilirubinemia, morbid obesity, and vertigo, who presented to the ED due to dizziness for the past 2 hours with associated nausea and vomiting. Workup in the ED consistent with cholelithiasis, diverticulitis and pancolitis Diverticulitis, rider colitis GI consult -> check stool studies, outpatient colonoscopy cdif and stool studies negative continue IV ceftriaxone and Flagyl not tolerating clear liquids Cholelithiasis/biliary colic t bilirubin chronically elevated, remainder of LFTs normal HIDA negative, no acute cholecystitis seen by surgery, outpatient follow up for cholelithiasis Hypertension continue lopressor, isosorbide resume losartan hold low dose norvasc for now HLD continue statin Prediabetes no home meds Class 1 obesity weight loss encouraged Vertigo meclizine as needed DNR/DNI VTE prophylaxis: SCDs Patient with acute diverticulitis and colitis, complicated by cholelithiasis and concern for cholecystitis, requiring admission for at least 2 midnight stay for surgical and gastroenterology consultations, IV antibiotics and monitoring. Quality Stroke Does the patient have a stroke diagnosis?: No VTE Prior VTE?: No VTE Risk Level:: Medical - moderate - high VTE Device Contraindication: N/A - Device Ordered VTE Drug Contraindication: Treatment Not Indicated
[2025-09-20] MEDS: metroNIDAZOLE/NS 500 MG/100 ML PIGGYBACK 100 MG IV ×3 (02:29→17:52)
[2025-09-20 03:58] VITALS: BP 130/76; PULSE 72; RESP 18; TEMP 36.3; O2SAT 96
[2025-09-20 06:08] LABS: MANUAL DIFF FLAG NO
[2025-09-20 06:14] LABS: Hematocrit 36.1 % (37.0-47.0); Hemoglobin 12.3 g/dl (12.0-16.0); Imm Gran Abs Auto 0.03 X10*3/uL (0.00-0.03); Imm Gran Pct Auto 0.5 % (0.0-0.4); Lymphocytes Absolute Auto 1.4 X10*3/uL (1.2-4.9); Mean Corpuscular HGB Conc 34.1 g/dl (31.0-35.0); Mean Corpuscular Hemoglobin 31.7 pg (27.0-33.0); Mean Corpuscular Volume 93.0 fL (80.0-98.0); NRBC Abs Auto 0.000 X10*3/uL (0.0-0.012); NRBC Pct Auto 0.0 /100WBC (0.0-0.2); Platelet Count 237 X10*3/uL (160-400); Red Blood Count 3.88 X10*6/uL (4.20-5.50); White Blood Count 6.4 X10*3/uL (4.8-10.8)
[2025-09-20 06:37] LABS: Alanine Aminotransferase 27 U/L (0-31); Albumin Level 4.2 g/dL (3.5-5.0); Alkaline Phosphatase 60 U/L (39-117); Anion Gap 13 (12-20); Aspartate Amino Transferase 41 U/L (5-31); Blood Urea Nitrogen 6 mg/dL (9-16); Calcium 8.8 mg/dL (8.4-10.2); Carbon Dioxide 27 mmol/L (22-29); Chloride 106 mmol/L (96-108); Creatinine Clr Calc Pharmacy 75.9; Estimated Glomerular Filt Rate > 60; Potassium 3.4 mmol/L (3.3-5.1); Sodium 143 mmol/L (135-145); Total Protein 6.4 g/dL (6.5-8.0)
[2025-09-20 07:39] VITALS: BP 153/78; PULSE 66; RESP 16; TEMP 36.2; O2SAT 97
[2025-09-20] MEDS: Lactated Ringers 1,000 ML 80 ML IVCONT (08:37)
--- NOTE | 2025-09-20 09:12 | HO.PM.IMPN ---
Subjective Subjective Date of Service: 09/20/25 Interval History: seen and examined this morning follow up for colitis no significant pain Review of Systems Review of Systems: Yes all other systems are reviewed and are negative Constitutional Constitutional: Denies chills and Denies fever(s) Physical Exam Exam: Exam: Appearing in no acute distress lung sounds are clear to auscultation heart regular rate rhythm, clear S1, S2 positive bowel sounds, abdomen is soft, nontender neuro patient is alert x3, no focal deficits Vital Signs: Vital Signs: Last Vital Signs Temp 97.1 F 09/20/25 07:39 Pulse 66 09/20/25 07:39 Resp 16 09/20/25 07:39 BP 153/78 H 09/20/25 07:39 Pulse Ox 97 09/20/25 07:39 O2 Del Method Room Air 09/20/25 07:39 BMI result Body Mass Index 30.7 Objective Data Active Medications Acetaminophen (Acetaminophen 325 Mg Tablet) 975 mg PO Q6H PRN PRN Reason: Pain, Mild 1-3,fever,headache Aspirin (Aspirin Enteric Coated 81 Mg Tablet.Dr) 81 mg PO DAILY [facility] Atorvastatin Calcium (Atorvastatin Calcium 40 Mg Tablet) 40 mg PO DAILY [facility] Last Admin: 09/19/25 08:18 Dose: 40 mg Documented By: NARDA Calcium Carbonate (Calcium Carbonate 750 Mg Tab.Chew) 750 mg PO Q4H PRN PRN Reason: Heartburn Fluticasone/Vilanterol (Fluticasone/Vilanterol 100/25 Blst.W.Dev) 1 puff INHALE RDAILY [facility] Last Admin: 09/19/25 08:07 Dose: 1 puff Documented By: ANNITA Hydromorphone HCl (Hydromorphone Hcl 1 Mg/Ml Syringe) 0.5 mg IVPUSH Q4H PRN; Protocol PRN Reason: Pain, Severe (Pain Scale 7-10) Metronidazole (Flagyl) 500 mg in 100 mls @ 100 mls/hr IV Q8H [facility] Last Infusion: 09/20/25 03:36 Dose: Infused Documented By: SANTANA Ceftriaxone Sodium 1 gm/ (Sodium Chloride) 50 mls @ 100 mls/hr IV Q24H [facility] Last Infusion: 09/20/25 02:36 Dose: Infused Documented By: SANTANA Lactated Ringer's (Lr) 1,000 mls @ 80 mls/hr IVCONT .[id number] [facility] Last Admin: 09/20/25 08:37 Dose: 80 mls/hr Documented By: DUARTE Isosorbide Mononitrate (Isosorbide Mononitrate 60 Mg Tab.Er.24h) 60 mg PO DAILY [facility]; Protocol Last Admin: 09/20/25 08:30 Dose: 60 mg Documented By: DUARTE Losartan Potassium (Losartan Potassium 50 Mg Tablet) 50 mg PO DAILY [facility]; Protocol Magnesium Hydroxide (Milk Of Magnesia 30 Ml Oral.Susp) 30 ml PO DAILY PRN PRN Reason: Constipation Meclizine HCl (Meclizine Hcl 12.5 Mg Tablet) 12.5 mg PO TID PRN PRN Reason: dizziness Melatonin (Melatonin 3 Mg Tablet) 6 mg PO BEDTIME PRN PRN Reason: Insomnia Metoprolol Tartrate (Metoprolol Tartrate 25 Mg Tablet) 25 mg PO BID [facility]; Protocol Last Admin: 09/19/25 20:02 Dose: 25 mg Documented By: SANTANA Ondansetron HCl (Ondansetron Hcl 4 Mg/2 Ml Vial) 4 mg IVPUSH Q8H PRN PRN Reason: Nausea and Vomiting Oxycodone HCl (Oxycodone Hcl Immed Release 5 Mg Tablet) 5 mg PO Q6H PRN PRN Reason: Pain, Moderate(Pain Scale 4-6) Sodium Chloride (0.9 % Sodium Chloride Flush 3 Ml Syringe) 3 ml IVFLUSH QSHIFT [facility] Last Admin: 09/20/25 08:41 Dose: Not Given Documented By: DUARTE Non-Admin Reason: IV Running Labs 09/20/25 06:02 09/20/25 06:02 Labs: Laboratory Results - last 24 hr 09/19/25 09/19/25 09/20/25 00:00 11:20 06:02 MCV 93.0 MCH 31.7 MCHC 34.1 RDW 13.2 Plt Count 237 MPV 8.7 L Immature Gran % (Auto) 0.5 H Neut % (Auto) 61.5 Lymph % (Auto) 22.1 [place] % (Auto) 7.8 Eos % (Auto) 7.2 H Baso % (Auto) 0.9 Lymph # (Auto) 1.4 [place] # (Auto) 0.5 Eos # (Auto) 0.5 H Baso # (Auto) 0.1 Abs Immat Gran (auto) 0.03 Absolute Neuts (auto) 3.9 Absolute Nucleated RBC 0.000 Nucleated RBC % (auto) 0.0 Anion Gap 13 Estim Creat Clear Calc 75.9 Estimated GFR > 60 Random Glucose 113 Calcium 8.8 Total Bilirubin 2.4 H AST 41 H ALT 27 Alkaline Phosphatase 60 Total Protein 6.4 L Albumin 4.2 Stl C. cayetanensis PCR Not Detected Stool Rotavirus A PCR Not Detected Stl Adenov F 40/41 PCR Not Detected Stool Astrovirus (PCR) Not Detected Stool Campylobacter PCR Not Detected Stool Cryptosporidium PCR Not Detected Stl Sh Tox Pr E STEC PCR Not Detected Stool E coli O157 PCR TNP Stl Enterotoxigenic E PCR Not Detected Stool EPEC (PCR) Not Detected Stool EAEC (PCR) Not Detected Stl E. histolytica PCR Not Detected Stool Giardia Lamblia PCR Not Detected Stl P. shigelloides PCR Not Detected Stool Salmonella PCR Not Detected Stool Sapovirus (PCR) Not Detected Stl Shigella/EIEC PCR Not Detected St Y.enterocolitica PCR Not Detected Stool Vibrio (PCR) Not Detected Stl Vibrio cholerae PCR Not Detected Stl Norovirus GI/GII PCR Not Detected C. difficile Tox B Gene NEGATIVE Microbiology Microbiology Results: Microbiology 09/18/25 02:22 Blood Culture - Preliminary Blood - Venous No growth after 48 hours. 09/18/25 02:30 Blood Culture - Preliminary Blood - Venous No growth after 48 hours. Assessment and Plan (1) Colitis: Status: Acute Plan 85-year-old female with a past medical history significant for hypertension, hyperlipidemia, prediabetes, known coronary artery disease, asthma, hyperbilirubinemia, morbid obesity, and vertigo, who presented to the ED due to dizziness for the past 2 hours with associated nausea and vomiting. Workup in the ED consistent with cholelithiasis, diverticulitis and pancolitis Urinary retention Voiding trial today start flomax Diverticulitis, pancolitis GI consult > check stool studies, outpatient colonoscopy cdif and stool studies negative continue IV ceftriaxone and Flagyl full liquid diet Cholelithiasis/biliary colic t bilirubin chronically elevated, remainder of LFTs normal HIDA negative, no acute cholecystitis seen by surgery, outpatient follow up for cholelithiasis Hypertension continue lopressor, isosorbide resume losartan hold low dose norvasc for now HLD continue statin Prediabetes no home meds Class 1 obesity weight loss encouraged Vertigo meclizine as needed DNR/DNI VTE prophylaxis: SCDs Patient with acute diverticulitis and colitis continues to require IV abx, voiding trial today, diet being advanced Quality Stroke Does the patient have a stroke diagnosis?: No VTE Prior VTE?: No VTE Risk Level:: Medical - moderate - high VTE Device Contraindication: N/A - Device Ordered VTE Drug Contraindication: Treatment Not Indicated
[2025-09-20 09:55] VITALS: BP 142/70; PULSE 79
[2025-09-20] MEDS: Aspirin Enteric Coated 81 MG TABLET.DR PO (10:08)
[2025-09-20] MEDS: Fluticasone/Vilanterol 100/25 BLST.W.DEV 1 PUFF INHALE (11:12)
[2025-09-20 11:13] VITALS: PULSE 75; RESP 18; O2SAT 97
[2025-09-20 16:00] VITALS: BP 126/59; PULSE 69; RESP 14; TEMP 36.6; O2SAT 95
[2025-09-20 20:00] VITALS: BP 117/55; PULSE 72; RESP 17; TEMP 36.4; O2SAT 96
[2025-09-20] MEDS: 0.9 % Sodium Chloride Flush 3 ML SYRINGE IVFLUSH (20:25)
[2025-09-21] MEDS: metroNIDAZOLE/NS 500 MG/100 ML PIGGYBACK 100 MG IV (01:56)
[2025-09-21 03:54] VITALS: BP 146/67; PULSE 66; RESP 18; TEMP 36.7; O2SAT 95
[2025-09-21 06:54] VITALS: BP 134/90; PULSE 75; RESP 17; TEMP 36.1; O2SAT 98
[2025-09-21 07:59] VITALS: BP 132/71; PULSE 67; RESP 16; TEMP 36.6; O2SAT 97
[2025-09-21] MEDS: Fluticasone/Vilanterol 100/25 BLST.W.DEV 1 PUFF INHALE (08:24)
[2025-09-21 08:26] VITALS: PULSE 77; RESP 18; O2SAT 96
[2025-09-21] MEDS: Aspirin Enteric Coated 81 MG TABLET.DR PO (08:26)
--- NOTE | 2025-09-21 11:52 | PM.DS ---
DS: Providers Provider Date of Service: 09/21/25 Date of admission: 09/18/25 02:05 Date of discharge: 09/21/25 Primary care physician: Unknown Physician Consults: 09/18/25 02:06 Consult to Gastroenterology Routine Consulting Provider: Norbert Rodriguez Reason for consultation: diverticulitis, colitis, gallstone 09/18/25 02:07 Consult to General Surgery Routine Consulting Provider: [facility] [place] [facility] Sur[facility] Reason for consultation: ?cholecystitis Has provider been notified: No DS: Diagnosis Discharge Diagnosis (1) Colitis: Status: Acute DS: Summary Hospital Course Hospital Course: History and physical as per admitting provider. Patient is an 85-year-old female with a past medical history significant for hypertension, hyperlipidemia, prediabetes, known coronary artery disease, asthma, hyperbilirubinemia, morbid obesity, and vertigo, who presented to the ED due to dizziness for the past 2 hours with associated nausea and vomiting. The patient reports that she has been getting treatment from vertigo for the past 10 days and has been going to physical therapy. Dizziness did improve with meclizine. She reports after receiving physical therapy for vertigo, when she returned home she had lower abdominal pain with associated nausea, vomiting and diarrhea. She denies any recent antibiotics, travel or sick contacts. She reports that the nausea is worsening her dizziness. She tried Dramamine and meclizine at home without any improvement. Workup in the ED with elevated bilirubin, this is at baseline. She also recently had an abdominal ultrasound with cholelithiasis without cholecystitis. Abdominopelvic CT in the ED showed distended gallbladder with wall thickening and concern for acute cholecystitis, sigmoid diverticulitis and pancolitis. The patient is pain is in the lower abdomen therefore cholecystitis unlikely. She had a head CT about 5 days ago due to her persistent dizziness which was negative for acute findings. 85-year-old woman treated for diverticulitis, rider colitis. Seen evaluated by Gastroenterology who recommended stool studies which were negative and outpatient colonoscopy. Patient was treated with IV Rocephin and Flagyl. Diet was advanced to regular. Patient was also noted to have cholelithiasis with biliary colic. Her total bili was chronically elevated and LFTs remain normal. HIDA scan was negative with no signs of acute cholecystitis. Seen and evaluated by General surgery who recommended no further outpatient follow up at this time. Plan will be to discharge patient home to complete course of antibiotics. Urinary retention. Bolton catheter removed, passed voiding trial. Started on Flomax Hypertension. Stable blood pressures. She may continue her Lopressor, isosorbide, amlodipine and losartan Hyperlipidemia. Continue statin Class 1 obesity. BMI 30.7. Discussed importance of weight management as this may be contributing to worsening of other comorbidities Time Attestation Discharge Coordination Time (in mins): 45 Quality: Safe Use of Opioids Does Pt have an Active Cancer Diagnosis on the Problem List?: No Quality: Stroke Does the patient have a stroke diagnosis?: No Physical Exam Exam: Exam: Appearing in no acute distress head is normocephalic atraumatic eyes pupils are PERRLA sclera is anicteric mouth throat mucous membranes are intact and moist neck is supple no lymphadenopathy, no JVD noted lung sounds are clear to auscultation heart regular rate rhythm, clear S1, S2 positive bowel sounds, abdomen is soft, nontender neuro patient is alert x3, no focal deficits Vital Signs: Vital Signs: Last Vital Signs Temp 98 F 09/21/25 07:59 Pulse 77 09/21/25 08:26 Resp 18 09/21/25 08:26 BP 132/71 09/21/25 07:59 Pulse Ox 97 09/21/25 07:59 O2 Del Method Room Air 09/21/25 07:59 BMI result Body Mass Index 30.7 DS: Data Data Completed and Pending Labs on day of discharge: Preliminary micro results at discharge 09/18/25 02:22 Blood Culture - Preliminary Blood - Venous No growth after 48 hours. 09/18/25 02:30 Blood Culture - Preliminary Blood - Venous No growth after 48 hours. Discharge Plan Discharge Anticipated Discharge Date/Time: 09/21/25 11:48 Patient Disposition: Home, Self-Care Discharge Diagnosis: Diverticulitis Colitis Referrals: Francisco Javier Wall MD [Physician, General Surgery] - 1 Week Discharge Medications: New tamsulosin 0.4 mg Capsule 0.4 mg PO DAILY Qty: 30 0RF metronidazole 500 mg Tablet 500 mg PO Q8H Qty: 9 0RF cefuroxime axetil 500 mg tablet 500 mg PO BID Qty: 6 0RF Continued fluticasone propion-salmeterol [Wixela Inhub] 250-50 mcg/dose blister with device 1 inh inhalation Q12H 30 Days Qty: 60 11RF aspirin 81 mg tablet,delayed release (DR/EC) 81 mg PO DAILY metoprolol tartrate 25 mg tablet 25 mg PO BID isosorbide mononitrate 60 mg tablet extended release 24 hr 60 mg PO DAILY atorvastatin 20 mg tablet 40 mg PO DAILY losartan 50 mg tablet 50 mg PO DAILY Qty: 90 3RF amlodipine 2.5 mg tablet 2.5 mg PO DAILY meclizine 12.5 mg tablet 12.5 mg PO TID PRN (Reason: dizziness) Qty: 60 2RF Discharge Orders: Discharge Order (Routine); Ordered 09/21/25 Ordered By: Yareli Joseph Diet: Advance to usual diet Activity on Discharge: As tolerated Stand Alone Forms: Patient Portal Discharge page Print Language: Kazakh Care Plan Goals: Complete course of antibiotics Take Flomax for urinary retention Health Concerns: Diverticulitis Colitis Plan of Treatment: Follow up with primary care provider as needed Take all medications as prescribed Assessment: See discharge summary
--- NOTE | 2025-09-21 12:16 | MHC.CM.PN ---
IMM09/21/25 Patient is discharged to home self care. She has arranged for transport home.
[2025-09-21 12:36] VITALS: BP 105/54; PULSE 65
== END 2025-09-21 13:25 | disposition home or self-care (01) | DRG 392 ==
LOC: HO.ED 09-18 01:39 → HO.EDOVER 09-18 02:17 → HO.S3 09-19 12:01
PROVIDERS: Physician Assistant Medical; Admitting Provider Physician Assistant; Emergency Provider Emergency Medicine; Visit Provider Nurse Practitioner Acute Care
DX: K57.32 Diverticulitis of large intestine without perforation or abscess without bleeding (principal); R73.03 Prediabetes; I25.10 Atherosclerotic heart disease of native coronary artery without angina pectoris; I10 Essential (primary) hypertension; K80.50 Calculus of bile duct without cholangitis or cholecystitis without obstruction; K52.9 Noninfective gastroenteritis and colitis, unspecified; R33.9 Retention of urine, unspecified; E78.5 Hyperlipidemia, unspecified; Z66 Do not resuscitate; R42 Dizziness and giddiness; E66.811 Obesity, class 1; Z79.51 Long term (current) use of inhaled steroids; Z79.82 Long term (current) use of aspirin; Z79.899 Other long term (current) drug therapy
CPT/HCPCS: 36415; 74177; 78226; 80053; 81003; 83605; 85025; 87040; 87493; 87507; 99285; A9537; J0696; J1836; J2250; J2405; J7120; Q9967

== ENCOUNTER → 2025-09-17 21:56 | Outpatient (BNV) | payer MEDICARE, SELFPAY | PROVIDERS: Emergency Provider Emergency Medicine; Visit Provider Radiology Diagnostic Radiology | DX: K57.32 Diverticulitis of large intestine without perforation or abscess without bleeding (principal) | CPT/HCPCS: 74177 ==

== ENCOUNTER 2025-09-18 02:05 | Outpatient (BNV) | payer MEDICARE, SELFPAY | END 2025-09-18 10:15 | PROVIDERS: Admitting Provider Physician Assistant; Emergency Provider Emergency Medicine; Visit Provider Radiology Diagnostic Radiology | DX: R10.30 Lower abdominal pain, unspecified (principal); R11.2 Nausea with vomiting, unspecified | CPT/HCPCS: 78226 ==

== ENCOUNTER → 2025-09-18 02:05 | Outpatient (BNV) | payer MEDICARE, SELFPAY | PROVIDERS: Admitting Provider Physician Assistant; Emergency Provider Emergency Medicine; Visit Provider Physician Assistant Surgical | DX: K80.20 Calculus of gallbladder without cholecystitis without obstruction (principal); K52.9 Noninfective gastroenteritis and colitis, unspecified | CPT/HCPCS: 99222 ==

== ENCOUNTER → 2025-09-18 02:05 | Outpatient (BNV) | payer MEDICARE, SELFPAY | PROVIDERS: Admitting Provider Physician Assistant; Emergency Provider Emergency Medicine; Visit Provider Physician Assistant Medical | DX: K52.9 Noninfective gastroenteritis and colitis, unspecified (principal) | CPT/HCPCS: 99223; 99232; 99499 ==

== ENCOUNTER 2025-10-03 13:02 | Outpatient (REF) | payer MEDICARE, SELFPAY ==
--- OUTSIDE RECORDS SUMMARY | 2024-06-19 06:30 | XMS_ITS ---
Author Organization [facility] Address [address] [place] [phone] Care Team Providers Care Animal Keeper Head Name Role Phone Yanely Otero Unavailable [phone] Problems No Known Problems Encounters Encounter Location Date Provider Diagnosis [address] [address] 06/19/2024 Yanely Otero Plan Of Treatment Next Appt Details Provider Name:Yanely lambert, 10/15/2025 11:00:00 AM, [address] [place] [address], [phone], Provider Name:Yanely lambert, 12/24/2025 11:00:00 AM, [address] [place] [address], [phone], Progress Notes * Julita PIMENTEL MDOB:[birth year] (85 yo F)Acc No.[id number]:06/19/2024 Progress Note Patient: El Julita NICHOLE Provider: Hugh Otero DPM :1940 A ge:84 Y S ex:Female Date:06/19/2024 [facility] [id number] Subjective: * Chief Complaints: * * Medical [...] 0 06/19/2024 Generated for Terry Mao/Namita on: 12/03/2024 03:12 PM EST
--- NOTE | ~2025-10-03 | CT_ITS ---
EXAMINATION: CT CHEST WITHOUT CONTRAST CLINICAL INFORMATION: January 17, 2025 and June 07, 2023 COMPARISON: None available. TECHNIQUE: Multidetector volumetric CT imaging of the chest was done. Axial MIP volume rendering provided. Sagittal and coronal reformatted images were obtained. This CT examination was performed using dose optimization techniques as appropriate, variously including the following: *Automated exposure control *Adjustment of mA and/or kV according to patient size (this includes techniques or standardized protocols for targeted exams where dose is matched to indication/reason for exam; i.e. extremities or head) *Use of iterative reconstruction technique FINDINGS: LUNGS: Axial CT #4 Image 48: Partially obscured perivascular nodule in the right upper lobe measures 4 mm, unchanged. Image 49: Superior segment right lower lobe nodule measuring 2 mm is unchanged. Image 58: Posterior right upper lobe nodule measuring 4 mm is unchanged. Second nodule more lateral in the right upper lobe is 3 mm and unchanged. Images 86: Medial segment right middle lobe nodule measuring 3 mm is unchanged. Image 87: Medial segment right middle lobe nodule 3 mm unchanged. Image 109: Posterior right lower lobe nodule measuring 2 x 7 mm unchanged. Image 76: Anterior left lower lobe nodule measuring 2 x 3 mm is unchanged. Image 80: Lateral left lower lobe nodule measuring 3 x 5 mm is unchanged. No new nodules were identified. MEDIASTINUM: 14 mm low attenuating nodule is present in the left lobe of the thyroid gland, similar to the prior. CORONARY ARTERY CALCIFICATION: Present PLEURA: There is no pleural effusion. No pleural mass or thickening. AXILLA: No lymphadenopathy. UPPER ABDOMEN: Previously described large calcified stone in the gallbladder is partially imaged. There is a small sliding hiatal hernia. OSSEOUS STRUCTURES: Bridging anterior osteophytes are evident throughout the thoracic spine. There is a 14 mm low attenuating lesion in the anterior right fifth thoracic vertebral body that was present in 2022. In 2022, there was coarse trabeculation suggesting an vertebral hemangioma. Trabeculation is less apparent on the current study but still minimally visible. CT/CT chest wo IV con IMPRESSION: Stable multiple pulmonary nodules. Consider optional CT chest without contrast: December 2025. 14 mm nodule in the left lobe of thyroid gland. Follow-up with thyroid ultrasound. There is a low attenuating lesion within the T5 vertebral body. There are faint coarse trabeculations that were more apparent on the prior study from 2 years ago suggesting that the lesion is related to a vertebral hemangioma. Cholelithiasis. There is a small sliding hiatal hernia. Fleischner guidelines were followed. Electronically signed by: Dieter Kraus MD 10/03/2025 02:08 PM MATTHEW LÓPEZ
--- OUTSIDE RECORDS SUMMARY | 2025-10-03 15:13 | XMS_ITS | Patient Health Record ---
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 Name Role Phone Yanely Otero Unavailable [phone] Allergies No Known Allergies Reason For Referral [...] 08/12/2025 Encounters Encounter Location Date Provider Diagnosis [address] [address] 11/13/2024 Yanely Perica Tinea unguium B35.1 ; Xerosis of skin L85.3 ; Pain in right toe(s) M79.674 and Pain in left toe(s) M79.[address] [address] 01/24/2025 Yanely Perica Tinea unguium B35.1 ; Xerosis of skin L85.3 ; Pain in right toe(s) M79.674 and Pain in left toe(s) M79.[address] [address] 04/01/2025 Yanely Perica Pain in right toe(s) M79.674 ; Onychomycosis B35.1 and Pain in left toe(s) M79.[address] [address] 06/06/2025 Yanely Perica Pain in right toe(s) M79.674 ; Onychomycosis B35.1 and Pain in left toe(s) M79.[address] [address] 08/12/2025 Yanely Otero Pain in right toe(s) M79.674 ; Onychomycosis B35.1 and Pain in left toe(s) M79.675 Assessments Encounter Date Diagnosis (ICD Code) Assessment Notes Treatment Notes Treatment Clinical Notes Section Notes 11/13/2024 Tinea unguium (ICD-10 - B35.1) 11/13/2024 Xerosis of skin (ICD-10 - L85.3) 06/06/2025 Pain in right toe(s) (ICD-10 - M79.674) 08/12/2025 Pain in right toe(s) (ICD-10 - M79.674) 04/01/2025 Pain in right toe(s) (ICD-10 - M79.674) 01/24/2025 Xerosis of skin (ICD-10 - L85.3) 01/24/2025 Tinea unguium (ICD-10 - B35.1) 01/24/2025 Pain in right toe(s) (ICD-10 - M79.674) 04/01/2025 Onychomycosis (ICD-10 - B35.1) 08/12/2025 Onychomycosis (ICD-10 - B35.1) 06/06/2025 Onychomycosis (ICD-10 - B35.1) 11/13/2024 Pain in right [...] Details Provider Name:Yanely lambert, 10/15/2025 11:00:00 AM, [address] [place], [address], Provider Name:Yanely Lambert Saúl lambert, 12/24/2025 11:00:00 AM, [address] [place], [address], Insurance Providers Payer Name Payer Address Payer Phone Subscriber Number Group Number Insured Name Patient Relationship to Insured Coverage Start Date Coverage End Date Medicare [employer] [address] [place] [address] [id number] Julita Pimentel Self - patient is the insured [facility] [address] [place] [address] [id number] Julita Pimentel Self - patient is the insured Medical (General) History Medical History History ICD Code Arthritis Back,Hip,and Knee pain CAD (Cholesterol) High blood pressure Psoriasis/eczema Joint implants/screws Surgical History Surgery Date(Month/Year) 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
== END 2025-10-03 13:03 | disposition home or self-care (01) ==
LOC: HO.CT 13:02
PROVIDERS: Visit Provider Hospitalist
DX: R91.1 Solitary pulmonary nodule (principal)
CPT/HCPCS: 71250

== ENCOUNTER → 2025-10-03 13:06 | Outpatient (BNV) | payer MEDICARE, SELFPAY | PROVIDERS: Visit Provider Radiology Diagnostic Radiology | DX: R91.8 Other nonspecific abnormal finding of lung field (principal); E04.1 Nontoxic single thyroid nodule | CPT/HCPCS: 71250 ==

== ENCOUNTER 2025-10-21 13:45 | Outpatient (AMB) | payer MEDICARE, SELFPAY ==
--- OUTSIDE RECORDS SUMMARY | 2024-06-19 06:30 | XMS_ITS ---
Author Organization [facility] Address [address] [place] [id number] Care Team Providers Care Round Boner Name Role Phone Yanely Otero Unavailable [phone] Problems No Known Problems Encounters Encounter Location Date Provider Diagnosis [address] [id number] 06/19/2024 Yanely Otero Plan Of Treatment Next Appt Details Provider Name:Yanely lambert, 12/24/2025 11:00:00 AM, [address] [place] [address], [phone], Provider Name:Yanely lambert, 02/25/2026 11:00:00 AM, [address] [place] [address], [phone], Progress Notes * Julita PIMENTEL MDOB:[birth year] (85 yo F)Acc No.[id number]:06/19/2024 Progress Note Patient: El Julita NICHOLE Provider: Hugh Otero DPM :1940 A ge:84 Y S ex:Female Date:06/19/2024 [facility] [id number] Subjective: * Chief Complaints: * * Medical History: Objective: * Vitals: Assessment: Plan: * Treatment: * Images: * The named appointment provid er may or may not be the originator of this progress note, and it is not deemed complete until electronically signed by the appointment provider. Sign off status: Pending * Provider: Hugh Otero DPM Date: 0 06/19/2024 Generated for Terry Mao/Namita on: 12/21/2024 05:35 PM EST
--- NOTE | 2025-10-21 13:44 | A.OFFVIS_ITS ---
Vital Signs 10/21/25 13:57 Height 5 ft Weight 180 lb BMI 35.2 BP 140/67 H Blood Pressure Location Lt brachial Position Sitting Pulse 76 Intake Visit Reasons: Gallstones Intake Note: Patient is seen in office for ER follow up visit, following for gallstones. Pt c/o: RUQ pain for aprox 6m to a year, periodic/not constant, nausea and vomit, denies constipation, diarrhea or other concerns us:09/16/25 HIDA:09/18/25 Tree Trimming Supervisor Required: No Accompanied by: Spouse Allergies No Known Allergies Allergy (Verified 10/21/25 13:58) Medication List - Last Reconciled 10/21/25 by Francisco Javier Wall MD amlodipine 2.5 mg PO DAILY aspirin 81 mg PO DAILY atorvastatin 40 mg PO DAILY fluticasone propion-salmeterol 250-50 mcg/dose (Wixela Inhub) 1 inh inhalation Q12H 30 days isosorbide mononitrate ER 60 mg PO DAILY losartan 50 mg PO DAILY meclizine 12.5 mg PO TID PRN metoprolol tartrate 25 mg PO BID HPI Comments Details: 85-year-old female patient returning following a recent admission for vertigo, abdominal pain, nausea, vomiting, and loose stools, admitted on 09/17/2025. She was found on CT to have a large gallstone within the gallbladder as well as intermittent abdominal pain in the right side radiating into the back. She reports the pain often wakes her up at night and has required visits to the emergency department on several occasions. She reports that the vertigo is improved and she denies any further nausea, vomiting, fever, chills, diarrhea or constipation. Her past history is significant for hypertension, hyperlipidemia, prediabetes, coronary artery disease, asthma, hyperbilirubinemia, morbid obesity and vertigo. She presents today to discuss possible elective cholecystectomy for her symptomatic cholelithiasis. [facility] Medical History Diverticulosis Obesity (BMI 30-39.9) Obesity (BMI 35.0-39.9 without comorbidity) Vertigo Hypertension Bronchopneumonia Pulmonary nodule Eczema Allergies Asthma Hiatal hernia Chronic cough Family History Mother No problems noted. Father No problems noted. Social History Household Members: Spouse and Children Housing: House Do you presently have visiting nurse or other home services: No Patient Tobacco Use Status: Never used Tobacco e-Cigarette/Vaping Use: Never Used service: No Current occupational status: retired Cognitive needs: No Hearing needs: No Vision needs: Yes (rx glasses) Review of Systems Const All systems reviewed & are unremarkable except as noted in HPI and below Denies chills, Denies fever(s), Denies headache(s), Denies poor appetite and Denies weakness ENT Denies headache(s) Card Denies chest pain, Denies irregular heart rhythm, Denies palpitations and Denies dyspnea Resp Denies cough, Denies excessive phlegm production and Denies dyspnea GI Reports abdominal pain, Reports bloating, Denies change in bowel habits, Denies constipation, Denies heartburn, Denies diarrhea, Reports nausea and Reports vomiting Denies urinary frequency Musc Denies back pain, Denies muscle weakness and Denies numbness Skin/Breast Denies changing lesions and Denies unusual bruising Neuro Denies headache(s), Denies numbness, Denies paresthesias and Denies weakness Psych Denies anxiety and Denies depression Endo Denies palpitations Mike/Lymph Denies lymphadenopathy Physical Exam Const General: cooperative and no acute distress Nutritional Appearance: well nourished Orientation/consciousness: patient oriented x3 Limitations: no limitations HEENT Head: Yes normocephalic and Yes atraumatic Ears: hearing grossly normal bilaterally Resp Effort & Inspection: normal respiratory effort, no audible wheezes, no cough and no respiratory distress Cardio Jugular venous distension: no JVD GI Inspection: Yes normal to inspection Palpation (GI): Soft to palpation, nontender, no guarding, not rigid and No hepatosplenomegaly present Percussion: Yes normal to percussion Auscultation: normal bowel sounds Rectal Exam - Female: deferred Skin Other: Warm, dry, no rash Neuro General: patient oriented x3 Extrem General: Yes no clubbing, cyanosis or edema Assessment & Plan Assessment & Plan (1) Symptomatic cholelithiasis: Code(s): K80.20 - Calculus of gallbladder without cholecystitis without obstruction Category: Medical Plan 85-year-old female patient presenting with complaints of intermittent abdominal pain mainly in the right upper quadrant radiating into the back with the associated nausea and dizziness. Workup with CT abdomen and pelvis does reveal a large calcified gallstone within the gallbladder without evidence of wall thickening or pericholecystic fluid. HIDA scan revealed visualization of the g allbladder without cystic duct obstruction. She does appear to have symptomatic cholelithiasis/biliary colic therefore elective laparoscopic or possible open cholecystectomy is recommended. I reviewed the procedure, risks, and alternatives and she consents to the laparoscopic or possible open cholecystectomy. This will be scheduled at her convenience as a short-stay surgery. Coding Level of Care Code Est Pt Level 4 (38277) Diagnoses Symptomatic cholelithiasis K80.20
[2025-10-21 13:57] VITALS: BP 140/67; PULSE 76; BMI 35.2
--- OUTSIDE RECORDS SUMMARY | 2025-10-21 17:36 | XMS_ITS | Data Portability ---
Author Organization [place] Selvin Bowman [facility], [facility] Address [address] [place] [address] Care Team Providers Care Dental Assisting Instructor Name Role Phone RAMON HERNANDEZ Primary Care [...] X-rays reviewed in the office today on [facility] P[facility]: Weight bearing AP of Both knees, Steinberg view of Both Knees, Foraker View of Both Knees, and Lateral of the Left knee; demonstrate Severe end-stage osteoarthritis of the Left knee. There is [id number] articulation laterally, subchondral sclerosis, osteophyte formation. 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 Once she has been medically cleared for surgical intervention she will call us and we will proceed with skin doing for total knee arthroplasty. I attempted to answer all of her questions today in the office. [email or web address] Not available 06/21/2024 16:48:49 Plan of Treatment Reminders Order Date Submit Date Provider Last Modified By Organization Details Last Modified Time Details Appointments None recorde d. Lab None recorde d. Referral None recorde d. Procedures None recorde d. Surgeries None recorde d. Imaging XR, knee, 4 or more view - rm 206 R knee pain, wants sx 024 06/21/20 24 [email or web address] [facility] Office, [address] [facility], [facility] [address], [place], [address], 4 09:37:34 Medication Orders None recorde d. Patient TargetsNo targets recorded. Patient InstructionsNo instructions recorded. Reason for Referral None Reported. Problems Name Problem SNOMED Code Status Onset Date Resolution Date Notes Provider Name and Address Organization Details Recorded Time No complaints 892084124 Active Status : 'I'; Not Available [facility] 4 09:12:53 Problem Notes None recorded. Medical Equipment None Reported. Allergies Allergen ID Allergen Name Allergen Category Reaction Reaction Severity Criticality Documentation Date Start Date Code Code System Note Provider Name and Address Organization Details Recorded Time 71395 latex environme nt,medica tion Not available Not available Not available 01/29/20242016 29738 91 RxNorm Not Available [facility] 4 13:10:48 Medications Name Sig Start Date [...] Updated DateTime 06/21/2024 152.4 cm 37.1 kg/m2 85725.55 g NANCY [place] [facility] 06/21/2024 13:50:15 Social History None recorded. Functional Status None recorded. Mental Status None recorded. Family History Nothing Reported. Medical History No medical history recorded. Gynecological HistoryNo gynecological history recorded. Obstetrics History GPAL:G 0 P 0 0 0 0 Past Encounters Encounter ID Performer Location Encounter Start Date Encounter Closed Date Diagnosis/Indication Diagnosis SNOMED-CT Code Diagnosis ICD10 Code Diagnosis IMO Codes Diagnosis Note [id number] [facility] [address] [place] [address] 06/21/2024 13:35:03 07/11/2024 09:37:33 Pain of right knee joint 4348104738 25471 M25.561 Health Concerns Section Related Observation LastModified by Organization Detai ls LastModified Time None Recorded Concern Status LastModified by Organization Details LastModified Time None Recorded Advance Directives Directive None Recorded Payers Insurance Date Sequence Insurance Name Policy Number Policy Negron Covered Member ID Negron Member ID Guarantor Name 06/21/2024 1 [place] [employer] [employer] Julita Pimentel [id number] Julita Pimentel 07/11/2024 2 [place] [id number] Julita Pimentel [id number] Julita Pimentel OBGyn Episode No OBEpisode recorded.
--- OUTSIDE RECORDS SUMMARY | 2025-10-21 17:36 | XMS_ITS | Patient Health Record ---
Author Organization [facility] Address [address] [place] [address] Care Team Providers Care Turbine Mechanic Name Role Phone Yanely Otero Unavailable [phone] Allergies No Known Allergies Reason For Referral No Information Medications Medication SIG (Take, Route, Frequency, Duration) Notes Start Date End Date Status Atorvastatin Calcium 40 MG 1 tablet Orally Once a day; Duration: 30 days Active Aspir-81 81 MG 1 tablet Orally Once a day; Duration: 30 day(s) Active amLODIPine Besylate 2.5 MG 1 tablet Orally Once a day Active Isosorbide Mononitrate Active Crestor 10 MG 1 tablet Orally Once a day; Duration: 30 day(s) Not-Taking Cephalexin 500 MG 1 tablet Orally Twic e a day; Duration: 5 days Not-Taking Physical Therapy . . . 2-3x/week; Duration: 3-4 weeks 09/27/2023 Not-Taking Feldene 20 MG 1 capsule with food Orally Once a day; Duration: 14 days 09/22/2021 Not-Taking Ammonium Lactate 12 % 1 application Externally Twice a day; Duration: 30 days Active Augmentin 500-125 MG 1 tablet Orally Twi ce a day; Duration: 7 days 02/12/2019 Not-Taking Metoprolol Tartrate 25 MG 1 tablet with food Orally Twice a day Active Losartan Potassium 50 MG 1 tablet Orally Once a day Active Gabapentin 300 MG 1 capsule Orally Twi ce a day Not-Taking Immunizations Vaccine Route Administration Date Status Comme nts Influenza Unknown 07/28/2024 Administered Influenza Unknown 09/10/2025 Administered COVID-19 Pfizer BioNTech Vaccine Unknown 09/01/2021 [...] Known Problems Vital Signs Blood pressure diastolic 73 mm Hg 10/15/2025 Height 5 ft1in in 10/15/2025 Blood pressure systolic 123 mm Hg 10/15/2025 Weight 182 lbs 10/15/2025 BMI 34.38 kg/m2 10/15/2025 Encounters Encounter Location Date Provider Diagnosis [address] [address] 11/13/2024 Yanely Perica Tinea unguium B35.1 ; Xerosis of skin L85.3 ; Pain in right toe(s) M79.674 and Pain in left toe(s) M79.[address] [address] 01/24/2025 Yanely Perica Tinea unguium B35.1 ; Xerosis of skin L85.3 ; Pain in right toe(s) M79.674 and Pain in left toe(s) M79.[address] [address] 04/01/2025 Yanely Perica Pain in right toe(s) M79.674 ; Onychomycosis B35.1 and Pain in left toe(s) M79.[address] [address] 06/06/2025 Yanely Perica Pain in right toe(s) M79.674 ; Onychomycosis B35.1 and Pain in left toe(s) M79.675 [facility] [address] [address] 08/12/2025 Yaneyl Perica Pain in right toe(s) M79.674 ; Onychomycosis B35.1 and Pain in left toe(s) M79.[address] [address] 10/15/2025 Yanely Perica Pain in right toe(s) M79.674 [...] Pain in right toe(s) (ICD-10 - M79.674) 10/15/2025 Pain in right toe(s) (ICD-10 - M79.674) 10/15/2025 Onychomycosis (ICD-10 - B35.1) 08/12/2025 Onychomycosis (ICD-10 [...] Pain in left toe(s) (ICD-10 - M79.675) 10/15/2025 Pain in left toe(s) (ICD-10 - M79.675) Plan Of Treatment Pending Test Test Name Order Date X ray : Foot, right 3V 09/22/2021 X ray : Foot, right 3V 09/27/2023 Next Appt Details Provider Name:Yanely Lambert Saúl lambert, 12/24/2025 11:00:00 AM, [address] [place] [address], [phone], Provider Name:Yanely Anna lambert, 02/25/2026 11:00:00 AM, [address] [place] [address], [phone], Insurance Providers Payer Name Payer Address Payer Phone Subscriber Number Group Number Insured Name Patient Relationship to Insured Coverage Start Date Coverage End Date Medicare National [employer] [address] [place] [address] [id number] Julita Pimentel Self - patient is the insured [employer] [address] [place] [address] [id number] Julita Pimentel Self - patient is the insured Medical (General) History Medical History History ICD Code Arthritis Back,Hip,and Knee pain CAD (Cholesterol) High blood pressure Psoriasis/eczema Joint implants/screws Surgical History Surgery Date(Month/Year) 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
--- OUTSIDE RECORDS SUMMARY | 2025-10-21 17:36 | XMS_ITS | Clinical Summary ---
Author Organization [facility] [employer] Address [address] [place] [address] Phone Care Team Providers Care Brazer Helper Induction Name Role Phone Maximo Vines MD Primary Care Provider [phone] Allergies No known active allergies Medications metoprolol [...] Assessment & Plan: Patient has history of [place] in the past as noted on previous [...] to complete this topic Insurance [place] BOB [id number] MEDICARE [facility] Care Teams Brazer Helper Induction Relationship Specialty Start Date End Date Maximo Vines MD [address] [place] [address] Dr Wilmer [place] PCP - General Internal Medicine 03/21/22
== END 2025-10-21 14:34 | disposition home or self-care (01) ==
LOC: HO.HGS 13:45
PROVIDERS: PCP Physician Assistant Medical; Visit Provider Surgery
DX: K80.20 Calculus of gallbladder without cholecystitis without obstruction (principal)
CPT/HCPCS: 99214

== ENCOUNTER → 2025-10-21 13:45 | Outpatient (BNVA) | payer MEDICARE, SELFPAY | PROVIDERS: PCP Physician Assistant Medical; Visit Provider Surgery | DX: K80.20 Calculus of gallbladder without cholecystitis without obstruction (principal) | CPT/HCPCS: 99212 ==